=== PATIENT | male | born 1960 ===

== ENCOUNTER 2020-05-16 16:58 | Outpatient (REF) | payer MEDICARE, OTHER, SELFPAY | END 2020-05-16 16:59 | disposition home or self-care (01) | LOC: HO.LAB 16:58 | PROVIDERS: PCP Hospitalist; Visit Provider Internal Medicine | DX: Z20.828 Contact with and (suspected) exposure to other viral communicable diseases (principal) | CPT/HCPCS: U0003 ==

== ENCOUNTER 2020-05-27 15:58 | Emergency (ER) | payer MEDICARE, OTHER, SELFPAY ==
[2020-05-27 16:42] VITALS: BP 140/83; PULSE 92; RESP 18; TEMP 37; O2SAT 97; BMI 25.1
--- NOTE | 2020-05-27 17:29 | XR_ITS ---
EXAMINATION: XR CHEST CLINICAL INFORMATION: Cough. Covid. COMPARISON: None TECHNIQUE: Frontal view of the chest was obtained. FINDINGS: Cardiac silhouette is normal in size. Lungs are well aerated. There is no lobar consolidation. No pleural effusion or pneumothorax. No gross osseous abnormality. XR/XR chest 1V IMPRESSION: No acute pulmonary pathology.
--- NOTE | 2020-05-27 17:36 | ED.NAVMDI ---
HPI - Nausea/Vomiting/Diarrhea General Chief complaint: Nausea/Vomiting/Diarrhea Stated complaint: SOB/COVID + Time Seen by Provider: 05/27/20 16:34 Source: patient Mode of arrival: ambulatory Limitations: no limitations History of Present Illness HPI Narrative: Patient presents to the ED for slight nausea/vomiting / diarrhea, and mild SOB. Patient states no fever or chills. Patient states having symptoms for the past 4 days, and recently diagnosed with COVID 4 days ago. Patient states family members at home having similar symptoms. Associated nausea: Yes ( mild) Related Data Previous Rx's Medication Instructions Recorded sertraline 100 mg tablet 100 mg PO DAILY 90 Days #90 tab 04/25/20 Allergies Allergy/AdvReac Type Severity Reaction Status Date / Time No Known Allergies Allergy Verified 05/27/20 16:42 Review of Systems Review of Systems: Yes all other systems are reviewed and are negative Constitutional: Constitutional: Reports as per HPI and Reports no additional constitutional complaints Eyes: Eyes: Reports as per HPI and Reports no additional eye complaints ENT: Reports system reviewed and no additional complaints, except as documented and Reports as per HPI Cardiovascular: Cardiovascular: Reports as per HPI, Reports no additional cardiovascular complaints, Denies chest pain, Denies chest pain at rest, Denies chest pain with activity, Denies dyspnea, Denies dyspnea on exertion, Denies orthopnea and Denies paroxysmal nocturnal dyspnea Respiratory: Respiratory: Denies cough, Denies pain on inspiration, Denies pain with cough, Denies dyspnea and Denies dyspnea on exertion Gastrointestinal: Gastrointestinal: Reports as per HPI, Reports no additional gastrointestinal complaints, Denies abdominal pain, Reports diarrhea ( Mild), Reports nausea ( mild) and Reports vomiting ( mild) Genitourinary: Genitourinary: Reports no additional male genitourinary complaints and Reports as per HPI Musculoskeletal: Musculoskeletal: Reports no additional musculoskeletal complaints and Reports as per HPI Neurologic: Reports system reviewed and no additional complaints, except as documented and Reports as per HPI Psychiatric: Psychiatric: Reports no additional psychiatric complaints and Reports as per HPI [facility] Past Medical History Medical History (Updated 05/27/20 @ 18:42 by CARMEN Rod) Depression Social History Social History Advance Directives: No Advance Directives Information Provided: Yes Physical Exam Vital Signs: Vital Signs: Last Vital Signs Temp 98.6 F 05/27/20 16:42 Pulse 92 05/27/20 16:42 Resp 18 11/09/20 16:42 BP 140/83 H 05/27/20 16:42 Pulse Ox 97 05/27/20 16:42 Body Mass Index 25.1 Const: General: cooperative, healthy appearing, comfortable, no acute distress, well developed, alert, awake and Physically active Orientation/consciousness: patient oriented x3 HENMT: Head: Yes normal to inspection and Yes No palpable skull fracture present Eyes: General: appearance normal, both eyes and all related structures Visual Ingram: normal visual ingram by confrontation Neck: Neck: Yes normal visual inspection, Yes full ROM, Yes no lymphadenopathy, Yes no meningeal signs and Yes trachea midline Chest: Chest palpation & inspection: normal inspection of the chest, normal palpation of entire chest wall and no localized rib tenderness Resp: Effort & Inspection: normal respiratory effort, able to speak in complete sentences, normal respiratory pattern, no audible wheezes and no cough Auscultation: clear to auscultation bilaterally, no crackles, no rales, no rhonchi and no wheezes Cardio: Jugular venous distension: no JVD Heart sounds: S2 normal heart sound present GI: Inspection: Yes normal to inspection and No abdominal wall ecchymosis Palpation (GI): Soft to palpation, not firm, nontender, no guarding and not rigid : General: No CVA tenderness and Yes no CVA tenderness Back/Spine/Pelvis: Back: no CVA tenderness, No CVA tenderness and No back tenderness Skin: General skin exam: no rashes or lesions noted Neuro: General: patient oriented x3, gait normal, no meningeal signs and CN's II-XI intact bilaterally Cranial nerves: Yes CN's II-XII intact bilaterally Extrem: Other: negative for any swelling, redness, calf tenderness, or pitting edema of lower extremities. General: Yes normal to inspection and Yes full ROM Psych: Appearance: grossly normal, well kempt and not disheveled Course Course Course Narrative: patient presently not in any distress. Patient is on the phone watching videos. Patient speaking in clear sentences. Patient abdomen is nontender and benign. Patient's vital signs are stable. Patient is not in acute respiratory distress. Patient will be sent for chest x-ray needs to make sure there is no bilateral opacity. Reevaluation(s) Reevaluation #1: Patient's chest x-ray came back negative for any bilateral opacities. Patient presently not in any Respiratory distress. Patient is not toxic appearing. Patient is safe for discharge. Patient educated on continuing quarantine. MDM - Nausea/Vomiting/Diarrhea MDM Narrative Medical decision making narrative: COVID positive 19 Discharge Plan Discharge Clinical Impression: COVID-19 Patient Disposition: Home, Self-Care Instructions: COVID-19 (Coronavirus Disease 2019) (ED) Additional Instructions: return to the ED for any chest pain, shortness of breath, dizziness, inability to tolerate solid food/liquid, or any other concerning symptoms. Recommend 14 days self-isolation Prescriptions: No Action sertraline 100 mg tablet 100 mg PO DAILY 90 Days Qty: 90 RF: 3 Referrals: Claire Natarajan NP [Primary Care Provider] - 2 days ( Positive COVID-19 with viral sequela.) Interventions: ED Discharge Assessment Last Done: 05/27/20 19:40 Discharge Date/Time: 05/27/20 19:41 Print Language: Puerto Rican
== END 2020-05-27 19:41 | disposition home or self-care (01) ==
PROVIDERS: Emergency Provider Internal Medicine; PCP Hospitalist
DX: U07.1 COVID-19 (principal); R11.2 Nausea with vomiting, unspecified; Z79.899 Other long term (current) drug therapy
CPT/HCPCS: 71045; 99283

== ENCOUNTER 2020-05-30 10:35 | Outpatient (REF) | payer MEDICARE, OTHER, SELFPAY | END 2020-05-30 10:36 | disposition home or self-care (01) | LOC: HO.LAB 10:35 | PROVIDERS: Visit Provider Internal Medicine | DX: Z20.828 Contact with and (suspected) exposure to other viral communicable diseases (principal) | CPT/HCPCS: C9803; U0003 ==

== ENCOUNTER 2020-06-27 06:12 | Outpatient (REF) | payer MEDICARE, OTHER, SELFPAY ==
[2020-06-27 07:23] LABS: Hematocrit 43.6 % (42-52); Hemoglobin 14.8 g/dl (14.0-18.0); Mean Corpuscular HGB Conc 33.9 g/dl (31.0-36.0); Mean Corpuscular Hemoglobin 29.5 pg (27.0-33.0); Mean Corpuscular Volume 86.9 fL (80-98); Platelet Count 218 X10*3/uL (160-400); Red Blood Count 5.02 X10*6/uL (4.60-5.80); Red Cell Distribution Width 13.2 % (11.0-16.0); White Blood Count 5.9 X10*3/uL (4.8-10.8)
[2020-06-27 07:42] LABS: Alanine Aminotransferase 19 U/L (0-40); Albumin Level 4.3 g/dL (3.5-5.0); Alkaline Phosphatase 58 U/L (39-117); Anion Gap 11 (12-20); Aspartate Amino Transferase 17 U/L (5-37); Bilirubin Direct 0.3 mg/dL (0.0-0.5); Bilirubin Total 0.5 mg/dL (0.0-1.0); Blood Urea Nitrogen 8 mg/dL (9-16); Carbon Dioxide 28 mmol/L (22-29); Chloride 106 mmol/L (96-108); Cholesterol 171 mg/dL; Estimated Glomerular Filt Rate > 60; Glucose Fasting 161 mg/dL (60-99); HDL Cholesterol 41 mg/dL; LDL Cholesterol Calculated 110 mg/dl; Potassium 4.2 mmol/l (3.3-5.1); Sodium 141 mmol/L (135-145); Total Protein 6.9 g/dL (6.5-8.0); Triglycerides 100 mg/dL
[2020-06-27 08:06] LABS: TSH reflex Free T4 1.11 mIU/mL (0.32-4.0)
== END 2020-06-27 06:13 | disposition home or self-care (01) ==
LOC: HO.LAB 06:12
PROVIDERS: Visit Provider Hospitalist
DX: Z00.00 Encounter for general adult medical examination without abnormal findings (principal); Z13.220 Encounter for screening for lipoid disorders; Z13.29 Encounter for screening for other suspected endocrine disorder
CPT/HCPCS: 36415; 80048; 80061; 80076; 84443; 85027

== ENCOUNTER 2021-03-03 22:02 | Emergency (ER) | payer MEDICARE, OTHER, SELFPAY ==
[2021-03-03 22:32] VITALS: BP 147/82; PULSE 89; RESP 18; TEMP 36.9; O2SAT 99; BMI 26.4
[2021-03-03 23:11] LABS: Influenza A PCR NEGATIVE (Negative); Influenza B PCR NEGATIVE (Negative); Resp Syncy Virus RNA Qual PCR NEGATIVE (Negative); SARS COV2 PCR INHOUSE NEGATIVE (Negative)
--- NOTE | 2021-03-03 23:29 | ED_ITS ---
HPI - URI/Sore Throat General Chief Complaint: Upper Respiratory Symptoms Stated Complaint: Flu like symptoms Time Seen by Provider: 03/03/21 22:09 Source: patient Mode of arrival: ambulatory History of Present Illness HPI Narrative: Diabetes presents with 2 days of dry cough, itchy left ear, intermittent diarrhea as well as headache but denies any fever, chills, sob, urinary symptoms, nausea or vomiting. PATIENT HAS HAD BOTH COVID-19 VACCINES THE 2ND OF WHICH WAS IN OCTOBER. Related Data Previous Rx's Medication Instructions Recorded sertraline 100 mg tablet 100 mg PO DAILY 90 Days #90 tab 04/25/20 blood sugar diagnostic (OneTouch #10 ea 06/11/20 Verio test strips) lancets 33 gauge (OneTouch Delica #100 ea 06/11/20 Lancets) pravastatin 40 mg tablet 40 mg PO DAILY #90 tab 06/15/20 metformin 750 mg tablet,extended 750 mg PO BID #180 tab 06/19/20 release 24 hr omeprazole 20 mg capsule,delayed 20 mg PO DAILY #90 cap 09/24/20 release pioglitazone 30 mg-glimepiride 2 1 tab PO QAM #90 tab 10/23/20 mg tablet lisinopril 20 mg tablet 20 mg PO DAILY 90 Days #90 tab 12/20/20 Allergies Allergy/AdvReac Type Severity Reaction Status Date / Time No Known Allergies Allergy Verified 03/03/21 22:32 Review of Systems Review of Systems: Pertinent positives and negatives as stated in HPI 10 point review of systems otherwise negative. [facility] Past Medical History Source: nursing notes reviewed Medical History Depression Surgical History History of removal of cyst History of shoulder surgery Family History Family History Father No problems noted. Mother Colon cancer Diabetes Sister Diabetes Social History Social History Advance Directives: No Advance Directives Information Provided: No Physical Exam Vital Signs: Vital Signs: Last Vital Signs Temp 98.4 F 03/03/21 22:32 Pulse 89 03/03/21 22:32 Resp 18 08/16/21 22:32 BP 147/82 H 03/03/21 22:32 Pulse Ox 99 03/03/21 22:32 Body Mass Index 26.4 VITAL SIGNS: Reviewed. GENERAL: Well developed, well nourished, in no acute distress. HEAD: Normocephalic/atraumatic, EYES: PERRLA, EOMI EARS: Ext canals without abnormality, TMs non-bulging and non-erythematous NOSE: Nares patent bilateral, boggy turbinates OROPHARYNX: no oral lesions noted, posterior pharynx clear and non-erythematous without noted tonsillar enlargement/erythema/exudates NECK: Supple, no adenopathy LUNGS: Normal breath sounds. No adventitious sounds or accessory muscle use. SpO2<99> CARDIOVASCULAR: Regular rate and rhythm without noted murmurs ABDOMEN: Soft, non-tender, non-distended with bowel sounds, no CVA tenderness SKIN: Inspection of the skin reveals no rashes NEUROLOGIC: Alert and oriented x 4. Course Course Course Narrative: 60-year-old male with history and clinical presentation consistent with allergies, viral syndrome. Review of all investigations negative for acute findings and patient discharged in stable condition with instructions to follow-up with his primary care provider as well as obtaining a 2nd COVID-19 test in the next 3-4 days. MDM - URI/Sore Throat Lab Data Labs: Lab Results 03/03/21 Range/Units 22:28 Coronavirus (PCR) NEGATIVE (Negative) Influenza Type A (PCR) NEGATIVE (Negative) Influenza Type B (PCR) NEGATIVE (Negative) RSV RNA Qual (PCR) NEGATIVE (Negative) Discharge Plan Discharge Clinical Impression: Viral syndrome Patient Disposition: Home, Self-Care Instructions: Viral Syndrome (ED) Additional Instructions: 1. Follow-up with your primary care provider the next 1-2 days for re- evaluation. Resume all home medications as prescribed. 2. Recommend repeat COVID-19 testing in the next 3-4 days. [id number] Tylenol/ibuprofen as needed for headache, body aches, any temperatures greater than 100.4. Return to the ER for acute worsening of symptoms. Prescriptions: No Action sertraline 100 mg tablet 100 mg PO DAILY 90 Days Qty: 90 RF: 3 (DME) OneTouch Verio test strips Strip See Rx Instructions .ROUTE .MEDSUPPLY Qty: 10 RF: 0 (DME) lancets [OneTouch Delica Lancets] 33 gauge misc See Rx Instructions .ROUTE .MEDSUPPLY Qty: 100 RF: 0 pravastatin 40 mg tablet 40 mg PO DAILY Qty: 90 RF: 1 metformin 750 mg tablet extended release 24 hr 750 mg PO BID Qty: 180 RF: 3 pioglitazone-glimepiride 30-2 mg tablet 1 tab PO QAM Qty: 90 RF: 2 lisinopril 20 mg tablet 20 mg PO DAILY 90 Days Qty: 90 RF: 1 omeprazole 20 mg capsule,delayed release(DR/EC) 20 mg PO DAILY Qty: 90 RF: 3 Referrals: Claire Natarajan INGREDIENT SPECIALIST [Primary Care Provider] - 2 days Print Language: Frisian
== END 2021-03-03 23:53 | disposition home or self-care (01) ==
PROVIDERS: Emergency Provider Student in an Organized Health Care Education/Training Program; PCP Hospitalist
DX: B34.9 Viral infection, unspecified (principal); Z20.822 Contact with and (suspected) exposure to COVID-19; R51.9 Headache, unspecified; E11.9 Type 2 diabetes mellitus without complications; I10 Essential (primary) hypertension; Z79.899 Other long term (current) drug therapy
CPT/HCPCS: 0241U; 36415; 99282; 99283

== ENCOUNTER 2021-04-24 07:57 | Outpatient (REF) | payer MEDICARE, OTHER, SELFPAY ==
[2021-04-24 09:24] LABS: Alanine Aminotransferase 18 U/L (0-40); Albumin Level 4.1 g/dL (3.5-5.0); Alkaline Phosphatase 63 U/L (39-117); Anion Gap 11 (12-20); Aspartate Amino Transferase 16 U/L (5-37); Bilirubin Total 0.7 mg/dL (0.0-1.0); Blood Urea Nitrogen 12 mg/dL (9-16); Carbon Dioxide 28 mmol/L (22-29); Chloride 108 mmol/L (96-108); Cholesterol 176 mg/dL; Estimated Glomerular Filt Rate > 60; Glucose Fasting 146 mg/dL (60-99); HDL Cholesterol 38 mg/dL; LDL Cholesterol Calculated 108 mg/dl; Potassium 4.5 mmol/L (3.3-5.1); Sodium 142 mmol/L (135-145); Total Protein 6.5 g/dL (6.5-8.0); Triglycerides 151 mg/dL
[2021-04-24 09:48] LABS: Prostate Specific Antigen Scr 0.85 ng/mL (<0.05-4.0); TSH reflex Free T4 0.89 uIU/mL (0.32-4.0)
[2021-04-24 10:19] LABS: Microalbum/Creatinine Ratio Ur 6.6 ug/mg cr
== END 2021-04-24 07:58 | disposition home or self-care (01) ==
LOC: HO.LAB 07:57
PROVIDERS: PCP Family Medicine; Visit Provider Family Medicine
DX: Z00.00 Encounter for general adult medical examination without abnormal findings (principal); Z12.5 Encounter for screening for malignant neoplasm of prostate; E11.9 Type 2 diabetes mellitus without complications; I10 Essential (primary) hypertension
CPT/HCPCS: 36415; 80053; 80061; 82043; 84153; 84443

== ENCOUNTER 2021-06-24 11:01 | Outpatient (REF) | payer MEDICARE, OTHER, SELFPAY | END 2021-06-24 11:02 | disposition home or self-care (01) | LOC: HO.LAB 11:01 | PROVIDERS: PCP Hospitalist; Visit Provider Internal Medicine | DX: Z20.822 Contact with and (suspected) exposure to COVID-19 (principal) | CPT/HCPCS: C9803; U0003; U0005 ==

== ENCOUNTER → 2021-08-20 08:44 | Outpatient (BNVA) | payer MEDICARE, OTHER, SELFPAY | PROVIDERS: PCP Hospitalist; Referring Provider Hospitalist; Visit Provider Nurse Practitioner Family | DX: Z12.11 Encounter for screening for malignant neoplasm of colon (principal); K21.9 Gastro-esophageal reflux disease without esophagitis | CPT/HCPCS: 99202 ==

== ENCOUNTER 2021-10-16 07:37 | Outpatient (REF) | payer MEDICARE, SELFPAY ==
[2021-10-16 08:31] LABS: Hematocrit 43.5 % (42.0-52.0); Hemoglobin 15.3 g/dl (14.0-18.0); Mean Corpuscular HGB Conc 35.2 g/dl (31.0-36.0); Mean Corpuscular Hemoglobin 30.4 pg (27.0-33.0); Mean Corpuscular Volume 86.5 fL (80.0-98.0); Mean Platelet Volume 11.1 fL (9.4-12.4); Platelet Count 217 X10*3/uL (160-400); Red Blood Count 5.03 X10*6/uL (4.60-5.80); Red Cell Distribution Width 12.2 % (11.0-16.0); White Blood Count 5.3 X10*3/uL (4.8-10.8)
[2021-10-16 08:45] LABS: Estimated Average Glucose 148 mg/dL; Hemoglobin A1c % 6.8 %
== END 2021-10-16 07:38 | disposition home or self-care (01) ==
LOC: HO.LAB 07:37
PROVIDERS: PCP Hospitalist; Visit Provider Hospitalist
DX: E11.9 Type 2 diabetes mellitus without complications (principal); I10 Essential (primary) hypertension
CPT/HCPCS: 36415; 83036; 85027

== ENCOUNTER → 2021-12-01 10:30 | Outpatient (BNVA) | payer MEDICARE, SELFPAY | PROVIDERS: PCP Hospitalist; Referring Provider Hospitalist; Visit Provider Internal Medicine Cardiovascular Disease | DX: R06.00 Dyspnea, unspecified (principal) | CPT/HCPCS: 93005; 99202 ==

== ENCOUNTER → 2021-12-03 10:16 | Outpatient (BNVA) | payer MEDICARE, OTHER, SELFPAY | PROVIDERS: PCP Hospitalist; Visit Provider Internal Medicine Pulmonary Disease | DX: R06.00 Dyspnea, unspecified (principal); U09.9 Post COVID-19 condition, unspecified | CPT/HCPCS: 99202 ==

== ENCOUNTER 2021-12-11 13:05 | Outpatient (REF) | payer MEDICARE, OTHER, SELFPAY ==
--- NOTE | ~2021-12-11 | CT_ITS ---
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 COMPARISON: Radiograph 05/27/2020. TECHNIQUE: Multidetector volumetric CT imaging of the chest was done. Axial MIP volume rendering provided. Sagittal and coronal reformatted images were obtained. This CT examination was performed using dose optimization techniques as appropriate, variously including the following: *Automated exposure control *Adjustment of mA and/or kV according to patient size (this includes techniques or standardized protocols for targeted exams where dose is matched to indication/reason for exam; i.e. extremities or head) *Use of iterative reconstruction technique DLP: 152 mGy-cm FINDINGS: BODY MECHANIC: Unremarkable. LUNGS: Minimal secretions in the trachea anteriorly. The central airways are otherwise patent.. No dense consolidation. Minimal peripheral groundglass nodular opacity in the subpleural right upper lobe, for instance on series 8 image 174. 0.2 cm right upper lobe nodule on series 8 image 81.. No pneumothorax. MEDIASTINUM: Normal heart size. No pericardial effusion. No mediastinal lymphadenopathy. PLEURA: There is no pleural effusion. No pleural mass or thickening. AXILLA: No lymphadenopathy. UPPER ABDOMEN: Unremarkable. OSSEOUS STRUCTURES: No acute or suspicious osseous abnormality. Mild degenerative changes of the spine. CT/CT chest wo con IMPRESSION: No consolidation or significant groundglass disease. There are subtle subpleural groundglass nodule in the right upper lobe noted, which could be infectious or inflammatory. There is a right upper lobe 0.2 cm nodule. If this is a high-risk patient, consider 12 month follow-up chest CT. Fleischner guidelines were followed.
== END 2021-12-11 13:06 | disposition home or self-care (01) ==
LOC: HO.CT 13:05
PROVIDERS: Visit Provider Internal Medicine Pulmonary Disease
DX: U09.9 Post COVID-19 condition, unspecified (principal)
CPT/HCPCS: 71250

== ENCOUNTER → 2021-12-12 08:44 | Outpatient (REF) | payer MEDICARE, OTHER, SELFPAY ==
--- NOTE | 2021-12-12 08:47 | CA_ITS ---
Acquisition Time: 2021-12-12 08:57:28 Total Exercise Time: 00:07:18 Test Indications: DYSPNEA Medications: SEE CHART Protocol: MARCUS Max HR: 137 BPM 85% of Pred: 161 BPM Max BP: 144/050 mmHG Max Work Load: 8.9 METS Exercise sstress test with exercise 7 min 18 sec of Marcus protocol, achieving 85% MPHR and request to stop due to sob, with visiably mild to moderate sob, no chest discomfort, with isolated PAC, with normotensive response to exercise, without EKG changes meeting criteria for ischemia. In recovery his breathing quickly normalized. Test reviewed with Dr Liu. Referred By: Dank Liu Overread By: MARY ELLEN GONSALEZ
== END ==
LOC: HO.CARD 08:44
PROVIDERS: PCP Hospitalist; Visit Provider Internal Medicine Cardiovascular Disease
DX: R06.00 Dyspnea, unspecified (principal); U09.9 Post COVID-19 condition, unspecified
CPT/HCPCS: 93017

== ENCOUNTER 2021-12-26 10:26 | Outpatient (REF) | payer MEDICARE, OTHER, SELFPAY ==
--- NOTE | 2021-12-26 12:43 | PFT_ITS ---
INDICATION: Dyspnea. SPIROMETRY: The FEV1 to FVC 87% with an FEV1 of 3.16 L, which is 82% predicted. An FVC of 3.61 L, which is 74% predicted. No significant response to bronchodilators noted. Maximum voluntary ventilation 92% predicted. LUNG VOLUMES: Total lung capacity 65% predicted with an expiratory reserve volume of 34% predicted. DIFFUSION CAPACITY: DLCO of 65% predicted. It does correct to 100% when correcting for the alveolar volume. COMPARISONS: None. INTERPRETATION: No obstructive ventilatory defect no significant response to bronchodilators noted. Normal maximum voluntary ventilation, although the patient does have a restrictive ventilatory defect consistent with mild to moderate restrictive lung disease. Partly due to his body habitus with an expiratory reserve volume of only 34%, interstitial lung conditions, neuromuscular conditions cannot be ruled out. The patient also has a mild diffusion impairment that does correct to normal when correcting for the alveolar volume. Clinical correlation warranted. MD NOE Raygoza/NELSON / [phone]
== END 2021-12-26 10:27 | disposition home or self-care (01) ==
LOC: HO.RESP 10:26
PROVIDERS: PCP Hospitalist; Visit Provider Internal Medicine Pulmonary Disease
DX: R06.00 Dyspnea, unspecified (principal)
CPT/HCPCS: 94060; 94727; 94729

== ENCOUNTER → 2022-01-13 08:16 | Outpatient (REF) | payer MEDICARE, OTHER, SELFPAY ==
--- NOTE | 2022-01-13 08:18 | CA_ITS ---
Transthoracic Echocardiogram Patient (Last, First, Middle): Boone Hernandez, Gender: Male Date of : 1960 Age: 61 Procedure Date: 01/13/2022 Procedure Type: Transthoracic Echocardiogram Location: OP Height: 180.34 cm Weight: 88.91 kg BSA: 2.09 m2 Heart Rate: bpm BP: 140 / 82 mmHg Director Of Operations Home Health: EMELIA Referring MD: Dank Liu MD Corrosion Control Fitter: Roberto Antoine MD Symptoms: R06.00 - Dyspnea, unspecified Study Quality: Fair ECG Rhythm: Sinus Conclusions: - The left ventricular systolic function is normal. The calculated ejection fraction is 63% by biplane method. - Cannot exclude mild basal inferior hypokinesis. - No obvious valvular pathology seen on this study. Findings Left Ventricle Normal left ventricular cavity size. There is mildly increased left ventricular wall thickness. The left ventricular systolic function is normal. The calculated ejection fraction is 63% by biplane method. Diastolic function is normal for age. Cannot exclude mild basal inferior hypokinesis. Right Ventricle Normal right ventricular cavity size and systolic function. Atria Both atria are normal in size. Aortic Valve There is a normal trileaflet aortic valve. There is no aortic valve stenosis. There is no aortic valve regurgitation. Mitral Valve The mitral valve appears normal. There is no mitral valve regurgitation. There is no mitral valve stenosis. Pulmonic Valve The pulmonic valve is likely normal. Tricuspid Valve Normal tricuspid valve structure. There is trace tricuspid valve regurgitation. The pulmonary artery systolic pressure is normal. Great Vessels The asc aorta and aortic arch are normal in size. Venous The inferior vena cava is normal in size and collapses greater than 50% with inspiration. Pericardium/Pleural There is no evidence of pericardial effusion. Prior Study Comparison No prior study available for comparison. Recommendations, Care & Conclusions No obvious valvular pathology seen on this study. Measurements 2D Linear Measurements IVSd: 1.12 0.6-0.9/0.6-1.0 cm LVIDd: 4.33 3.9-5.3/4.2-5.9 cm LVIDd Index: 2.07 2.4-3.2/2.2-3.1 cm/m2 LVIDs: 2.46 2.0-3.6 cm LVPWd: 1.04 0.7-1.1 cm LA Diam: 3.10 2.7-3.8/3.0-4.0 cm LAIDs Index: 1.48 1.5-2.3 cm/m2 LV Mass: 199.86 67-162/88-224 g LV Mass Index: 95.63 43-95/49-115 g/m2 LVOT Diam: 2.00 3.0+(-)1.3 cm 2D Systolic Function EF 4C: 63.60 >55% EF 2C: 61.00 >55% EF BiP: 62.80 >55% Mitral Valve MV Pk E: 1.13 MV PK A: 0.69 MV Decel Time: 187.00 E/A: 1.60 E'Lateral: 9.57 E'Medial: 6.74 E/E' Med: 16.80 E/E' Lat: 11.80 PHT: 55.00 MVA PHT: 4.00 Decel [place]: 6.04 Aortic Valve AoV Pk Nadeem: 1.50 AoV Mn Nadeem: 0.96 AoV VTI: 0.39 AoV Pk Grad: 9.00 Aov Mn Grad: 4.00 JUANCHO Cont.VTI: 2.40 LVOT LVOT Pk Nadeem: 1.33 LVOT Mn Nadeem: 0.75 LVOT VTI: 0.29 LVOT Pk Grad: 7.00 LVOT Mn Grad: 3.00 LVOT Diam: 2.00 LVOT Area: 3.14 Diastolic Function MV Pk E: 1.13 MV Pk A: 0.69 E/A: 1.60 E'Medial: 6.74 E/E' Med: 16.80 E' Laterial: 9.57 E/E' Lat: 11.80 Right Ventricle TAPSE (mm): 21.40 TVS' Nadeem: 13.40 Tricuspid Valve TR Pk Nadeem: 2.33 TR Pk Grad: 22.00 RA Press: 3.00 RVSP: 25.00 Great Vessels Aorta Sinus of Valsalva: 3.59 2.0-3.[address] [place]: 3.09 1.7-3.4 cm Ao Asc: 3.40 2.1-3.4 cm Ao Arch: 3.00 Updated in Other Vendor System with Status of Final Roberto Antoine MD electronically signed on 01/15/2022 2:12:15 PM with status of Final
== END ==
LOC: HO.CARD 08:16
PROVIDERS: PCP Hospitalist; Visit Provider Internal Medicine Cardiovascular Disease
DX: R06.00 Dyspnea, unspecified (principal); U09.9 Post COVID-19 condition, unspecified
CPT/HCPCS: 93306

== ENCOUNTER → 2022-01-16 11:22 | Outpatient (BNVA) | payer MEDICARE, OTHER, SELFPAY | PROVIDERS: PCP Hospitalist; Visit Provider Internal Medicine Pulmonary Disease | DX: R06.00 Dyspnea, unspecified (principal); U09.9 Post COVID-19 condition, unspecified; R94.2 Abnormal results of pulmonary function studies | CPT/HCPCS: 99212 ==

== ENCOUNTER 2022-05-01 09:11 | Outpatient (REF) | payer MEDICARE, OTHER, SELFPAY ==
[2022-05-01 09:58] LABS: Estimated Average Glucose 157 mg/dL; Hemoglobin A1c % 7.1 %
[2022-05-01 10:19] LABS: Alanine Aminotransferase 49 U/L (0-40); Albumin Level 4.7 g/dL (3.5-5.0); Alkaline Phosphatase 60 U/L (39-117); Anion Gap 17 (12-20); Aspartate Amino Transferase 36 U/L (5-37); Blood Urea Nitrogen 20 mg/dL (9-16); Calcium 9.8 mg/dL (8.4-10.2); Carbon Dioxide 27 mmol/L (22-29); Chloride 105 mmol/L (96-108); Cholesterol 183 mg/dL; Estimated Glomerular Filt Rate 54; Glucose Fasting 173 mg/dL (60-99); HDL Cholesterol 38 mg/dL; LDL Cholesterol Calculated 116 mg/dl; Magnesium 1.6 mg/dL (1.6-2.6); Potassium 4.6 mmol/L (3.3-5.1); Sodium 144 mmol/L (135-145); Total Protein 7.3 g/dL (6.5-8.0); Triglycerides 146 mg/dL
== END 2022-05-01 09:12 | disposition home or self-care (01) ==
LOC: HO.LAB 09:11
PROVIDERS: PCP Hospitalist; Visit Provider Hospitalist
DX: Z12.5 Encounter for screening for malignant neoplasm of prostate (principal); E78.00 Pure hypercholesterolemia, unspecified; K21.9 Gastro-esophageal reflux disease without esophagitis; E11.9 Type 2 diabetes mellitus without complications; I10 Essential (primary) hypertension
CPT/HCPCS: 36415; 80053; 80061; 83036; 83735; 84100; 84153

== ENCOUNTER → 2022-05-06 13:27 | Outpatient (BNVA) | payer MEDICARE, OTHER, SELFPAY | PROVIDERS: PCP Hospitalist; Visit Provider Anesthesiology | DX: M53.3 Sacrococcygeal disorders, not elsewhere classified (principal); M47.816 Spondylosis without myelopathy or radiculopathy, lumbar region; M46.1 Sacroiliitis, not elsewhere classified | CPT/HCPCS: 99202 ==

== ENCOUNTER 2022-05-11 09:30 | Outpatient (REF) | payer MEDICARE, OTHER, SELFPAY ==
--- NOTE | ~2022-05-11 | XR_ITS ---
EXAMINATION: XR LUMBOSACRAL SPINE WITH OBLIQUES CLINICAL INFORMATION: Spondylosis COMPARISON: Previous x-ray March 2020 TECHNIQUE: AP, both oblique, and lateral views of the lumbar spine. Lateral view of the lumbosacral junction. FINDINGS: Bone alignment is normal. No fracture or dislocation is seen. Disc spaces are normal. No pars defect is seen. There is mild facet arthritis of the lower lumbar spine at L5-S1. XR/XR lumbar spine 4V min IMPRESSION: Facet arthritis at L5-S1.
--- NOTE | ~2022-05-11 | XR_ITS ---
EXAMINATION: XR PELVIS CLINICAL INFORMATION: Sacrococcygeal disorder COMPARISON: Previous x-ray October 2016 and August 2014 TECHNIQUE: AP view of the pelvis. FINDINGS: Bone alignment is normal. No fracture or dislocation. There is mild arthritis at the hip joints, left greater than right. There is a nonexpansile lucent lesion in the left superior pubic ramus and pubic symphysis that appears unchanged from older exams going back to 2014 and therefore likely benign. The sacroiliac joints are normal. Soft tissues are normal. XR/XR pelvis 1-2V IMPRESSION: Mild bilateral hip arthritis, left greater than right. Stable lucent lesion in the left pubic symphysis and superior pubic ramus from old exam suggestive of a benign lesion.
== END 2022-05-11 09:31 | disposition home or self-care (01) ==
LOC: HO.XRAY 09:30
PROVIDERS: PCP Hospitalist; Visit Provider Anesthesiology
DX: M47.816 Spondylosis without myelopathy or radiculopathy, lumbar region (principal); M53.3 Sacrococcygeal disorders, not elsewhere classified
CPT/HCPCS: 72110; 72170

== ENCOUNTER 2022-06-24 09:00 | Outpatient (RCR) | payer MEDICARE, OTHER, SELFPAY ==
[2022-06-02 08:03] VITALS: BP 118/70; PULSE 66; O2SAT 97
== END 2022-09-10 07:53 | disposition home or self-care (01) ==
LOC: HO.PTWFD 09:00
PROVIDERS: PCP Hospitalist; Visit Provider Anesthesiology
DX: M46.1 Sacroiliitis, not elsewhere classified (principal); M47.816 Spondylosis without myelopathy or radiculopathy, lumbar region; M53.3 Sacrococcygeal disorders, not elsewhere classified
CPT/HCPCS: 97012; 97110; 97116; 97140; 97150; 97161; 97535

== ENCOUNTER 2022-11-30 17:08 | Emergency (ER) | payer MEDICARE, MEDICAID, SELFPAY ==
--- NOTE | ~2022-11-30 | XR_ITS ---
EXAMINATION: XR FOOT, RIGHT CLINICAL INFORMATION: Atraumatic right foot pain for one day. COMPARISON: None available. TECHNIQUE: AP, lateral, and oblique views of the right foot. Indicating arrow points to the fifth metatarsal. FINDINGS: The bones and soft tissues are normal. No fracture. Alignment is anatomic. Small retrocalcaneal spur. Joint spaces are maintained. XR/XR foot RT 2V IMPRESSION: Small retrocalcaneal spur without other significant abnormality.
--- NOTE | 2022-11-30 17:12 | ED.LOWEXIN ---
HPI - Extremity Injury (Lower) General Chief Complaint: Extremity Injury, Lower <Hetal Morris NP - Last Filed: 11/30/22 17:15> Stated Complaint: right foot injury <Hetal Morris NP - Last Filed: 11/30/22 17:15> Time Seen by Provider: 11/30/22 18:35 <Hetal Morris NP - Last Filed: 11/30/22 17:15> Source: patient <CARMEN Jara - Last Filed: 11/30/22 18:45> Mode of arrival: ambulatory <CARMEN Jara - Last Filed: 11/30/22 18:45> Limitations: no limitations <CARMEN Jara Last Filed: 11/30/22 18:45> History of Present Illness HPI Narrative: This is a 61-year-old male history of hypercholesterolemia, gout, GERD, diabetes, hypertension and depression presenting for evaluation of right foot pain, x1 day, atraumatic. Patient reports pain is worse around the little toe, he does not think she injured this toe. He tells me he has a history of gout this feels similar to gout episodes. Denies numbness, tingling, fevers, chills, chest pain, shortness of breath, lower extremity swelling <CARMEN Jara - Last Filed: 11/30/22 18:45> Related Data Home Medications: Previous Rx's Medication Instructions Recorded blood sugar diagnostic (OneTouch #10 ea 06/11/20 Verio test strips) lancets 33 gauge (OneTouch Delica #100 ea 06/11/20 Lancets) blood pressure test kit-large #1 ea 12/10/21 hydrochlorothiazide 25 mg tablet 25 mg PO DAILY #90 tabs 05/07/22 lisinopril 20 mg tablet 20 mg PO DAILY #90 tabs 05/20/22 sertraline 100 mg tablet 100 mg PO DAILY 90 days #90 tabs 05/20/22 metformin 1,000 mg tablet 1,000 mg PO BID #60 tabs 07/21/22 omeprazole 20 mg capsule,delayed 20 mg PO DAILY #90 caps 07/21/22 release pioglitazone 30 mg-glimepiride 2 1 tab PO QAM #90 tabs 07/21/22 mg tablet duloxetine 30 mg capsule,delayed 30 mg PO DAILY #30 caps 07/22/22 release pravastatin 40 mg tablet 40 mg PO DAILY #90 tabs 09/07/22 salmeterol 50 mcg/dose blister 1 inh PO BID 1 month #60 ea 10/19/22 powder for inhalation (Serevent Diskus) albuterol sulfate 90 mcg/actuation 2 puff PO Q4H PRN shortness of 10/22/22 aerosol inhaler (Ventolin HFA) breath or wheezing #18 grams ketorolac 10 mg tablet 10 mg PO TID PRN pain 5 days #15 11/30/22 tabs prednisone 20 mg tablet 40 mg PO DAILY 5 days #10 tabs 11/30/22 <Hetal Morris NP - Last Filed: 11/30/22 17:15> Allergies/Adverse Reactions: Allergies Allergy/AdvReac Type Severity Reaction Status Date / Time No Known Allergies Allergy Verified 11/30/22 17:12 <Hetal Morris NP - Last Filed: 11/30/22 17:15> Review of Systems Review of Systems: Constitutional : No Weight loss, No Fever, No Chills, No Fatigue, No Malaise ENT/Mouth : No sore throat, No Rhinorrhea Eyes: No Eye Pain, No Swelling, No Redness Cardiovascular : No Chest Pain, No SOB, No Dyspnea on Exertion, No Orthopnea, No Edema, No Palpitations Respiratory : No Cough, No Sputum, No Wheezing Gastrointestinal : No Nausea, No Vomiting, No Diarrhea, No Constipation, No abdominal Pain, No Hematochezia, No Melena Genitourinary : No Dysuria, No Urinary Frequency, No Hematuria, Musculoskeletal : + joint pain, No Myalgias, No Joint Swelling Skin : No Skin Lesions, No rash Neuro : No Weakness, No Numbness, No Dizziness, No Headache Psych : No Anxiety/Panic, No Depression All other systems reviewed and are negative <CARMEN Jara - Last Filed: 11/30/22 18:45> Yes all other systems are reviewed and are negative <CARMEN Jara Last Filed: 11/30/22 18:45> PMFSH Past Medical History Attestation statement: The following information was validated with the patient. <CARMEN Jara - Last Filed: 11/30/22 18:45> Source: old records reviewed and nursing notes reviewed <CARMEN Jara - Last Filed: 11/30/22 18:45> Medical History: Medical History Depression <Hetal Morris NP - Last Filed: 11/30/22 17:15> Surgical History: Surgical History History of removal of cyst History of shoulder surgery <Hetal Morris NP - Last Filed: 11/30/22 17:15> Family History Family History: Family History Father No problems noted. Mother Colon cancer Diabetes Sister Diabetes <Hetal Morris NP - Last Filed: 11/30/22 17:15> Social History Social History: Social History Housing: House Alcohol intake: current Alcohol intake frequency: holidays/special occasions only Alcohol type: beer Patient Tobacco Use Status: Former Tobacco user Quit Date: 1996 Tobacco use type: Cigarette Years Smoked: 18 +/- e-Cigarette/Vaping Use: Never Used Second Hand Smoke Exposure: No Advance Directives: No Advance Directives Information Provided: No service: No Current occupational status: retired Current occupational exposures/hazards: No Cognitive needs: No Hearing needs: No Vision needs: No <Hetal Morris NP - Last Filed: 11/30/22 17:15> Physical Exam Vital Signs: Vital Signs: Last Vital Signs Temp 97.0 F 11/30/22 17:13 Pulse 94 11/30/22 17:13 Resp 18 11/30/22 17:13 BP 159/81 H 11/30/22 17:13 Pulse Ox 99 11/30/22 17:13 O2 Del Method Room Air 11/30/22 17:13 BMI result Body Mass Index 28.1 <Hetal Morris NP - Last Filed: 11/30/22 17:15> Vital Signs: Last Vital Signs Temp 97.0 F 11/30/22 17:13 Pulse 94 11/30/22 17:13 Resp 18 11/30/22 17:13 BP 159/81 H 11/30/22 17:13 Pulse Ox 99 11/30/22 17:13 O2 Del Method Room Air 11/30/22 17:13 BMI result Body Mass Index 28.1 Vital signs stable <CARMEN Jara - Last Filed: 11/30/22 18:45> Appearance: Alert.? Oriented X3.? No acute distress.? Head: Normocephalic, atraumatic, no step-offs or deformities Eyes: Pupils equal, round and reactive to light.? CVS: Normal heart rate and rhythm.? Pulses normal.? Respiratory: No respiratory distress.? Breath sounds normal.? Abdomen: Soft and nontender.? Skin: Skin warm and dry.? Normal skin color.? Normal skin turgor.? Extremities: No lower extremity edema.? No calf ttp. 5/5 strength to bilateral upper and lower extremities + tenderness to palpation to right 5th toe particularly on the lateral aspect, bilateral toes with capillary refill less than 2 seconds, normal sensation distally, 2+ dorsalis pedis, anterior tibialis and posterior tibialis pulses equal bilateral. Full range of motion to all toes pain-free. Neuro: Oriented X 3.? No motor deficit.? No sensory deficit. CN 2-12 intact <CARMEN Jara - Last Filed: 11/30/22 18:45> Course Course Course Narrative: This is a rapid medical exam. Deferred additional HPI, ROS, PE to primary provider. 61 yo male with DM, HTN, arthritis, asthma here with right foot pain x 1 day. No injury or trauma. Has h/o gout. On exam patient reports pain over the 5th toe and lateral aspect of the foot. i do not appreciate warmth/redness. Will check x-rays. VSS <Hetal Morris NP - Last Filed: 11/30/22 17:15> Reevaluation(s) Reevaluation #1: X-ray showing a small retrocalcaneal spur without out other abnormality due to patient history will treat for gout. Will give Toradol at home for pain. Educated patient on diagnosis and treatment plan, answered all question, patient verbalizes understanding. At this time patient will be discharged home, advised to return with new or worsening symptoms. Educated on worrisome signs and symptoms and when to return. At this time I feel comfortable discharge home. <CARMEN Jara - Last Filed: 11/30/22 18:45> Time: 18:40 <CARMEN Jara - Last Filed: 11/30/22 18:45> Medical Decision Making Medical Decision Making [facility] Narrative: 61-year-old male presents with atraumatic right foot pain particularly overlying the right little toe toe. History of gout Physical exam significant for No lower extremity edema.? No calf ttp. 5/5 strength to bilateral upper and lower extremities + tenderness to palpation to right 5th toe particularly on the lateral aspect, bilateral toes with capillary refill less than 2 seconds, normal sensation distally, 2+ dorsalis pedis, anterior tibialis and posterior tibialis pulses equal bilateral. Full range of motion to all toes pain-free. Concerns for possible arthritis versus gout. No signs of cellulitis, osteomyelitis, threatened limb, neurovascular compromise, arterial or venous occlusion. Plan imaging ordered from triage <CARMEN Jara Last Filed: 11/30/22 18:45> Differential Diagnosis Differential Diagnoses: The differential diagnosis associated with the presentation includes <CARMEN Jara Last Filed: 11/30/22 18:45> Concerns for possible arthritis versus gout. No signs of cellulitis, osteomyelitis, threatened limb, neurovascular compromise, arterial or venous occlusion. <CARMEN Jara Last Filed: 11/30/22 18:45> Admission/Observation Consideration of admission/observation: Escalation of care including admission/observation considered <CARMEN Jara Last Filed: 11/30/22 18:45> Lab Data [facility] Lab Attestation statement: I reviewed the patient's lab results. <CARMEN Jara Last Filed: 11/30/22 18:45> Independent Interpretation I performed an independent interpretation of an: Plain X-Ray (XR/XR foot RT 2V IMPRESSION: Small retrocalcaneal spur without other significant abnormality.) <CARMEN Jara Last Filed: 11/30/22 18:45> Radiology Impression Discussion of test interpretation with radiology: I have reviewed the radiologist's reading. <CARMEN Jara - Last Filed: 11/30/22 18:45> Prescription Management I considered prescription management with: Pain Medication <CARMEN Jara - Last Filed: 11/30/22 18:45> Core Measures AMI core measures followed: Yes <CARMEN Jara - Last Filed: 11/30/22 18:45> Measure exclusions: not indicated <CARMEN Jara - Last Filed: 11/30/22 18:45> Critical Care Time Critical Care Time Critical Care Time: No <CARMEN Jara - Last Filed: 11/30/22 18:45> Discharge Plan Discharge Clinical Impression: Foot pain, right <Hetal Morris NP - Last Filed: 11/30/22 17:15> Patient Disposition: Home, Self-Care <Hetal Morris NP - Last Filed: 11/30/22 17:15> Instructions: Arthralgia (ED) <Hetal Morris NP - Last Filed: 11/30/22 17:15> Additional Instructions: Take your medications as prescribed. If you were prescribed antibiotics today, it is important that you take your medication to their entirety, do not skip any doses, do not finish them early. Follow-up with your primary care provider this week. Return to the emergency department with new or worsening symptoms. Such as fevers, chills, chest pain, shortness of breath, nausea, vomiting, dizziness, headache, vision changes, lethargy In case of emergency call 911 Toradol has been sent to your pharmacy, you tolerated this well in the department. Please take this as prescribed do not take this with ibuprofen, or other NSAIDs, do not mix this with alcohol. Side effects of this medication including increased risk for bleeding and possible kidney injury. Prednisone can increase your blood glucose level please check your sugars, if they become very high please seek medical attention <Hetal Morris NP - Last Filed: 11/30/22 17:15> Prescriptions: New prednisone 20 mg tablet 40 mg PO DAILY 5 Days Qty: 10 0RF ketorolac 10 mg tablet 10 mg PO TID PRN (Reason: pain) 5 Days Qty: 15 0RF No Action (DME) OneTouch Verio test strips Strip See Rx Instructions .ROUTE .MEDSUPPLY Qty: 10 0RF Rx Instructions: As directed (DME) lancets [OneTouch Delica Lancets] 33 gauge misc See Rx Instructions .ROUTE .MEDSUPPLY Qty: 100 0RF Rx Instructions: As directed hydrochlorothiazide 25 mg tablet 25 mg PO DAILY Qty: 90 3RF lisinopril 20 mg tablet 20 mg PO DAILY Qty: 90 3RF sertraline 100 mg tablet 100 mg PO DAILY 90 Days Qty: 90 3RF metformin 1,000 mg tablet 1,000 mg PO BID Qty: 60 6RF omeprazole 20 mg capsule,delayed release(DR/EC) 20 mg PO DAILY Qty: 90 3RF pioglitazone-glimepiride 30-2 mg tablet 1 tab PO QAM Qty: 90 3RF duloxetine 30 mg capsule,delayed release(DR/EC) 30 mg PO DAILY Qty: 30 1RF Serevent Diskus 50 mcg/dose blister with device 1 inh PO BID 30 Days Qty: 60 8RF albuterol sulfate [Ventolin HFA] 90 mcg/actuation HFA aerosol inhaler 2 puff PO Q4H PRN (Reason: shortness of breath or wheezing) Qty: 18 6RF pravastatin 40 mg tablet 40 mg PO DAILY Qty: 90 3RF (DME) blood pressure test kit-large Kit See Rx Instructions .ROUTE .MEDSUPPLY Qty: 1 0RF Rx Instructions: As directed <Hetal Morris NP - Last Filed: 11/30/22 17:15> Referrals: Claire Natarajan NP [Primary Care Provider] - 2 days <Hetal Morris NP - Last Filed: 11/30/22 17:15>
[2022-11-30 17:13] VITALS: BP 159/81; PULSE 94; RESP 18; TEMP 36.1; O2SAT 99; BMI 28.1
[2022-11-30] MEDS: Ketorolac Tromethamine 30 MG/ML VIAL IM (18:55)
== END 2022-11-30 19:00 | disposition home or self-care (01) ==
PROVIDERS: Emergency Provider Emergency Medicine; PCP Hospitalist
DX: M79.671 Pain in right foot (principal); Z87.891 Personal history of nicotine dependence; Z79.899 Other long term (current) drug therapy
CPT/HCPCS: 73620; 96372; 99283; 99284; J1885

== ENCOUNTER 2022-12-31 07:57 | Outpatient (REF) | payer MEDICARE, MEDICAID, SELFPAY ==
[2022-12-31 09:33] LABS: Uric Acid 7.9 mg/dL (3.4-7.0)
== END 2022-12-31 07:58 | disposition home or self-care (01) ==
LOC: HO.LAB 07:57
PROVIDERS: PCP Hospitalist; Visit Provider Nurse Practitioner Family
DX: M79.671 Pain in right foot (principal)
CPT/HCPCS: 36415; 84550

== ENCOUNTER 2023-01-14 17:08 | Emergency (ER) | payer MEDICARE, MEDICAID, SELFPAY ==
--- NOTE | 2023-01-14 17:12 | ED.GENADULT ---
HPI - General Adult General Chief complaint: Wound/Laceration Stated complaint: stepped on sury nail right foot Source: patient Mode of arrival: ambulatory Limitations: no limitations History of Present Illness HPI narrative: 62 year old male history of high cholesterol, sacroilititis, diabetes, depression, HTN presents w/ puncture wound to R foot w/ sury nail that went through his shoe. States minimal pain was just worried because he is a diabetic. Patient cleaned the wound with alcohol, soap and water. Patient denies difficulties walking, numbness, tingling, fevers, chills. Patient ambulatory into triage without difficulty Related Data Previous Rx's Medication Instructions Recorded blood sugar diagnostic (OneTouch #10 ea 06/11/20 Verio test strips) lancets 33 gauge (OneTouch Delica #100 ea 06/11/20 Lancets) blood pressure test kit-large #1 ea 12/10/21 hydrochlorothiazide 25 mg tablet 25 mg PO DAILY #90 tabs 05/07/22 lisinopril 20 mg tablet 20 mg PO DAILY #90 tabs 05/20/22 sertraline 100 mg tablet 100 mg PO DAILY 90 days #90 tabs 05/20/22 metformin 1,000 mg tablet 1,000 mg PO BID #60 tabs 07/21/22 omeprazole 20 mg capsule,delayed 20 mg PO DAILY #90 caps 07/21/22 release pioglitazone 30 mg-glimepiride 2 1 tab PO QAM #90 tabs 07/21/22 mg tablet duloxetine 30 mg capsule,delayed 30 mg PO DAILY #30 caps 07/22/22 release pravastatin 40 mg tablet 40 mg PO DAILY #90 tabs 09/07/22 salmeterol 50 mcg/dose blister 1 inh PO BID 1 month #60 ea 10/19/22 powder for inhalation (Serevent Diskus) albuterol sulfate 90 mcg/actuation 2 puff PO Q4H PRN shortness of 10/22/22 aerosol inhaler (Ventolin HFA) breath or wheezing #18 grams naproxen 500 mg tablet 500 mg PO BID PRN pain #60 tabs 12/09/22 levofloxacin 750 mg tablet 750 mg PO DAILY 7 days #7 tabs 01/14/23 Allergies Allergy/AdvReac Type Severity Reaction Status Date / Time No Known Allergies Allergy Verified 06/29/23 17:17 Review of Systems Review of Systems: Constitutional : No Weight loss, No Fever, No Chills, No Fatigue, No Malaise ENT/Mouth : No sore throat, No Rhinorrhea Eyes: No Eye Pain, No Swelling, No Redness Cardiovascular : No Chest Pain, No SOB, No Dyspnea on Exertion, No Orthopnea, No Edema, No Palpitations Respiratory : No Cough, No Sputum, No Wheezing Gastrointestinal : No Nausea, No Vomiting, No Diarrhea, No Constipation, No abdominal Pain, No Hematochezia, No Melena Genitourinary : No Dysuria, No Urinary Frequency, No Hematuria, Musculoskeletal : No joint pain, No Myalgias, No Joint Swelling Skin : No Skin Lesions, No rash, + puncture wound Neuro : No Weakness, No Numbness, No Dizziness, No Headache Psych : No Anxiety/Panic, No Depression All other systems reviewed and are negative Yes all other systems are reviewed and are negative [facility] Past Medical History Attestation statement: The following information was validated with the patient. Source: old records reviewed and nursing notes reviewed Medical History Depression Surgical History History of removal of cyst History of shoulder surgery Family History Family History Father No problems noted. Mother Colon cancer Diabetes Sister Diabetes Social History Social History Housing: House Alcohol intake: current Alcohol intake frequency: holidays/special occasions only Alcohol type: beer Patient Tobacco Use Status: Former Tobacco user Quit Date: 1996 Tobacco use type: Cigarette Years Smoked: 18 +/- e-Cigarette/Vaping Use: Never Used Second Hand Smoke Exposure: No service: No Current occupational status: retired Current occupational exposures/hazards: No Cognitive needs: No Hearing needs: No Vision needs: No Physical Exam ED Vital Signs: vss Appearance: Alert.? Oriented X3.? No acute distress.? Head: Normocephalic, atraumatic, no step-offs or deformities Eyes: Pupils equal, round and reactive to light.? Neck: Normal inspection.? Neck supple.? CVS: Normal heart rate and rhythm.? Pulses normal.? Respiratory: No respiratory distress.? Breath sounds normal.? Abdomen: Soft and nontender.? Skin: Skin warm and dry.? Normal skin color.? Normal skin turgor.? Extremities: No lower extremity edema.? No calf ttp. 5/5 strength to bilateral upper and lower extremities + small puncture wound at ball of foot around the 5th toe. 2+ DP, AT, PT pulses equal and b/l. Cap refil < 2 seconds. Normal sensation distally to b/l lower extremiteis. No TTP of foot. Ambulatory w/o difficulty. Neuro: Oriented X 3.? No motor deficit.? No sensory deficit. CN 2-12 intact Course Course Course Narrative: This is an RME: Additional HPI, ROS, PE not included below will be deferred to primary provider. 62 year old male history of high cholesterol, sacroilititis, diabetes, depression, HTN presents w/ puncture wound to R foot w/ sury nail that went through his shoe. States minimal pain was just worried because he is a diabetic. Patient cleaned the wound with alcohol, soap and water. Patient denies difficulties walking, numbness, tingling, fevers, chills. Patient ambulatory into triage without difficulty Medical Decision Making Medical Decision Making [facility] Narrative: 62 yo M presents w/ puncture wound to R foot happened around 3pm needs tetanus. No lower extremity edema.? No calf ttp. 5/5 strength to bilateral upper and lower extremities + small puncture wound at ball of R. foot around the 5th toe. 2+ DP, AT, PT pulses equal and b/l. Cap refil < 2 seconds. Normal sensation distally to b/l lower extremiteis. No TTP of foot. Ambulatory w/o difficulty. Likely puncture wound. No signs of NV compromise, threat to limb, fx, dislocations No indication for imaging. Wound care done at home. No Need for repair. Plan- teatanus and dc home w/ levofloxacin Differential Diagnosis Differential Diagnoses: The differential diagnosis associated with the presentation includes Likely puncture wound. No signs of NV compromise, threat to limb, fx, dislocations Admission/Observation Consideration of admission/observation: Escalation of care including admission/observation considered Not indicated Tests considered The following testing was considered but not selected: ambulatory no TTP no indication for imaging unlikely fx or dislocaiton Core Measures AMI core measures followed: Yes Measure exclusions: not indicated Critical Care Time Critical Care Time Critical Care Time: No Discharge Plan Discharge Clinical Impression: Puncture wound Patient Disposition: Home, Self-Care Additional Instructions: Take your medications as prescribed. If you were prescribed antibiotics today, it is important that you take your medication to their entirety, do not skip any doses, do not finish them early. Follow-up with your primary care provider this week. Return to the emergency department with new or worsening symptoms. In case of emergency call 911 This antibiotic has a black box warning of tendon rupture do not participate in strenuous exercising and if you experience joint pain stop medication and seek medical attention. [place] isela medicamentos seg?n lo prescrito. Si le recetaron antibi?ticos hoy, es importante que tome sloan medicamento en sloan totalidad, no se salte ninguna dosis, no los termine antes de tiempo. Seguimiento con sloan proveedor de atenci?n primaria esta semana. Regrese al departamento de emergencias con s?ntomas nuevos o que empeoran. En jono de emergencia llama al 911 Bailey antibi?caroline tiene ace advertencia de recuadro neda de ruptura del tend?n. No participe en ejercicios extenuantes y, si experimenta dolor en las articulaciones, deje de celi el medicamento y busque atenci?n m?dica. Prescriptions: New levofloxacin 750 mg tablet 750 mg PO DAILY 7 Days Qty: 7 0RF No Action (DME) OneTouch Verio test strips Strip See Rx Instructions .ROUTE .MEDSUPPLY Qty: 10 0RF Rx Instructions: As directed (DME) lancets [OneTouch Delica Lancets] 33 gauge misc See Rx Instructions .ROUTE .MEDSUPPLY Qty: 100 0RF Rx Instructions: As directed hydrochlorothiazide 25 mg tablet 25 mg PO DAILY Qty: 90 3RF lisinopril 20 mg tablet 20 mg PO DAILY Qty: 90 3RF sertraline 100 mg tablet 100 mg PO DAILY 90 Days Qty: 90 3RF metformin 1,000 mg tablet 1,000 mg PO BID Qty: 60 6RF omeprazole 20 mg capsule,delayed release(DR/EC) 20 mg PO DAILY Qty: 90 3RF pioglitazone-glimepiride 30-2 mg tablet 1 tab PO QAM Qty: 90 3RF duloxetine 30 mg capsule,delayed release(DR/EC) 30 mg PO DAILY Qty: 30 1RF Serevent Diskus 50 mcg/dose blister with device 1 inh PO BID 30 Days Qty: 60 8RF albuterol sulfate [Ventolin HFA] 90 mcg/actuation HFA aerosol inhaler 2 puff PO Q4H PRN (Reason: shortness of breath or wheezing) Qty: 18 6RF pravastatin 40 mg tablet 40 mg PO DAILY Qty: 90 3RF naproxen 500 mg tablet 500 mg PO BID PRN (Reason: pain) Qty: 60 2RF (DME) blood pressure test kit-large Kit See Rx Instructions .ROUTE .MEDSUPPLY Qty: 1 0RF Rx Instructions: As directed Referrals: Claire Natarajan NP [Primary Care Provider] - 2 days
[2023-01-14 17:13] VITALS: BP 153/88; PULSE 96; RESP 16; TEMP 36.8; O2SAT 96; BMI 27.9
[2023-01-14] MEDS: Diphth,Pertus(ACell),Tet Adult 0.5 ML SYRINGE IM (17:51)
== END 2023-01-14 18:09 | disposition home or self-care (01) ==
LOC: HO.ED 17:56
PROVIDERS: Emergency Provider Internal Medicine; PCP Hospitalist
DX: S91.331A Puncture wound without foreign body, right foot, initial encounter (principal); W45.0XXA Nail entering through skin, initial encounter; Y93.9 Activity, unspecified; Y92.9 Unspecified place or not applicable; Y99.9 Unspecified external cause status; E11.9 Type 2 diabetes mellitus without complications; M46.1 Sacroiliitis, not elsewhere classified; I10 Essential (primary) hypertension; Z23 Encounter for immunization
CPT/HCPCS: 90471; 90715; 99282; 99284

== ENCOUNTER 2023-04-23 08:41 | Outpatient (REF) | payer MEDICARE, MEDICAID, SELFPAY ==
[2023-04-28 17:49] LABS: VITAMIN D (1,25 OH) D3 33 pg/mL; Vit D (1,25-Dihydroxy) Total 33 pg/mL (18-72); Vitamin D (1,25 OH) D2 <8 pg/mL
== END 2023-04-23 08:42 | disposition home or self-care (01) ==
LOC: HO.HHCL 08:41
PROVIDERS: Visit Provider Student in an Organized Health Care Education/Training Program
DX: Z00.00 Encounter for general adult medical examination without abnormal findings (principal); Z12.5 Encounter for screening for malignant neoplasm of prostate; Z11.4 Encounter for screening for human immunodeficiency virus [HIV]; Z20.2 Contact with and (suspected) exposure to infections with a predominantly sexual mode of transmission
CPT/HCPCS: 0353U; 80053; 80061; 82607; 82652; 82746; 83036; 84154; 84443; 85025; 86704; 86706; 86780; 86803; 87389; 87517

== ENCOUNTER 2023-04-27 13:02 | Outpatient (REF) | payer MEDICARE, MEDICAID, SELFPAY | END 2023-04-27 13:03 | disposition home or self-care (01) | LOC: HO.HHCL 13:02 | PROVIDERS: Visit Provider Student in an Organized Health Care Education/Training Program | DX: Z00.00 Encounter for general adult medical examination without abnormal findings (principal) | CPT/HCPCS: 82043; 82570 ==

== ENCOUNTER 2023-07-06 14:05 | Outpatient (AMB) | payer MEDICARE, MEDICAID, SELFPAY ==
--- NOTE | 2023-07-06 14:08 | A.OFFVIS_ITS ---
Intake Vital Signs 07/06/23 14:09 Height 5 ft 11 in Weight 189 lb 2.506 oz BMI 26.4 BP 100/61 Blood Pressure Location Lt brachial Position Sitting Pulse 101 H Intake Visit Reasons: gerd and colonoscopy screening Intake Note: Patient returns to office in follow up for colonoscopy screening. CC: Patient reports having GERD and taking Omeprazole for many years. Last colonoscopy about 10 years ago per PT. Denies other GI concerns today. Maintenance Planning Clerk Required: Yes Accompanied by: Self / Same As Patient Allergies No Known Allergies Allergy (Verified 07/14/23 14:30) HPI gerd and colonoscopy screening HPI Details (1) Screening for colon cancer: Code(s): Z12.11 - Encounter for screening for malignant neoplasm of colon Plan: Patient denies any GI, cardiac symptoms.? Acid reflux suppressed by omeprazole. Colonoscopy in April of 2012 no polyps, diverticulosis and hemorrhoids found. Denies any issues with anesthesia in the past.? Denies any history of sleep apnea.? No history infectious diseases in the past or present.? Not on any anticoagulation therapy.? Patient mother had colorectal cancer at age 70. Patient reports to have shortness of breath when walking up the stairs that is new. Patient reports that this happened after he had COVID-19 in 2019. Symptoms has not resolved yet. Will send patient to see Cardiology for risk stratification. Patient denies melena, hematochezia, unintentional weight loss or ribbon like stools.? Discussed at length the pre-procedure,? prep, diet & medications as well as what to expect prior, during and after the procedure.?? Stressed the importance of good bowel prep. ?Recommended the use of Vaseline or Calmoseptine OTC & baby wipes with bowel movements to promote comfort.? ?Patient verbalizes understanding and agrees to plan of care.? He was given the opportunity to ask questions and all questions answered.? We will see him after the procedure.? (2) GERD (gastroesophageal reflux diseas e): Code(s): K21.9 - Gastro-esophageal reflux disease without esophagitis Qualifiers: Esophagitis presence: esophagitis presence not specified Qualified Code(s): K21.9 - Gastro-esophageal reflux disease without esophagitis Plan: Suppressed with omeprazole, however if patient does not take it even for 1 day his symptoms return and they are pretty severe. Patient reports that he has been on it for almost 10 years. I will send him for endoscopy, assess for esophagitis, Barrow's, gastric or peptic ulcers, H pylori TODAY'S VISIT As mentioned above in HPI patient was seen in August of 2021 and was sent to Cardiology for clearance. Patient had stress test and echo that ultimately were negative for CAD. Patient reports that he has been feeling little better. Denies any chest pain, occasional shortness of breath with exertion that patient contributes to COVID. Acid reflux for the most part is controlled with omeprazole, however patient has been on omeprazole for very long time. He will still have breakthrough symptoms occasionally despite taking omeprazole every day. Occasional epigastric discomfort with dyspepsia without dysphagia or odynophagia. Patient denies any melena, hematochezia, unintentional weight loss or ribbon like stools. Patient is not on any anticoagulation medication. [facility] Medical History Depression Surgical History H/O colonoscopy History of removal of cyst History of shoulder surgery Family History Father No problems noted. Mother Colon cancer Diabetes Sister Diabetes Social History (System 07/14/23 @ 14:30 by Mei Chung) Housing: House Alcohol intake: current Alcohol intake frequency: holidays/special occasions only Alcohol type: beer Patient Tobacco Use Status: Former Tobacco user Quit Date: 1996 Tobacco use type: Cigarette Years Smoked: 18 +/- e-Cigarette/Vaping Use: Never Used Second Hand Smoke Exposure: No service: No Current occupational status: retired Current occupational exposures/hazards: No Cognitive needs: No Hearing needs: No Vision needs: No Physical Exam Vital Signs: Last Vital Signs Pulse 101 H 07/06/23 14:09 BP 100/61 07/06/23 14:09 BMI result Body Mass Index 26.4 Assessment & Plan Assessment & Plan (1) GERD (gastroesophageal reflux disease): Code(s): K21.9 - Gastro-esophageal reflux disease without esophagitis Qualifiers: Esophagitis presence: esophagitis presence not specified Qualified Code(s): K21.9 - Gastro-esophageal reflux disease without esophagitis (2) Screening for colon cancer: Code(s): Z12.11 - Encounter for screening for malignant neoplasm of colon Plan Will book colonoscopy today. Patient denies any cardiac or respiratory symptoms. As mentioned above patient had stress test and echo that did not show any suspicion for CAD. Please call Dr. Liu office to see if we can proceed. What to expect before during and after the procedure discussed with patient. The importance of good bowel prep stressed with patient. Clear liquid diet day before the procedure discussed with him as well. I will see him after the procedure, sooner on as needed basis. Patient is agreeable to this plan and verbalizes understanding of instructions. He was given the opportunity to ask questions and all questions answered. Thank you for allowing me to participate in his care Medications: New bisacodyl (Dulcolax (bisacodyl)) take 4 tabs at noon the day before your colonoscopy 20 mg (4 x 5 mg) PO ONCE 4 tabs 0RF constipation 1 day Z12.11 - Encounter for screening for malignant neoplasm of colon Coding Level of Care Code Est Pt Level 4 (18346) Diagnoses Gastroesophageal reflux disease, unspecified whether esophagitis present K21.9 Esophagitis presence: esophagitis presence not specified Screening for colon cancer Z12.11 Time Spent (min) 35 Comment 20 minutes spent with patient and additional 15 minutes spent reviewing his records
[2023-07-06 14:09] VITALS: BP 100/61; PULSE 101; BMI 26.4
== END 2023-07-06 15:29 | disposition home or self-care (01) ==
PROVIDERS: PCP Student in an Organized Health Care Education/Training Program; Visit Provider Nurse Practitioner Family
DX: K21.9 Gastro-esophageal reflux disease without esophagitis (principal); Z12.11 Encounter for screening for malignant neoplasm of colon
CPT/HCPCS: 99214

== ENCOUNTER → 2023-07-06 14:05 | Outpatient (BNVA) | payer MEDICARE, MEDICAID, SELFPAY | PROVIDERS: PCP Student in an Organized Health Care Education/Training Program; Visit Provider Nurse Practitioner Family | DX: Z12.11 Encounter for screening for malignant neoplasm of colon (principal); K21.9 Gastro-esophageal reflux disease without esophagitis | CPT/HCPCS: 99212 ==

== ENCOUNTER 2023-07-09 10:36 | Outpatient (REF) | payer MEDICARE, MEDICAID, SELFPAY ==
[2023-07-09 11:55] LABS: Alanine Aminotransferase 30 U/L (0-40); Albumin Level 4.8 g/dL (3.5-5.0); Alkaline Phosphatase 51 U/L (39-117); Anion Gap 15 (12-20); Aspartate Amino Transferase 19 U/L (5-37); Bilirubin Total 0.6 mg/dL (0.0-1.0); Blood Urea Nitrogen 27 mg/dL (9-16); Carbon Dioxide 28 mmol/L (22-29); Chloride 102 mmol/L (96-108); Estimated Glomerular Filt Rate 46; Glucose Random 155 mg/dL (60-115); Potassium 4.3 mmol/L (3.3-5.1); Sodium 141 mmol/L (135-145); Total Protein 7.8 g/dL (6.5-8.0)
== END 2023-07-09 10:37 | disposition home or self-care (01) ==
LOC: HO.HHCL 10:36
PROVIDERS: Visit Provider Student in an Organized Health Care Education/Training Program
DX: E11.9 Type 2 diabetes mellitus without complications (principal)
CPT/HCPCS: 36415; 80053

== ENCOUNTER 2023-07-22 14:33 | Outpatient (REF) | payer MEDICARE, MEDICAID, SELFPAY ==
[2023-07-22 16:28] LABS: Alanine Aminotransferase 24 U/L (0-40); Albumin Level 4.7 g/dL (3.5-5.0); Alkaline Phosphatase 46 U/L (39-117); Anion Gap 17 (12-20); Aspartate Amino Transferase 19 U/L (5-37); Bilirubin Total 0.5 mg/dL (0.0-1.0); Blood Urea Nitrogen 21 mg/dL (9-16); Calcium 9.9 mg/dL (8.4-10.2); Carbon Dioxide 25 mmol/L (22-29); Chloride 106 mmol/L (96-108); Estimated Glomerular Filt Rate 51; Glucose Random 122 mg/dL (60-115); Potassium 4.6 mmol/L (3.3-5.1); Sodium 143 mmol/L (135-145); Total Protein 7.6 g/dL (6.5-8.0)
== END 2023-07-22 14:34 | disposition home or self-care (01) ==
LOC: HO.HHCL 14:33
PROVIDERS: Visit Provider Student in an Organized Health Care Education/Training Program
DX: E11.9 Type 2 diabetes mellitus without complications (principal)
CPT/HCPCS: 36415; 80053

== ENCOUNTER 2023-11-02 09:41 | Day surgery (SDC) | payer MEDICARE, MEDICAID, SELFPAY ==
[2023-10-28 11:48] VITALS: BMI 26.4
[2023-11-02 10:49] VITALS: BP 127/64; PULSE 72; RESP 16; TEMP 36.3; O2SAT 98
--- NOTE | 2023-11-02 10:50 | HO.ANESPROP2 ---
[facility] Active Problems Active Problems: All Active Problems Sacroiliitis (Acute) Spondylosis of lumbar region without myelopathy or radiculopathy (Acute) Coccydynia (Acute) High cholesterol (Acute) Restrictive pattern present on pulmonary function testing (Acute) Post covid-19 condition, unspecified (Acute) Dyspnea on exertion (Acute) Persistent dyspnea after COVID-19 (Acute) Screening for colon cancer (Acute) Back pain (Acute) GERD (gastroesophageal reflux disease) (Acute) Screening for prostate cancer (Acute) Annual visit for general adult medical examination without abnormal findings (Acute) Back strain (Acute) Diabetes type 2, controlled (Acute) Well adult exam (Acute) Hypertension, essential (Acute) COVID-19 (Acute) Depression (Acute) Past Medical History Medical History HTN (hypertension) Diabetes GERD (gastroesophageal reflux disease) Back pain Depression Family History Family History Father No problems noted. Mother Colon cancer Diabetes Sister Diabetes Family history of problems with anesthesia: No Surgical History Surgical History H/O colonoscopy History of removal of cyst History of shoulder surgery History of Problems with Anesthesia: No Social History Social History (System 07/14/23 @ 14:30 by Mei Chung) Housing: House Alcohol intake: current Alcohol intake frequency: holidays/special occasions only Alcohol type: beer Patient Tobacco Use Status: Former Tobacco user Quit Date: 1996 Tobacco use type: Cigarette Years Smoked: 20 +/- e-Cigarette/Vaping Use: Never Used Second Hand Smoke Exposure: No Use of substances other than those prescribed or required for medical reasons: No Are you DNR?: No Advance Directives: No Advance Directives Information Provided: Yes service: No Current occupational status: retired Current occupational exposures/hazards: No Cognitive needs: No Hearing needs: No Vision needs: No Meds Allergies Allergy/AdvReac Type Severity Reaction Status Date / Time No Known Allergies Allergy Verified 11/02/23 10:49 Home Medications ?Medication ?Instructions ?Recorded ?Confirmed ?Last Taken ?Type dulaglutide 1.5 mg/0.5 mL 1.5 mg subcut QWEEK 1211/02/23 10/19/23 History subcutaneous pen injector (Trulicity) duloxetine 30 mg capsule,delayed 30 mg PO DAILY 07/06/23 11/02/23 11/01/23 History release losartan 50 mg-hydrochlorothiazide 1 tab PO DAILY 07/06/23 11/02/23 11/01/23 History 12.5 mg tablet Exam Height,Weight and Vital Signs: Height 5 ft 11 in Weight 85.729 kg Last Vital Signs Temp 97.3 F 11/02/23 10:49 Pulse 72 11/02/23 10:49 Resp 16 11/02/23 10:49 BP 127/64 11/02/23 10:49 Pulse Ox 98 11/02/23 10:49 O2 Del Method Room Air 11/02/23 10:49 Airway Mallampati Class: II TM Dist: >3cm Neck ROM: Full Assessment and Plan Assessment Anesthesia Assessment: Anesthesia Plan Discussed and Chart Reviewed Final Anesthetic Review Family History of Problems with Anesthesia: No History of Problems with Anesthesia: No NPO: Yes ASA Class: III Final Preanesthetic Review: No Changes in Pt Med Stat, Meds/Allgs Chart Reviewed, Consent Obtained/Reviewed and Anes Risks/Benef Reviewed Patient Risk: Intermediate Procedure Risk: Low Anesthetic Plan Anesthetic Plan: TIVA Disposition: Standard PACU
[2023-11-02 11:18] LABS: Glucose, Whole Blood 143 mg/dL (60-115)
--- NOTE | 2023-11-02 11:27 | MHC.SHP ---
Pre-Procedural Eval Section A - 24 Hr Update-Section A only Date of Service: 11/02/23 Section B - Complete if H&P > 30 days Chief Complaint: Gastro-esophageal reflux disease without esophagit Details of Present Illness: colon screening Relevant Family History (Specify if Yes): No Relevant Social History: None Present Medications: see Short Stay Collaborative assessment Medical History: Significant History (HTN (hypertension) Diabetes GERD (gastroesophageal reflux disease) Back pain Depression) History of Previous Operations: Relevant previous surgery/procedure and date(s) ( H/O colonoscopy History of removal of cyst History of shoulder surgery) Allergies: Allergies Allergy/AdvReac Type Severity Reaction Status Date / Time No Known Allergies Allergy Verified 11/02/23 10:49 Review of Systems Sugical H&P ROS: Negative: Constitution, Cardiovascular, Respiratory, Neurological, Psychiatric, Hem-Onc, Allergic/Immunologic, Gastrointestinal, Genitourinary, Musculoskeletal, Integumentary, Endocrine and Eyes/Ears/Nose/Throat Exam Surgical H&P Exam: Normal: HEENT, Normal: Heart, Normal: Lungs, Normal: Extremities, Normal: Abdomen, Normal: Skin and Normal: Neurological Plan Diagnosis/Plan: Unchanged I have reviewed the history and physical and performed a pertinent physical examination on my patient. No changes have occurred unless specified. Time Spent With Patient Time: Total time managing care of this patient today ____ minutes.
--- NOTE | 2023-11-02 11:29 | W.PM.OPN ---
Operative Note Operative Note Date of Service: 11/02/23 Narrative: Operative Information Procedure Description: EGD, Colonoscopy Indication: GERD, colon screening Anesthesia: MAC FLEXIBLE TRANSORAL UPPER GASTROINTESTINAL ENDOSCOPY AND COLONOSCOPY PROCEDURE NOTE UPPER ENDOSCOPY Consent: Indications for the procedure and potential complications of bleeding, perforation, reaction to medications and missed diagnosis were discussed with the patient and informed consent was obtained. Instrument: Olympus GIF H 190 J mid size upper endoscope Monitoring: Vital signs and clinical assessment, continuous EKG monitoring, Pulse oximetry, Carbon Dioxide monitoring and blood pressure monitoring were done throughout the procedure. Procedure: The patient was placed in the left lateral decubitis position and pre-procedure medications were administered and a bite block was placed. The endoscope was inserted into the mouth and advanced under direct vision to the third part of duodenum. A careful inspection was made as the upper endoscope was withdrawn including a retroflexed examination of the proximal stomach; Findings and interventions are described below. Findings: Larynx:normal Esophagus: GE junction at 40 cm, diaphragm hiatus at 40 cm, one small island of suspected barretts, bx taken Stomach: Mild erythema. Biopsies were obtained. Grade 2 flap valve on retroflexed examination of the cardia. Duodenum: Normal bulb and descending duodenum, bx taken Intervention: Biopsies as noted above, COLONOSCOPY Instrument: Olympus variable stiffness pediatric scope 190L Colonoscopy Monitoring: Vital signs and clinical assessment, continuous EKG monitoring, Pulse oximetry, Carbon Dioxide monitoring and blood pressure monitoring were done throughout the procedure. Colon withdrawal time was 12 minutes. Procedure: The patient was placed in the left lateral decubitis position and pre-procedure medications were administered. After a digital rectal examination of the ano-rectum, the video colonoscope was inserted into the rectum and advanced through the colon to the cecum/TI. The colonoscope was slowly withdrawn in a retrograde panoramic fashion and the colon mucosa was carefully examined including a retroflexed view of the rectum. Findings and interventions are described below. Procedure Difficulty:moderate Findings: Terminal Ileum-normal Cecum:normal Ascending Colon: normal Transverse Colon -normal Descending Colon:normal Sigmoid Colon: mild diverticulosis, 5-8 mm sessile polyp removed with cold snare Rectum: Retroflexion with medium sized internal hemorrhoids, grade I, 10-12 mm sessile polyp removed with cold snare Anorectum - normal Colon preparation: [place] Bowel Preparation Scale Right colon; 2 Transverse colon: 3 Left colon; 2 (0 = Unprepared colon segment with mucosa not seen due to solid stool that cannot be cleared. 1 = Portion of mucosa of the colon segment seen, but other areas of the colon segment not well seen due to staining, residual stool and/or opaque liquid. 2 = Minor amount of residual staining, small fragments of stool and/or opaque liquid, but mucosa of colon segment seen well. 3 = Entire mucosa of colon segment seen well with no residual staining, small fragments of stool or opaque liquid) Impression and Post Procedure Diagnosis: Endoscopy Findings: possible barretts Colonoscopy Findings: diverticulosis colon polyps internal hemorrhoids Plan: Await Pathology results Repeat Colonoscopy in 5 years due to polyps or earlier if clinically indicated High fiber diet leaflet avoid straining at stool, epsom salts and sitz bath, anusol supps or cream GERd precautions Above findings were reviewed with the patient and relevant handouts were provided if indicated.
[2023-11-02 12:32] VITALS: BP 112/60; PULSE 82; RESP 14; TEMP 36.5; O2SAT 97
[2023-11-02 12:47] VITALS: BP 120/63; PULSE 65; RESP 16; TEMP 36.5; O2SAT 99
== END 2023-11-02 13:30 | disposition home or self-care (01) ==
PROVIDERS: PCP Student in an Organized Health Care Education/Training Program; Visit Provider Internal Medicine Gastroenterology
PROC: (CPT 45385; principal; 2023-11-02 13:20)
DX: Z12.11 Encounter for screening for malignant neoplasm of colon (principal); K63.5 Polyp of colon; K62.1 Rectal polyp; K57.30 Diverticulosis of large intestine without perforation or abscess without bleeding; K64.0 First degree hemorrhoids; K21.9 Gastro-esophageal reflux disease without esophagitis; I10 Essential (primary) hypertension; E11.9 Type 2 diabetes mellitus without complications; Z79.899 Other long term (current) drug therapy
CPT/HCPCS: 45385; 43239; 82947; 88305; 88313; 88342; J2704; J3010

== ENCOUNTER → 2023-11-02 09:41 | Outpatient (BNV) | payer MEDICARE, MEDICAID, SELFPAY | PROVIDERS: PCP Student in an Organized Health Care Education/Training Program; Visit Provider Internal Medicine Gastroenterology | DX: Z12.11 Encounter for screening for malignant neoplasm of colon (principal); K21.9 Gastro-esophageal reflux disease without esophagitis; D12.5 Benign neoplasm of sigmoid colon; D12.8 Benign neoplasm of rectum; K64.0 First degree hemorrhoids; K57.30 Diverticulosis of large intestine without perforation or abscess without bleeding | CPT/HCPCS: 43239; 45385 ==

== ENCOUNTER 2023-11-30 08:24 | Outpatient (REF) | payer MEDICARE, MEDICAID, SELFPAY ==
[2023-11-30 11:57] LABS: Alanine Aminotransferase 13 U/L (0-40); Albumin Level 4.4 g/dL (3.5-5.0); Alkaline Phosphatase 45 U/L (39-117); Anion Gap 14 (12-20); Aspartate Amino Transferase 12 U/L (5-37); Bilirubin Total 0.8 mg/dL (0.0-1.0); Blood Urea Nitrogen 22 mg/dL (9-16); Calcium 9.5 mg/dL (8.4-10.2); Carbon Dioxide 24 mmol/L (22-29); Chloride 109 mmol/L (96-108); Cholesterol 145 mg/dL (<200); Estimated Glomerular Filt Rate 48; Glucose Random 158 mg/dL (60-115); HDL Cholesterol 39 mg/dL (>40); LDL Cholesterol Calculated 82 mg/dL (<100); Potassium 4.2 mmol/L (3.3-5.1); Sodium 143 mmol/L (135-145); Total Protein 7.1 g/dL (6.5-8.0); Triglycerides 124 mg/dL (<150)
[2023-11-30 12:03] LABS: Estimated Average Glucose 123 mg/dL; Hemoglobin A1c % 5.9 % (<6.0)
[2023-11-30 12:23] LABS: Folate 11.6 ng/mL (> or = 4.0); Vitamin B12 423 pg/mL (200-900)
== END 2023-11-30 08:25 | disposition home or self-care (01) ==
LOC: HO.HHCL 08:24
PROVIDERS: Visit Provider Student in an Organized Health Care Education/Training Program
DX: E11.9 Type 2 diabetes mellitus without complications (principal)
CPT/HCPCS: 36415; 80053; 80061; 82607; 82746; 83036

== ENCOUNTER 2023-12-07 09:52 | Outpatient (REF) | payer MEDICARE, MEDICAID, SELFPAY ==
--- NOTE | ~2023-12-07 | XR_ITS ---
EXAMINATION: XR LUMBOSACRAL SPINE CLINICAL INFORMATION: Chronic low back pain without sciatica, patient with low back pain for one month, denies injury. COMPARISON: 04/05/2020. TECHNIQUE: Three views of the lumbosacral spine. FINDINGS: Straightening of the normal lumbar lordosis. Mild facet arthritis at L5-S1. Lumbar vertebral body heights are preserved. Lumbar disc space heights are maintained. Bones appear demineralized. Degenerative changes in the anterior osteophytes in the imaged thoracic spine. XR/XR lumbar spine 2-3V IMPRESSION: Mild facet arthritis at L5-S1.
== END 2023-12-07 09:53 | disposition home or self-care (01) ==
LOC: HO.HHCX 09:52
PROVIDERS: Visit Provider Student in an Organized Health Care Education/Training Program
DX: M54.50 Low back pain, unspecified (principal); G89.29 Other chronic pain
CPT/HCPCS: 72100

== ENCOUNTER 2023-12-08 15:18 | Outpatient (REF) | payer MEDICARE, MEDICAID, SELFPAY ==
--- NOTE | ~2023-12-08 | US_ITS ---
EXAMINATION: US RETROPERITONEAL LIMITED (RENAL ONLY) CLINICAL INFORMATION: Ongoing elevated creatinine. Evaluate renal obstruction. COMPARISON: X-ray abdomen 07/08/2017. CT abdomen and pelvis 07/07/2017. TECHNIQUE: Real-time imaging of the kidneys. Limited visualization due to bowel gas. FINDINGS: RIGHT KIDNEY: 10.8 x 5.6 x 5.2 cm (SAG x AP x TRV). No hydronephrosis. No renal calculi. Renal cortical thickness is normal. Limited visualization. LEFT KIDNEY: 11.0 x 6.3 x 4.9 cm (SAG x AP x TRV). No hydronephrosis. No renal calculi. Renal cortical thickness is normal. Limited visualization. Lower pole 2.5 cm pole cyst with benign features. There is no indication for follow-up imaging. US/US renal BI IMPRESSION: No hydronephrosis. No renal calculi.
== END 2023-12-08 15:19 | disposition home or self-care (01) ==
LOC: HO.US 15:18
PROVIDERS: PCP Student in an Organized Health Care Education/Training Program; Visit Provider Student in an Organized Health Care Education/Training Program
DX: N18.9 Chronic kidney disease, unspecified (principal)
CPT/HCPCS: 76775

== ENCOUNTER 2024-01-12 08:23 | Outpatient (REF) | payer MEDICARE, MEDICAID, SELFPAY ==
[2024-01-12 12:15] LABS: Alanine Aminotransferase 14 U/L (0-40); Albumin Level 4.4 g/dL (3.5-5.0); Alkaline Phosphatase 49 U/L (39-117); Anion Gap 13 (12-20); Aspartate Amino Transferase 15 U/L (5-37); Bilirubin Total 0.8 mg/dL (0.0-1.0); Blood Urea Nitrogen 18 mg/dL (9-16); Calcium 9.8 mg/dL (8.4-10.2); Carbon Dioxide 26 mmol/L (22-29); Chloride 109 mmol/L (96-108); Estimated Glomerular Filt Rate 42; Glucose Random 165 mg/dL (60-115); Potassium 4.5 mmol/L (3.3-5.1); Sodium 143 mmol/L (135-145); Total Protein 7.2 g/dL (6.5-8.0)
== END 2024-01-12 08:24 | disposition home or self-care (01) ==
LOC: HO.HHCL 08:23
PROVIDERS: Visit Provider Student in an Organized Health Care Education/Training Program
DX: E11.9 Type 2 diabetes mellitus without complications (principal)
CPT/HCPCS: 36415; 80053

== ENCOUNTER 2024-01-18 16:31 | Outpatient (REF) | payer MEDICARE, MEDICAID, SELFPAY ==
[2024-01-18 16:55] LABS: Appearance Urine Turbid; Color Urine Yellow; Glucose Urine UA 500 mg/dL (Negative); Leukocyte Esterase Urine Negative (Negative); Nitrite Urine Negative (Negative); Urine Blood Negative (Negative); Urine Ketones Trace mg/dL (Negative); Urine Protein Negative (Neg-Trace)
[2024-01-18 17:40] LABS: Microalbum/Creatinine Ratio Ur 5.4 ug/mg cr (<30)
[2024-01-18 19:57] LABS: Bacteria Urine None Seen (None Seen); Hyaline Casts Urine 0-2 /LPF (0-2); RBC Urine 0-2 /HPF (0-2); Squamous Epithelial Cell Urine 0-2 /HPF (0-2); WBC Urine 0-5 /HPF (0-5)
== END 2024-01-18 16:32 | disposition home or self-care (01) ==
LOC: HO.HHCLNP 16:31
PROVIDERS: Visit Provider Student in an Organized Health Care Education/Training Program
DX: N17.9 Acute kidney failure, unspecified (principal)
CPT/HCPCS: 81001; 82043; 82570

== ENCOUNTER 2024-01-19 15:21 | Outpatient (AMB) | payer MEDICARE, MEDICAID, SELFPAY ==
--- NOTE | 2024-01-19 15:27 | HO.NEPHOV_ITS ---
Vital Signs 01/19/24 15:31 Height 5 ft 11 in Weight 174 lb BMI 24.3 BP 114/72 Blood Pressure Location Lt brachial Position Sitting Pulse 95 Pulse Source Pulse Oximeter Pulse Oximetry (%) 97 Oxygen Delivery Method Room Air Intake Visit Reasons: CKD Stage 3/ Conf Internet Marketer Required: Yes Internet Marketer Name: Leydi [id number] Accompanied by: Self / Same As Patient Allergies No Known Allergies Allergy (Verified 01/19/24 15:28) Medication List - Last Reconciled 01/19/24 by Ha Haynes MD albuterol sulfate 90 mcg/actuation (Ventolin HFA) 2 puffs PO Q4H PRN blood pressure test kit-large As directed blood sugar diagnostic (SAVOuch Verio test strips) As directed cyclobenzaprine 5 mg PO BEDTIME PRN lancets (SpotMe FitnessTouch Delica Lancets) As directed losartan 100 mg PO DAILY metformin 500 mg PO BID pravastatin 40 mg PO DAILY salmeterol (Serevent Diskus) 1 inh PO BID 1 month semaglutide (Ozempic) mg subcut sertraline 100 mg PO DAILY 90 days HPI Comments Details: . Boone is a pleasant 63-year-old man with a history of diabetes mellitus for almost 8 years along with hypertension. He has been referred for chronic kidney disease. Up until 05/07/2023 serum creatinine is around 1.2 mg/dL. In June of 2023 creatinine bumped up to 1.6 and for the last 6 months creatinine has been staying around 1.5-1.6 mg/dL. He has been referred for evaluation of chronic kidney disease. Recent urine studies did not reveal any significant proteinuria/microalbuminuria or any hematuria. A renal ultrasonogram which was unremarkable. No obstruction. Renal sizes were acceptable with normal echogenicity. He was on losartan 100/12.5. Recently the HCTZ has been dropped and he is currently on losartan 100 mg a day. He has been monitoring his blood pressure at home. Recent blood pressure readings are excellent. Prior to this systolic blood pressure was in the 140s and 150s. He was on Trulicity. Recently this was changed to Ozempic. He is lost about 35 lb. Today he has no specific complaints like headache nausea or vomiting. No shortness of breath. No edema. No urinary symptoms. He does have chronic low back pain. [facility] Medical History (Updated 01/19/24 @ 15:46 by Ha Haynes MD) HTN (hypertension) Diabetes GERD (gastroesophageal reflux disease) Back pain Depression Surgical History H/O colonoscopy History of removal of cyst History of shoulder surgery Family History Father No problems noted. Mother Colon cancer Diabetes Sister Diabetes Social History Housing: House Alcohol intake: current Alcohol intake frequency: holidays/special occasions only Alcohol type: beer Patient Tobacco Use Status: Former Tobacco user Tobacco use type: Cigarette Years Smoked: 20 +/- e-Cigarette/Vaping Use: Never Used Second Hand Smoke Exposure: No service: No Current occupational status: retired Current occupational exposures/hazards: No Cognitive needs: No Hearing needs: No Vision needs: No Physical Exam Vital Signs: Last Vital Signs Pulse 95 01/19/24 15:31 BP 114/72 01/19/24 15:31 Pulse Ox 97 01/19/24 15:31 Oxygen Delivery Method Room Air 01/19/24 15:31 BMI result Body Mass Index 24.3 Const General: comfortable; No acute distress Orientation/consciousness: patient oriented x3 Eyes General: appearance normal, both eyes and all related structures Visual Adame: normal visual adame by confrontation Neck Neck: Yes supple and Yes no JVD Resp Effort & Inspection: normal respiratory effort and respiratory effort not decreased Auscultation: rhonchi Cardio Palpation: no palpable S3 and no palpable S4 Heart sounds: no rubs GI Inspection: Yes normal to inspection Palpation (GI): Soft to palpation Percussion: Yes normal to percussion Auscultation: normal bowel sounds General: Yes no CVA tenderness Back/Spine/Pelvis Back: no CVA tenderness Skin General skin exam: no petechiae and no purpura Neuro General: patient oriented x3 and no focal motor deficits Extrem General: No clubbing and No edema Results Reviewed Results Reviewed: November 2023 RIGHT KIDNEY: 10.8 x 5.6 x 5.2 cm (SAG x AP x TRV). No hydronephrosis. No renal calculi. Renal cortical thickness is normal. Limited visualization. LEFT KIDNEY: 11.0 x 6.3 x 4.9 cm (SAG x AP x TRV). No hydronephrosis. No renal calculi. Renal cortical thickness is normal. Limited visualization. Lower pole 2.5 cm pole cyst with benign features. There is no indication for follow-up imaging. Nephrology Results: Hgb 15.3 g/dl (14.0-18.0) 04/23/23 WBC 5.5 X10*3/uL (4.8-10.8) 04/23/23 Plt Count 203 X10*3/uL (160-400) 04/23/23 Sodium 143 mmol/L (135-145) 01/12/24 Potassium 4.5 mmol/L (3.3-5.1) 01/12/24 Chloride 109 mmol/L (96-108) H 01/12/24 Carbon Dioxide 26 mmol/L (22-29) 01/12/24 BUN 18 mg/dL (9-16) H 01/12/24 Creatinine 1.68 mg/dL (0.5-1.4) H 01/12/24 Calcium 9.8 mg/dL (8.4-10.2) 01/12/24 Urine Protein Negative mg/dL (Neg-Trace) 01/18/24 Urine Creatinine 184.70 mg/dL 01/18/24 Renal US 12/08/23 Assessment & Plan Assessment & Plan (1) CKD (chronic kidney disease): Code(s): N18.9 - Chronic kidney disease, unspecified Category: Medical (2) Hypertension, essential: Code(s): I10 - Essential (primary) hypertension Category: Medical (3) Diabetes type 2, controlled: Code(s): E11.9 - Type 2 diabetes mellitus without complications Category: Medical Qualifiers: Diabetes mellitus termination clerk insulin use: without termination clerk use Diabetes mellitus complication status: without complication Qualified Code(s): E11.9 - Type 2 diabetes mellitus without complications Plan Boone has CKD 3 in the setting of longstanding diabetes mellitus and hypertension. He probably has underlying hypertensive diabetic kidney disease. However he could have sustained acute kidney injury primarily due to hypoperfusion. No evidence of obstruction. No reason to suspect that he has any active glomerulo nephritis or interstitial disease at this time. Goal is to slow the portion of renal disease. Continue to maintain blood pressure less than 130/80. Maintain hemoglobin A1c less than 7%. Agree with losartan for now. He had be a good candidate for SGLT2 inhibitors. In the past he was intolerant to Farxiga. We could try Jardiance. Continue overt nephrotoxic agents including NSAIDs. I have initiated a basic workup. Hypertension Blood pressure is well controlled with the current regimen. Encouraged him to stand low-sodium diet and continue monitoring his blood pressure at home. No changes were made. There has been evidence of anemia secondary hyperparathyroidism at this time and I will continue to monitor as needed. Orders: Orders Complete Blood Count Auto Diff 4 Weeks N18.9 - Chronic kidney disease, unspecified Comprehensive Met. Panel 4 Weeks N18.9 - Chronic kidney disease, unspecified Coding Level of Care Code New Pt Level 5 (12477) Diagnoses CKD (chronic kidney disease) N18.9 Hypertension, essential I10 Controlled type 2 diabetes mellitus without complication, without long-term current use of insulin E11.9 Diabetes mellitus termination clerk insulin use: without usp use Diabetes mellitus complication status: without complication
[2024-01-19 15:31] VITALS: BP 114/72; PULSE 95; O2SAT 97; BMI 24.3
== END 2024-01-19 15:54 | disposition home or self-care (01) ==
LOC: HO.HKAM 15:21
PROVIDERS: PCP Student in an Organized Health Care Education/Training Program; Referring Provider Student in an Organized Health Care Education/Training Program; Visit Provider Internal Medicine Hypertension Specialist
DX: I12.9 Hypertensive chronic kidney disease with stage 1 through stage 4 chronic kidney disease, or unspecified chronic kidney disease (principal); N18.9 Chronic kidney disease, unspecified; E11.9 Type 2 diabetes mellitus without complications
CPT/HCPCS: 99204

== ENCOUNTER → 2024-01-19 15:21 | Outpatient (BNVA) | payer MEDICARE, MEDICAID, SELFPAY | PROVIDERS: PCP Student in an Organized Health Care Education/Training Program; Referring Provider Student in an Organized Health Care Education/Training Program; Visit Provider Internal Medicine Hypertension Specialist | DX: E11.22 Type 2 diabetes mellitus with diabetic chronic kidney disease (principal); I12.9 Hypertensive chronic kidney disease with stage 1 through stage 4 chronic kidney disease, or unspecified chronic kidney disease; N18.30 Chronic kidney disease, stage 3 unspecified | CPT/HCPCS: 99202 ==

== ENCOUNTER 2024-03-02 08:50 | Outpatient (REF) | payer MEDICARE, MEDICAID, SELFPAY ==
[2024-03-02 11:18] LABS: MANUAL DIFF FLAG NO
[2024-03-02 11:31] LABS: Basophils Absolute Auto 0.1 X10*3/uL (0.0-0.2); Basophils Percent Auto 0.7 % (0-2); Eosinophils Absolute Auto 0.1 X10*3/uL (0.0-0.4); Eosinophils Percent Auto 1.6 % (0-4); Hemoglobin 14.4 g/dl (14.0-18.0); Imm Gran Abs Auto 0.03 X10*3/uL (0.00-0.03); Imm Gran Pct Auto 0.4 % (0.0-0.4); Lymphocytes Absolute Auto 1.2 X10*3/uL (1.2-4.9); Mean Corpuscular Hemoglobin 30.5 pg (27.0-33.0); Mean Corpuscular Volume 84.7 fL (80.0-98.0); Mean Platelet Volume 11.3 fL (9.4-12.4); Monocytes Absolute Auto 0.8 X10*3/uL (0.1-1.2); Monocytes Percent Auto 11.7 % (2-11); Neutrophils Absolute Auto 4.6 x10*3/uL (2.0-8.3); Neutrophils Percent Auto 67.6 % (45-73); Platelet Count 222 X10*3/uL (160-400); Red Blood Count 4.72 X10*6/uL (4.60-5.80); Red Cell Distribution Width 11.9 % (11.0-16.0); White Blood Count 6.8 X10*3/uL (4.8-10.8)
[2024-03-02 11:47] LABS: Alanine Aminotransferase 15 U/L (0-40); Albumin Level 4.3 g/dL (3.5-5.0); Alkaline Phosphatase 55 U/L (39-117); Anion Gap 12 (12-20); Aspartate Amino Transferase 15 U/L (5-37); Bilirubin Total 0.9 mg/dL (0.0-1.0); Blood Urea Nitrogen 15 mg/dL (9-16); Calcium 9.5 mg/dL (8.4-10.2); Carbon Dioxide 25 mmol/L (22-29); Chloride 107 mmol/L (96-108); Estimated Glomerular Filt Rate 44; Glucose Random 134 mg/dL (60-115); Potassium 4.2 mmol/L (3.3-5.1); Sodium 140 mmol/L (135-145); Total Protein 6.9 g/dL (6.5-8.0)
== END 2024-03-02 08:51 | disposition home or self-care (01) ==
LOC: HO.HHCL 08:50
PROVIDERS: Visit Provider Internal Medicine Hypertension Specialist
DX: N18.9 Chronic kidney disease, unspecified (principal)
CPT/HCPCS: 36415; 80053; 85025

== ENCOUNTER 2024-03-08 10:31 | Outpatient (REF) | payer MEDICARE, MEDICAID, SELFPAY ==
[2024-03-08 12:38] LABS: Erythrocyte Sedimentation Rate 7 MM/HR (0-15)
[2024-03-08 12:59] LABS: C Reactive Protein 0.18 mg/dL (< or = 0.50)
== END 2024-03-08 10:32 | disposition home or self-care (01) ==
LOC: HO.HHCL 10:31
PROVIDERS: Visit Provider Student in an Organized Health Care Education/Training Program
DX: N18.9 Chronic kidney disease, unspecified (principal); Z87.39 Personal history of other diseases of the musculoskeletal system and connective tissue; I10 Essential (primary) hypertension; E11.9 Type 2 diabetes mellitus without complications
CPT/HCPCS: 36415; 84550; 85652; 86140; 99212

== ENCOUNTER 2024-03-08 15:20 | Outpatient (AMB) | payer MEDICARE, MEDICAID, SELFPAY ==
--- NOTE | 2024-03-08 15:20 | HO.NEPHOV ---
Vital Signs 03/08/24 15:22 Height 5 ft 11 in Weight 180 lb BMI 25.1 BP 120/68 Blood Pressure Location Lt brachial Position Sitting Pulse 88 Pulse Source Pulse Oximeter Pulse Oximetry (%) 99 Oxygen Delivery Method Room Air Intake Visit Reasons: Follow up/ Conf Pin Inserter Required: No Accompanied by: Self / Same As Patient Allergies No Known Allergies Allergy (Verified 03/08/24 15:20) Medication List - Last Reconciled 03/08/24 by Ha Haynes MD albuterol sulfate 90 mcg/actuation (Ventolin HFA) 2 puffs PO Q4H PRN blood pressure test kit-large As directed blood sugar diagnostic (Kvantumuch Verio test strips) As directed cyclobenzaprine 5 mg PO BEDTIME PRN empagliflozin (Jardiance) 10 mg PO DAILY lancets (KS12Touch Delica Lancets) As directed losartan 100 mg PO DAILY metformin 500 mg PO BID omeprazole 20 mg PO DAILY pravastatin 40 mg PO DAILY prednisone 40 mg PO DAILY salmeterol (Serevent Diskus) 1 inh PO BID 1 month semaglutide (Ozempic) mg subcut sertraline 100 mg PO DAILY 90 days HPI Comments Details: . Boone is a pleasant 63-year-old man with a history of diabetes mellitus for almost 8 years along with hypertension. He has been referred for chronic kidney disease. Up until 05/07/2023 serum creatinine is around 1.2 mg/dL. In June of 2023 creatinine bumped up to 1.6 and for the last 6 months creatinine has been staying around 1.5-1.6 mg/dL. He has been referred for evaluation of chronic kidney disease. Recent urine studies did not reveal any significant proteinuria/microalbuminuria or any hematuria. A renal ultrasonogram which was unremarkable. No obstruction. Renal sizes were acceptable with normal echogenicity. He was on losartan 100/12.5. Recently the HCTZ has been dropped and he is currently on losartan 100 mg a day. He has been monitoring his blood pressure at home. Recent blood pressure readings are excellent. Prior to this systolic blood pressure was in the 140s and 150s. He was on Trulicity. Recently this was changed to Ozempic. He is lost about 35 lb. Today he has no specific complaints like headache nausea or vomiting. No shortness of breath. No edema. No urinary symptoms. He does have chronic low back pain. [facility] Medical History (Updated 01/19/24 @ 15:46 by Ha Haynes MD) HTN (hypertension) Diabetes GERD (gastroesophageal reflux disease) Back pain Depression Surgical History H/O colonoscopy History of removal of cyst History of shoulder surgery Family History Father No problems noted. Mother Colon cancer Diabetes Sister Diabetes Social History Housing: House Alcohol intake: current Alcohol intake frequency: holidays/special occasions only Alcohol type: beer Patient Tobacco Use Status: Former Tobacco user Tobacco use type: Cigarette Years Smoked: 20 +/- e-Cigarette/Vaping Use: Never Used Second Hand Smoke Exposure: No service: No Current occupational status: retired Current occupational exposures/hazards: No Cognitive needs: No Hearing needs: No Vision needs: No Physical Exam Vital Signs: Last Vital Signs Pulse 88 03/08/24 15:22 BP 120/68 03/08/24 15:22 Pulse Ox 99 03/08/24 15:22 Oxygen Delivery Method Room Air 03/08/24 15:22 BMI result Body Mass Index 25.1 Results Reviewed Nephrology Results: Hgb 14.4 g/dl (14.0-18.0) 03/02/24 WBC 6.8 X10*3/uL (4.8-10.8) 03/02/24 Plt Count 222 X10*3/uL (160-400) 03/02/24 Sodium 140 mmol/L (135-145) 03/02/24 Potassium 4.2 mmol/L (3.3-5.1) 03/02/24 Chloride 107 mmol/L (96-108) 03/02/24 Carbon Dioxide 25 mmol/L (22-29) 03/02/24 BUN 15 mg/dL (9-16) 03/02/24 Creatinine 1.60 mg/dL (0.5-1.4) H 03/02/24 Calcium 9.5 mg/dL (8.4-10.2) 03/02/24 Urine Protein Negative mg/dL (Neg-Trace) 01/18/24 Urine Creatinine 184.70 mg/dL 01/18/24 Renal US 12/08/23 Assessment & Plan Assessment & Plan (1) CKD (chronic kidney disease): Code(s): N18.9 - Chronic kidney disease, unspecified Category: Medical (2) Hypertension, essential: Code(s): I10 - Essential (primary) hypertension Category: Medical (3) Diabetes type 2, controlled: Code(s): E11.9 - Type 2 diabetes mellitus without complications Category: Medical Qualifiers: Diabetes mellitus trapeze artist insulin use: without [place] [facility] use Diabetes mellitus complication status: without complication Qualified Code(s): E11.9 - Type 2 diabetes mellitus without complications Plan Boone has CKD 3 in the setting of longstanding diabetes mellitus and hypertension. He probably has underlying hypertensive diabetic kidney disease. However he could have sustained acute kidney injury primarily due to hypoperfusion. No evidence of obstruction. No reason to suspect that he has any active glomerulo nephritis or interstitial disease at this time. Goal is to slow the portion of renal disease. Continue to maintain blood pressure less than 130/80. Maintain hemoglobin A1c less than 7%. Agree with losartan for now. He had be a good candidate for SGLT2 inhibitors. In the past he was intolerant to Farxiga. I would try Jardiance. Continue overt nephrotoxic agents including NSAIDs. Hypertension Blood pressure is well controlled with the current regimen. Encouraged him to stand low-sodium diet and continue monitoring his blood pressure at home. No changes were made. There has been evidence of anemia secondary hyperparathyroidism at this time and I will continue to monitor as needed. Orders: Orders Basic Metabolic Panel 1 Month N18.9 - Chronic kidney disease, unspecified Medications: New empagliflozin (Jardiance) 10 mg PO DAILY 30 tabs 1RF Coding Level of Care Code Est Pt Level 4 (51644) Diagnoses CKD (chronic kidney disease) N18.9 Hypertension, essential I10 Controlled type 2 diabetes mellitus without complication, without long-term current use of insulin E11.9 Diabetes mellitus [facility] insulin use: without [place] use Diabetes mellitus complication status: without complication
[2024-03-08 15:22] VITALS: BP 120/68; PULSE 88; O2SAT 99; BMI 25.1
== END 2024-03-08 15:37 | disposition home or self-care (01) ==
LOC: HO.HKAM 15:20
PROVIDERS: PCP Student in an Organized Health Care Education/Training Program; Visit Provider Internal Medicine Hypertension Specialist
DX: I12.9 Hypertensive chronic kidney disease with stage 1 through stage 4 chronic kidney disease, or unspecified chronic kidney disease (principal); N18.9 Chronic kidney disease, unspecified; E11.9 Type 2 diabetes mellitus without complications
CPT/HCPCS: 99214

== ENCOUNTER 2024-03-14 11:00 | Outpatient (RCR) | payer MEDICARE, MEDICAID, SELFPAY | END 2024-04-25 15:52 | disposition home or self-care (01) | LOC: HO.PT 11:00 | PROVIDERS: PCP Student in an Organized Health Care Education/Training Program; Visit Provider Student in an Organized Health Care Education/Training Program | DX: M54.50 Low back pain, unspecified (principal) | CPT/HCPCS: 97014; 97110; 97140; 97161; 97530 ==

== ENCOUNTER 2024-03-28 15:30 | Outpatient (REF) | payer MEDICARE, MEDICAID, SELFPAY ==
--- NOTE | ~2024-03-28 | XR_ITS ---
EXAMINATION: XR FOOT, LEFT CLINICAL INFORMATION: Left foot pain x2 months, atraumatic. COMPARISON: None available. TECHNIQUE: AP, lateral, and oblique views of the left foot. FINDINGS: Mild osteoarthritis of the first MTP joint with small marginal osteophytes and joint space narrowing. Additional mild multifocal osteoarthritis is evident in the interphalangeal joints and at the talonavicular joint. No erosions. A bunionette deformity. Moderate sized enthesopathic spurs are present at the Achilles tendon insertion and plantar fascial origin on the calcaneus. XR/XR foot LT min 3V IMPRESSION: 1. Mild multifocal osteoarthritis in the left foot, most notably at the first MTP joint. 2. Bunionette deformity. Electronically signed by: Bogdan Torres MD 04/11/2024 06:24 PM EDT
== END 2024-03-28 15:31 | disposition home or self-care (01) ==
LOC: HO.HHCX 15:30
PROVIDERS: Visit Provider Nurse Practitioner Primary Care
DX: M79.672 Pain in left foot (principal)
CPT/HCPCS: 73630

== ENCOUNTER 2024-03-29 09:41 | Outpatient (REF) | payer MEDICARE, MEDICAID, SELFPAY | END 2024-03-29 09:42 | disposition home or self-care (01) | LOC: HO.HHCL 09:41 | PROVIDERS: Visit Provider Nurse Practitioner Primary Care | DX: Z13.89 Encounter for screening for other disorder (principal) | CPT/HCPCS: 36415 ==

== ENCOUNTER 2024-03-29 09:43 | Outpatient (REF) | payer MEDICARE, MEDICAID, SELFPAY ==
[2024-03-29 11:59] LABS: Uric Acid 6.5 mg/dL (3.4-7.0)
[2024-03-29 12:10] LABS: Anion Gap 15 (12-20); Blood Urea Nitrogen 16 mg/dL (9-16); Calcium 9.6 mg/dL (8.4-10.2); Carbon Dioxide 23 mmol/L (22-29); Chloride 110 mmol/L (96-108); Estimated Glomerular Filt Rate 47; Glucose Random 176 mg/dL (60-115); Potassium 4.4 mmol/L (3.3-5.1); Sodium 144 mmol/L (135-145)
== END 2024-03-29 09:44 | disposition home or self-care (01) ==
LOC: HO.HHCL 09:43
PROVIDERS: Nurse Practitioner Primary Care; Visit Provider Internal Medicine Hypertension Specialist
DX: N18.9 Chronic kidney disease, unspecified (principal)
CPT/HCPCS: 36415; 80048; 84550

== ENCOUNTER 2024-05-23 13:09 | Outpatient (REF) | payer MEDICARE, MEDICAID, SELFPAY ==
--- NOTE | ~2024-05-23 | XR_ITS ---
EXAMINATION: XR ELBOW, RIGHT CLINICAL INFORMATION: Chronic right elbow pain. COMPARISON: None available. TECHNIQUE: AP, lateral, and bilateral oblique views of the right elbow. FINDINGS: No acute fracture or dislocation. No joint space narrowing or marginal osteophytes. No osseous erosion. Small lateral epicondyle enthesophytes, which could indicate chronic tendinopathy. Olecranon enthesophyte with mild overlying soft tissue swelling, which could represent minimal bursitis versus a soft tissue contusion. No joint effusion. XR/XR elbow RT min 3V IMPRESSION: 1. Olecranon enthesophyte with mild overlying soft tissue swelling, which could represent minimal bursitis versus a soft tissue contusion. 2. Small lateral epicondyle enthesophytes, which could indicate chronic tendinopathy. Electronically signed by: Willem Victoria MD 05/24/2024 09:14 AM ILDA
== END 2024-05-23 13:10 | disposition home or self-care (01) ==
LOC: HO.HHCX 13:09
PROVIDERS: Visit Provider Student in an Organized Health Care Education/Training Program
DX: M25.521 Pain in right elbow (principal)
CPT/HCPCS: 73080

== ENCOUNTER 2024-05-24 09:12 | Outpatient (REF) | payer MEDICARE, MEDICAID, SELFPAY ==
[2024-05-24 11:28] LABS: Hematocrit 45.1 % (42.0-52.0); Hemoglobin 15.7 g/dl (14.0-18.0); Mean Corpuscular HGB Conc 34.8 g/dl (31.0-36.0); Mean Corpuscular Hemoglobin 30.4 pg (27.0-33.0); Mean Corpuscular Volume 87.2 fL (80.0-98.0); Mean Platelet Volume 10.9 fL (9.4-12.4); Platelet Count 221 X10*3/uL (160-400); Red Blood Count 5.17 X10*6/uL (4.60-5.80); Red Cell Distribution Width 12.2 % (11.0-16.0)
[2024-05-24 11:45] LABS: Estimated Average Glucose 117 mg/dL; Hemoglobin A1C 158.6432 umol/L; Hemoglobin A1c % 5.7 % (<6.0); Total Hemoglobin (HGBA1C) 4085.4557 umol/L
[2024-05-24 12:05] LABS: Erythrocyte Sedimentation Rate 5 MM/HR (0-15)
[2024-05-24 12:14] LABS: Rheumatoid Factor < 13.0 IU/mL (<15.0)
[2024-05-24 12:23] LABS: Prostate Specific Antigen 0.85 ng/mL (<0.05-4.0)
[2024-05-24 12:30] LABS: Alanine Aminotransferase 16 U/L (0-40); Albumin Level 4.5 g/dL (3.5-5.0); Alkaline Phosphatase 60 U/L (39-117); Anion Gap 17 (12-20); Aspartate Amino Transferase 17 U/L (5-37); Bilirubin Total 0.7 mg/dL (0.0-1.0); Blood Urea Nitrogen 16 mg/dL (9-16); C Reactive Protein 0.21 mg/dL (< or = 0.50); Calcium 10.2 mg/dL (8.4-10.2); Carbon Dioxide 23 mmol/L (22-29); Chloride 110 mmol/L (96-108); Cholesterol 174 mg/dL (<200); Estimated Glomerular Filt Rate 53; Glucose Random 138 mg/dL (60-115); HBS Num1 92.15 mIU/mL (0-7.99); HBc Num1 0.16 S/CO (0.00-0.79); HBsAGNum1 0.37 S/CO (0.00-0.99); HDL Cholesterol 45 mg/dL (>40); HIV AB/AG Nonreactive (Nonreactive); HIV Num 1 0.06 S/CO (0.00-0.99); Hepatitis B Core Antibody Nonreactive (Nonreactive); Hepatitis B Surface Antigen Negative (Negative); LDL Cholesterol Calculated 110 mg/dL (<100); Potassium 4.7 mmol/L (3.3-5.1); Sodium 145 mmol/L (135-145); Syphilis Screen Nonreactive (Nonreactive); Total Protein 7.3 g/dL (6.5-8.0); Triglycerides 97 mg/dL (<150); Uric Acid 6.4 mg/dL (3.4-7.0); ~HepC Num1 0.07 S/CO (0.00-0.79); ~Hepatitis B Surface Antibody REACTIVE (Nonreactive); ~Hepatitis C Antibody Nonreactive (Nonreactive)
[2024-05-24 12:41] LABS: Creatinine Urine 123.02 mg/dL; Microalbumin Urine < 5.0 mg/L
[2024-05-24 13:58] LABS: CT PCR NOT DETECTED (Not Detect.); NG PCR NOT DETECTED (Not Detect.)
[2024-05-26 22:28] LABS: Cyclic Citrullinated Peptide <16 UNITS
== END 2024-05-24 09:13 | disposition home or self-care (01) ==
LOC: HO.HHCL 09:12
PROVIDERS: Visit Provider Student in an Organized Health Care Education/Training Program
DX: Z00.00 Encounter for general adult medical examination without abnormal findings (principal); M25.551 Pain in right hip; Z12.5 Encounter for screening for malignant neoplasm of prostate; Z13.1 Encounter for screening for diabetes mellitus
CPT/HCPCS: 36415; 80053; 80061; 82043; 82570; 83036; 84153; 84443; 84550; 85027; 85652; 86140; 86200; 86431; 86704; 86706; 86780; 86803; 87340; 87389; 87491; 87591

== ENCOUNTER 2024-06-07 13:22 | Outpatient (AMB) | payer MEDICARE, MEDICAID, SELFPAY ==
[2024-06-07 13:28] VITALS: BP 122/78; PULSE 100; O2SAT 97
--- NOTE | 2024-06-07 13:28 | HO.NEPHOV_ITS ---
Vital Signs 06/07/24 13:28 Height 5 ft 11 in BP 122/78 Blood Pressure Location Lt brachial Position Sitting Pulse 100 Pulse Source Pulse Oximeter Pulse Oximetry (%) 97 Oxygen Delivery Method Room Air Intake Visit Reasons: Nov follow up/ Conf Nuclear Technologist Required: Yes Accompanied by: Self / Same As Patient Allergies No Known Allergies Allergy (Verified 06/07/24 13:32) Medication List - Last Reconciled 06/07/24 by Ha Haynes MD acetaminophen ER 650 mg PO Q8H PRN albuterol sulfate 90 mcg/actuation (Ventolin HFA) 2 puffs PO Q4H PRN amlodipine 5 mg PO DAILY blood pressure test kit-large As directed blood sugar diagnostic (Gear6 Verio test strips) As directed cyclobenzaprine 5 mg PO BEDTIME PRN empagliflozin (Jardiance) 10 mg PO DAILY fluticasone propion-salmeterol 115-21 mcg/actuation (Advair HFA) 2 puffs inhalation BID lancets (mBloxuch Delica Lancets) As directed lidocaine-prilocaine 2.5-2.5 % topical DAILY losartan 100 mg PO DAILY metformin 500 mg PO BID omeprazole 20 mg PO DAILY pravastatin 40 mg PO DAILY prednisone 40 mg PO DAILY salmeterol (Serevent Diskus) 1 inh PO BID 1 month semaglutide (Ozempic) mg subcut sertraline 100 mg PO DAILY 90 days HPI Comments Details: . Boone is a pleasant 63-year-old man with a history of diabetes mellitus for almost 8 years along with hypertension. He has been referred for chronic kidney disease. Up until 05/07/2023 serum creatinine is around 1.2 mg/dL. In June of 2023 creatinine bumped up to 1.6 and for the last 6 months creatinine has been staying around 1.5-1.6 mg/dL. He has been referred for evaluation of chronic kidney disease. Recent urine studies did not reveal any significant proteinuria/microalbuminuria or any hematuria. A renal ultrasonogram which was unremarkable. No obstruction. Renal sizes were acceptable with normal echogenicity. He was on losartan 100/12.5. Recently the HCTZ has been dropped and he is currently on losartan 100 mg a day. He has been monitoring his blood pressure at home. Recent blood pressure readings are excellent. Prior to this systolic blood pressure was in the 140s and 150s. He was on Trulicity. Recently this was changed to Ozempic. He is lost about 35 lb. Today he has no specific complaints like headache nausea or vomiting. No shortness of breath. No edema. No urinary symptoms. He does have chronic low back pain. [facility] Medical History (Updated 01/19/24 @ 15:46 by Ha Haynes MD) HTN (hypertension) Diabetes GERD (gastroesophageal reflux disease) Back pain Depression Surgical History H/O colonoscopy History of removal of cyst History of shoulder surgery Family History Father No problems noted. Mother Colon cancer Diabetes Sister Diabetes Social History Housing: House Alcohol intake: current Alcohol intake frequency: holidays/special occasions only Alcohol type: beer Patient Tobacco Use Status: Former Tobacco user Tobacco use type: Cigarette Years Smoked: 20 +/- e-Cigarette/Vaping Use: Never Used Second Hand Smoke Exposure: No service: No Current occupational status: retired Current occupational exposures/hazards: No Cognitive needs: No Hearing needs: No Vision needs: No Physical Exam Vital Signs: Last Vital Signs Pulse 100 06/07/24 13:28 BP 122/78 06/07/24 13:28 Pulse Ox 97 06/07/24 13:28 Oxygen Delivery Method Room Air 06/07/24 13:28 Comfortable Neck supple no JVD. Lungs entry equal no rales. Heart S1-S2 heard no gallop or rub. Abdomen soft nontender. Neuro alert awake oriented. No asterixis. Extremities no edema. Results Reviewed Nephrology Results: Hgb 15.7 g/dl (14.0-18.0) 05/24/24 WBC 6.0 X10*3/uL (4.8-10.8) 05/24/24 Plt Count 221 X10*3/uL (160-400) 05/24/24 Sodium 145 mmol/L (135-145) 05/24/24 Potassium 4.7 mmol/L (3.3-5.1) 05/24/24 Chloride 110 mmol/L (96-108) H 05/24/24 Carbon Dioxide 23 mmol/L (22-29) 05/24/24 BUN 16 mg/dL (9-16) 05/24/24 Creatinine 1.36 mg/dL (0.5-1.4) 05/24/24 Calcium 10.2 mg/dL (8.4-10.2) 05/24/24 Urine Protein Negative mg/dL (Neg-Trace) 01/18/24 Urine Creatinine 123.02 mg/dL 05/24/24 Assessment & Plan Assessment & Plan (1) CKD (chronic kidney disease): Code(s): N18.9 - Chronic kidney disease, unspecified Category: Medical (2) Hypertension, essential: Code(s): I10 - Essential (primary) hypertension Category: Medical (3) Diabetes type 2, controlled: Code(s): E11.9 - Type 2 diabetes mellitus without complications Category: Medical Qualifiers: Diabetes mellitus complication status: without complication Diabetes mellitus termination clerk insulin use: without retirement use Qualified Code(s): E11.9 - Type 2 diabetes mellitus without complications Plan Boone has CKD 3 in the setting of longstanding diabetes mellitus and hypertension. He probably has underlying hypertensive diabetic kidney disease. However he could have sustained acute kidney injury primarily due to hypoperfusion. No evidence of obstruction. No reason to suspect that he has any active glomerulo nephritis or interstitial disease at this time. Goal is to slow the portion of renal disease. Continue to maintain blood pressure less than 130/80. Maintain hemoglobin A1c less than 7%. Agree with losartan for now. He had be a good candidate for SGLT2 inhibitors. In the past he was intolerant to Farxiga. Keep Jardiance. Continue to avoid nephrotoxic agents including NSAIDs. Hypertension Blood pressure is well controlled with the current regimen. Encouraged him to stand low-sodium diet and continue monitoring his blood pressure at home. No changes were made. There has been evidence of anemia secondary hyperparathyroidism at this time and I will continue to monitor as needed. Orders: Orders Total Protein Urine Random 5 Months N18.9 - Chronic kidney disease, unspecified Creatinine Urine 5 Months N18.9 - Chronic kidney disease, unspecified Basic Metabolic Panel 5 Months N18.9 - Chronic kidney disease, unspecified Coding Level of Care Code Est Pt Level 4 (13493) Diagnoses CKD (chronic kidney disease) N18.9 Hypertension, essential I10 Controlled type 2 diabetes mellitus without complication, without long-term current use of insulin E11.9 Diabetes mellitus complication status: without complication Diabetes mellitus retirement insulin use: without retirement use
== END 2024-06-07 14:29 | disposition home or self-care (01) ==
LOC: HO.HKAM 13:22
PROVIDERS: PCP Student in an Organized Health Care Education/Training Program; Visit Provider Internal Medicine Hypertension Specialist
DX: I12.9 Hypertensive chronic kidney disease with stage 1 through stage 4 chronic kidney disease, or unspecified chronic kidney disease (principal); E11.22 Type 2 diabetes mellitus with diabetic chronic kidney disease; N18.30 Chronic kidney disease, stage 3 unspecified
CPT/HCPCS: 99214

== ENCOUNTER → 2024-06-07 13:22 | Outpatient (BNVA) | payer MEDICARE, MEDICAID, SELFPAY | PROVIDERS: PCP Student in an Organized Health Care Education/Training Program; Visit Provider Internal Medicine Hypertension Specialist | DX: I15.2 Hypertension secondary to endocrine disorders (principal); N18.30 Chronic kidney disease, stage 3 unspecified; Z79.84 Long term (current) use of oral hypoglycemic drugs | CPT/HCPCS: 99212 ==

== ENCOUNTER 2024-06-29 14:56 | Outpatient (AMB) | payer MEDICARE, MEDICAID, SELFPAY ==
--- NOTE | 2024-06-29 14:59 | A.OFFVIS_ITS ---
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 Patient reports his elbow pain came on suddenly and has been present for about 3 months. His pain is located at the lateral side of elbow. Denies numbness or tingling. States pain keeps him up at night. No previous tx. He was seen by his PCP who referred patient to orthopedics. Contract Engineer Name: Jennifer [id number] Allergies No Known Allergies Allergy (Verified 06/29/24 15:06) Medication List - Last Reconciled 06/29/24 by Mau Martel PA-C acetaminophen ER 650 mg PO Q8H PRN albuterol sulfate 90 mcg/actuation (Ventolin HFA) 2 puffs PO Q4H PRN amlodipine 5 mg PO DAILY blood pressure test kit-large As directed blood sugar diagnostic (True Pivot Verio test strips) As directed cyclobenzaprine 5 mg PO BEDTIME PRN empagliflozin (Jardiance) 10 mg PO DAILY fluticasone propion-salmeterol 115-21 mcg/actuation (Advair HFA) 2 puffs inhalation BID lancets (PingMeTouch Delica Lancets) As directed lidocaine-prilocaine 2.5-2.5 % topical DAILY losartan 100 mg PO DAILY metformin 500 mg PO BID omeprazole 20 mg PO DAILY pravastatin 40 mg PO DAILY prednisone 40 mg PO DAILY salmeterol (Serevent Diskus) 1 inh PO BID 1 month semaglutide (Ozempic) mg subcut sertraline 100 mg PO DAILY 90 days HPI 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 He denies injury. He states he has pain over the lateral aspect of the elbow and he has pain with lifting objects. He denies treatment to date. He is retired. [facility] Medical History (Updated 06/29/24 @ 15:12 by Mau Martel PA-C) HTN (hypertension) Diabetes GERD (gastroesophageal reflux disease) Back pain Depression Surgical History H/O colonoscopy History of removal of cyst History of shoulder surgery Family History Father No problems noted. Mother Colon cancer Diabetes Sister Diabetes Social History (Updated 06/29/24 @ 15:06 by Sofya Pacheco Arben) Housing: House Alcohol intake: current Alcohol intake frequency: holidays/special occasions only Alcohol type: beer Patient Tobacco Use Status: Former Tobacco user Tobacco use type: Cigarette Years Smoked: 20 +/- e-Cigarette/Vaping Use: Never Used Second Hand Smoke Exposure: No service: No Current occupational status: retired Current occupation: right hand dominant Current occupational exposures/hazards: No Cognitive needs: No Hearing needs: No Vision needs: No Review of Systems Const All systems reviewed & are unremarkable except as noted in HPI and below Physical Exam Vital Signs: BMI result Body Mass Index 25.1 Const General: cooperative and no acute distress Orientation/consciousness: patient oriented x3 Resp Effort & Inspection: normal respiratory effort and able to speak in complete sentences Cardio Peripheral pulses: Peripheral pulses 2+ throughout Neuro General: patient oriented x3 Extrem Other: Right Elbow skin intact. No erythema or swelling. ROM full without pain. Tenderness over the lateral epicondyle and pain with resisted wrist extension. NVI. Results Reviewed Results Reviewed: xrays of the right elbow are negative for acute fracture or discloations. Assessment & Plan Assessment & Plan (1) Lateral epicondylitis, right elbow: Code(s): M77.11 - Lateral epicondylitis, right elbow Category: Medical Plan: We discussed options which include OT, NSAIDs and injections. He will defer on the injection today and proceed with OT and NSAIDs. If symptoms persist she will contact me for an injection, otherwise, prn. Orders: Orders OT Evaluation and Treatment Today M77.11 - Lateral epicondylitis, right elbow Medications: New ibuprofen 800 mg PO Q8H 30 days PRN 90 tabs 3RF pain Coding Level of Care Code New Pt Level 3 (30657) Complex EM visit Add On G2211 Diagnoses Lateral epicondylitis, right elbow M77.11
[2024-06-29 15:08] VITALS: BMI 25.1
== END 2024-06-29 15:14 | disposition home or self-care (01) ==
PROVIDERS: PCP Student in an Organized Health Care Education/Training Program; Visit Provider Physician Assistant
DX: M77.11 Lateral epicondylitis, right elbow (principal)
CPT/HCPCS: 99203; G2211

== ENCOUNTER → 2024-06-29 14:56 | Outpatient (BNVA) | payer MEDICARE, MEDICAID, SELFPAY | PROVIDERS: PCP Student in an Organized Health Care Education/Training Program; Visit Provider Physician Assistant | DX: M77.11 Lateral epicondylitis, right elbow (principal) | CPT/HCPCS: 99202 ==

== ENCOUNTER 2024-09-15 08:52 | Outpatient (RCR) | payer MEDICARE, MEDICAID, SELFPAY ==
--- NOTE | 2024-07-14 12:42 | MHC.OT.OEV ---
[address] [phone] F: [phone] Occupational Therapy Evaluation Patient Name: Boone Medrano Diagnosis: (R) Lateral epicondylitis Date of Onset: Date of Surgery: Attending Provider: Mau Martel Prescribed Treatment: Follow Up Appointment: History of Current Condition: Patient is 63 y/o male who was referred to OT with a diagnosis of (R) lateral epicondylitis. Patient reported a sharp pain that started about 4 months ago after he was cleaning up his yard. He reports a 6/10 at rest, 9/10 during movement. Denies numbness/tingling. He stated he lives alone and PLOF (I)ADLs/IADLs. He stated he has difficulty sleeping and with pulling/pushing items. Significant Medical History: Precautions/Contraindications: Asthma (uses inhaler) HTN DMT2 Patient Goals: Hand Dominance: Right Observations: QuickDASH Score: 68.2 Prior Level of Function and Occupation Self Care, Employment, Leisure: (I)ADLs/IADls Socializing friends Living Situation, Family and/or Social Support: lives alone Current Level of Function and Occupation Self Care, Employment, Leisure: min (A)IADLs Sleep: Pain with sleeping Driving: Vision: Balance: Pain Assessment Pain Score: 9 Pain Scale Used: Pain Location and Description: 6/10 at rest 9/10 during movement Aggravating Factors: Alleviating Factors: Skin and Soft Tissue Assessment Skin and Soft Tissue: Comments: Nerve assessment Ulnar Nerve: Median Nerve: Radial Nerve: Comments: Sensory Assessment Temperature: Light Touch: Proprioception: Vibration: Comments: Edema Assessment Upper Extremity: Lower Extremity: Comments: Dexterity Assessment Dexterity: Comments: WLF Special Tests Comments: (+)Cozens (+)Chappell AROM(PROM) Strength Cervical Cervical Flexion: Cervical Extension: Cervical Lateral Flexion: Cervical Rotation: Comments: Shoulder Flexion: Extension: Abduction: Internal Rotation: External Rotation: Comments: Shoulder flexion 165* history of (B)shoulder surgery Flexion: Extension: Abduction: Internal Rotation: External Rotation: Comments: 4/5 Elbow Flexion: Extension: Pronation: Supination: Comments: WFL Flexion: Extension: Pronation: Supination: Comments: 4/5 Wrist Flexion: 65 Extension: 55 Ulnar Deviation: 13 Radial Deviation: 10 Comments: Flexion: Extension: Ulnar Deviation: Radial Deviation: Comments: Thumb Thumb CMC Flexion: Thumb MCP Flexion: Thumb IP Flexion: Radial Abduction: Palmar Abduction: Rusk (Kapandji 0-10): Comments: Digits Index MCP: PIP: DIP: Long MCP: PIP: DIP: Ring MCP: PIP: DIP: Small MCP: PIP: DIP: Comments: WFL Gross Grasp: 31lbs. (R); 95lbs. (L) Lateral Pinch: 5 Two-Point Pinch: 0 Three-Jaw Imer: 3 Comments: Patient Education Primary Language: Supervisor Locomotive Required: Yes Current Knowledge: Teaching Method: Education Needs Identified on Evaluation: How did patient/family demonstrate learning? Barriers to Learning: Readiness for Learning: Who was educated? Comments: Plan of Care Assessment: Based on initial evaluation patient presents with pain, impaired strength and impaired ROM. Provocative Testing (+)Cozen's test and Mill's test. Quick DASH= 68.2 indicating patient's perceived impairment of UE. Due to the documented impairments it is recommended that patient received skilled OT in order for patient to achieve his PLOF. Thank you for your referral. 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 Patient will be (I) with activity modification/joint protection techniques LTG Duration: 4 weeks Fdc Goals: Patient will report 0/10 pain Patient will have wrist ROM WFL Patient will be (I) with HEP Frequency and Duration: The patient will be seen 2x a week for 4 weeks Treatment Plan: Therapeutic Exercise Therapeutic Activity Home Exercise Program Splinting Patient Education Edema Control ADL Training Ultrasound NMES Iontophoresis Paraffin Fluidotherapy MHP Cold Packs Joint Mobilization Soft Tissue Mobilization Kinesiotaping Other (see comments) skilled OT eval and treat Electronically Signed By: CRYS Buck/Regla, CLT Reviewed/agree with student documentation: Therapist: Please sign and return to therapist, Thank you for your referral.
--- NOTE | 2024-09-18 09:29 | MHC.OT.DC ---
[address] [phone] F: [phone] Occupational Therapy Discharge Note Patient Name: Boone Medrano Provider: Mau Martel Diagnosis: (R) Lateral epicondylitis Date of Surgery: Date of Evaluation: 07/13/24 Date of Discharge: Treatments to Date: 11 Cancellations to Date: No Shows to Date: Discharge Status: Achieved Goals Improved Function Independent with HEP Discharge Summary: Patient is discharged from skilled OT services as patient has achieved all of his goals and is pain free. Thank you for your referral, patient was a pleasure to work with. Electronically Signed By: CRYS Buck/Regla, CLT Reviewed/agree with student documentation: Therapist: Please Sign and return to therapist, thank you for your referral.
== END 2024-09-18 09:30 | disposition home or self-care (01) ==
LOC: HO.OT 08:52
PROVIDERS: PCP Student in an Organized Health Care Education/Training Program; Visit Provider Physician Assistant
DX: M77.11 Lateral epicondylitis, right elbow (principal)
CPT/HCPCS: 97035; 97110; 97140; 97165

== ENCOUNTER 2024-10-18 09:11 | Outpatient (REF) | payer MEDICARE, MEDICAID, SELFPAY ==
--- OUTSIDE RECORDS SUMMARY | 2024-10-18 10:05 | XMS_ITS | Encounter Summary ---
Author Organization [employer] Address [address] [place] [address] 7t [place] [address] Care Team Providers Care Fire Extinguisher Mechanic Name Role Phone Shakira Nichols MD Primary Care Pro vider Reason for Visit * Reason Comments Med Refill Encounter Details Date Type Department Care Team ([facility] st Contact Info) Description 10/12/2023 Refill [facility] MEDICINE [address] [place], [place] [phone] Sahkira Nichols MD [address] [place] [address] Social History Tobacco Use Types Packs/Day Years Used Date Smoking Tobacco: Never Passive Smoke Exposure: Never Smokeless Tobacco: Never Comments:Stared 20 y of age until 40 y of age --stopped 20 y ago ,used to smoke 1 PQT a day Alcohol Use Standard Drinks/Week Comments Yes 0 (1 standard drink = 0.6 oz pur e alcohol) social Depression Answer Date Recorded Patient Health Questionnaire-9 Score 6 04/21/2023 Housing Stability Answer Date Recorded What is your housing situation today? I have devijose negrete 04/26/[address] you li ve. Do you have problems with any of the following? Pests such as bugs, ants, or mice 04/26/2023 Food Insecurity Answer Date Recorded Within the past 12 months, y ou worried that your food would run out before you got money to buy more: Never True 05/13/2023 Within the past 12 months,th e food you bought just didn't last and you didn't have enough money to get more: Never True Transportation Answer Date Recorded In the past 12 months, has l ack of transportation kept you from medical appts, meetings, work or from getting things needed for daily living? No 05/13/2023 Utilities Answer Date Recorded In the past 12 months, has t he electric, gas, oil or water company threatened to shut off services in your home? No 05/13/2023 Depression Answer Date Recorded Patient Health Questionnaire-2 Score 2 04/21/2023 Sex and Gender Information Value Date Recorded Sex Assigned at Male 05/18/2022 10:39 AM EDT Legal Sex Male 10:39 AM EDT Gender Identity Male 05/18/2022 10:39 AM EDT Sexual Orientation Straight 04/21/2023 9: 45 AM EDT documented as of this encounter Plan of Treatment Upcoming Encounters Date Type Department Care Team (Late st Contact Info) Description 10/25/2024 9:00 AM EDT Office Visit [facility] MEDICINE [address] [place] [address] Shakira Nichols MD [address] [place] [address] 02/05/2025 8:00 AM EDT Office Visit [facility] ADULT DENTAL [address] [place] [address] LicoTameka [address] [place] [address] documented as of this encounter Visit Diagnoses Not on filedocumented in this encounter Additional Health Concerns Assessment Noted Time PHQ-9 Depression Total Score: 6 04/21/20 9:40 AM EDT documented as of this encounter Care Teams Fire Extinguisher Mechanic Relationship Specialty Start Date End Date Shakira Nichols MD [address] [place] [phone] PCP - General Internal Medicine 03/24/23 documented as of this encounter
--- OUTSIDE RECORDS SUMMARY | 2024-10-18 10:05 | XMS_ITS | Encounter Summary ---
Author Organization [employer] Address [address] [place] [address] 7t [place] [address] Care Team Providers Care Fishing Captain Name Role Phone Shakira Nichols MD Primary Care Pro vider Reason for Visit * Reason Comments Med Change Request Encounter Details Date Type Department Care Team ([facility] Contact Info) Description 07/09/2023 Refill [facility] MEDICINE 230 [place], [place] [phone] Shakira Nichols MD 230 [place] [address] Social History Tobacco Use Types Packs/Day Years [...] Description 10/25/2024 9:00 AM EDT Office Visit [facility] MEDICINE 230 [place] [address] Shakira Nichols MD 230 [place] [address] 02/05/2025 8:00 AM EDT Office Visit [facility] ADULT DENTAL [address] [place] [address] LicoTameka [address] [place] [address] documented as of this encounter Visit Diagnoses Not on filedocumented in this encounter Additional Health Concerns Assessment Noted Time PHQ-9 Depression Total Score: 6 04/21/20 9:40 AM EDT documented as of this encounter Care Teams Fishing Captain Relationship Specialty Start Date End Date Shakira Nichols MD [address] [place] [phone] PCP - General Internal Medicine 03/24/23 documented as of this encounter
--- OUTSIDE RECORDS SUMMARY | 2024-10-18 10:05 | XMS_ITS | Encounter Summary ---
Author Organization [employer] Address [address] 7t [place] [address] Care Team Providers Care Sterilisation Technician Name Role Phone Shakira Nichols MD Primary Care Pro vider Encounter Details Date Type Department Care Team (Late st Contact Info) Description 07/28/2023 Abstract [facility] ADULT DENTAL [address] [place] [address] Jose L Malave, BRENDON [address] [place] [address] Social History Tobacco Use Types Packs/Day Years [...] is your housing situation today? I have devi negrete 04/26/[address] you [...] Description 10/25/2024 9:00 AM EDT Office Visit [facility] MEDICINE 230 [place] [address] Shakira Nichols MD [address] [place] [address] 02/05/2025 8:00 AM EDT Office Visit [facility] ADULT DENTAL 230 [place] [address] Tameka Barfield 230 [place] [address] documented as of this encounter Visit Diagnoses Not on filedocumented in this encounter Additional Health Concerns Assessment Noted Time PHQ-9 Depression Total Score: 6 04/21/20 9:40 AM EDT documented as of this encounter Care Teams Sterilisation Technician Relationship Specialty Start Date End Date Shakira Nichols MD [address] [place] [phone] PCP - General Internal Medicine 03/24/23 documented as of this encounter
--- OUTSIDE RECORDS SUMMARY | 2024-10-18 10:05 | XMS_ITS | Encounter Summary ---
Author Organization [employer] Address [address] [facility] 7t [place] [address] Care Team Providers Care Occupational Psychologist Name Role Phone Shakira Nichols MD Primary Care Pro vider Reason for Visit * Reason Comments Med Refill Encounter Details Date Type Department Care Team ([facility] st Contact Info) Description 02/06/2024 Refill [facility] MED & PEDS [address] [place], [place] [phone] Shakira Nichols MD 230 [place] [address] Social History Tobacco Use Types Packs/Day Years [...] Answer Date Recorded Patient Health Questionnaire-9 Score 19 01/18/2024 Patient Health Questionnaire-9 Score 19 01/18/2024 Last PHQ-9: Questionnaire Data Not on file 0 01/18/2024 Housing Stability Answer Date Recorded What is [...] Answer Date Recorded Patient Health Questionnaire-2 Score 5 01/18/2024 Sex and Gender Information Value Date Recorded Sex Assigned at Male 05/18/2022 10:39 AM EDT Legal Sex Male 10:39 AM EDT Gender Identity Male 05/18/2022 10:39 AM EDT Sexual Orientation Straight 04/21/2023 9: 45 AM EDT documented as of this encounter Plan of Treatment Upcoming Encounters Date Type Department Care Team (Late st Contact Info) Description 10/25/2024 9:00 AM EDT Office Visit [facility] MEDICINE 230 [place] [address] Shakira Nichols MD 230 [place] [address] 02/05/2025 8:00 AM EDT Office Visit [facility] ADULT DENTAL [address] [place] [address] Lico, Tameka [address] [place] [address] documented as of this encounter Visit Diagnoses Not on filedocumented in this encounter Additional Health Concerns Assessment Noted Time PHQ-9 Depression Total Score: 19 024 10:06 AM EDT documented as of this encounter Care Teams Occupational Psychologist Relationship Specialty Start Date End Date Shakira Nichols MD [address] [place] [phone] PCP - General Internal Medicine 03/24/23 documented as of this encounter
--- OUTSIDE RECORDS SUMMARY | 2024-10-18 10:05 | XMS_ITS | Encounter Summary ---
Author Organization [employer] Address [address] 7t [place] [address] Care Team Providers Care Veterinary Technology Instructor Name Role Phone Shakira Nichols MD Primary Care Pro vider Reason for Visit * Reason Comments Med Refill Encounter Details Date Type Department Care Team ([facility] st Contact Info) Description 11/29/2023 Refill [facility] PEDIATRICS 230 [place], [place] [phone] Raiza Walker MD 230 [place] [address] Social History Tobacco Use Types Packs/Day Years [...] 9:00 AM EDT Office Visit [facility] MEDICINE [address] [place] [address] Shakria Nichols MD 230 [place] [address] 02/05/2025 8:00 AM EDT Office Visit [facility] ADULT DENTAL [address] [place] [address] LicoTameka [address] [place] [address] documented as of this encounter Visit Diagnoses Not on filedocumented in this encounter Additional Health Concerns Assessment Noted Time PHQ-9 Depression Total Score: 6 04/21/20 9:40 AM EDT documented as of this encounter Care Teams Veterinary Technology Instructor Relationship Specialty Start Date End Date Shakira Nichols MD [address] [place] [phone] PCP - General Internal Medicine 03/24/23 documented as of this encounter
--- OUTSIDE RECORDS SUMMARY | 2024-10-18 10:05 | XMS_ITS | Encounter Summary ---
Author Organization [employer] [facility] Address [address] [place] [address] 7t [place] [address] Care Team Providers Care Plate And Weld Inspector Name Role Phone Shakira Nichols MD Primary Care Pro vider Reason for Visit * Reason Comments Med Refill Encounter Details Date Type Department Care Team ([facility] st Contact Info) Description 12/14/2023 Refill [facility] MEDICINE 230 [place], [place] [phone] Shakira Nichols MD 230 [place] [address] Chronic low back pain without sciatica, unspecified back pain laterality Social History Tobacco Use Types Packs/Day Years [...] your housing situation today? I have devi penelope 04/26/[address] you li [...] 9:00 AM EDT Office Visit [facility] MEDICINE [address] [place] [address] Shakira Nichols MD [address] [place] [address] 02/05/2025 8:00 AM EDT Office Visit [facility] ADULT DENTAL [address] [place] [address] Lico, Tameka [address] [place] [address] documented as of this encounter Visit Diagnoses Diagnosis Chronic low back pain without sciatica, unspecified back pain laterality documented in this encounter Additional Health Concerns Assessment Noted Time PHQ-9 Depression Total Score: 6 04/21/20 9:40 AM EDT documented as of this encounter Care Teams Plate And Weld Inspector Relationship Specialty Start Date End Date Shakira Nichols MD [address] [place] [address] PCP - General Internal Medicine 03/24/23 documented as of this encounter
--- OUTSIDE RECORDS SUMMARY | 2024-10-18 10:05 | XMS_ITS | Encounter Summary ---
Author Organization [employer] Address [address] [place] [address] 7t [place] [address] Care Team Providers Care Park Guide Name Role Phone Shakira Nichols MD Primary Care Pro vider Reason for Visit * Reason Comments Med Refill Encounter Details Date Type Department Care Team ([facility] st Contact Info) Description 10/27/2023 Refill [facility] MEDICINE 230 [place], [place] [phone] Shakira Nichols MD 230 [place] [address] Social History Tobacco Use Types Packs/Day Years [...] Description 10/25/2024 9:00 AM EDT Office Visit [facility] MEDICINE 230 [place] [address] Shakira Nichols MD 230 [place] [address] 02/05/2025 8:00 AM EDT Office Visit [facility] ADULT DENTAL 230 [place] [address] LicoTameka [address] [place] [address] documented as of this encounter Visit Diagnoses Not on filedocumented in this encounter Additional Health Concerns Assessment Noted Time PHQ-9 Depression Total Score: 6 04/21/20 9:40 AM EDT documented as of this encounter Care Teams Park Guide Relationship Specialty Start Date End Date Shakira Nichols MD [address] [place] [phone] PCP - General Internal Medicine 03/24/23 documented as of this encounter
--- OUTSIDE RECORDS SUMMARY | 2024-10-18 10:05 | XMS_ITS | Encounter Summary ---
Author Organization [employer] Address [address] [place] [address] 7t [place] [address] Care Team Providers Care Public Health Epidemiologist Name Role Phone Shakira Nichols MD Primary Care Pro vider Reason for Visit * Reason Comments Med Refill Encounter Details Date Type Department Care Team ([facility] st Contact Info) Description 10/18/2023 Refill [facility] MEDICINE 230 [place], [place] [phone] Shakira Nichols MD 230 [place] [address] Social History Tobacco Use Types Packs/Day Years [...] 9:00 AM EDT Office Visit [facility] MEDICINE [address] [place] [address] Shakira Nichols MD 230 [place] [address] 02/05/2025 8:00 AM EDT Office Visit [facility] ADULT DENTAL [address] [place] [address] LicoTameka [address] [place] [address] documented as of this encounter Visit Diagnoses Not on filedocumented in this encounter Additional Health Concerns Assessment Noted Time PHQ-9 Depression Total Score: 6 04/21/20 9:40 AM EDT documented as of this encounter Care Teams Public Health Epidemiologist Relationship Specialty Start Date End Date Shakira Nichols MD [address] [place] [phone] PCP - General Internal Medicine 03/24/23 documented as of this encounter
--- OUTSIDE RECORDS SUMMARY | 2024-10-18 10:05 | XMS_ITS | Encounter Summary ---
Author Organization [employer] Address [address] 7t [place] [address] Care Team Providers Care Payroll Human Resources Assistant Name Role Phone Shakira Nichols MD Primary Care Pro vider Reason for Visit * Reason Comments Med Refill Encounter Details Date Type Department Care Team ([facility] st Contact Info) Description 11/30/2023 Refill [facility] PEDIATRICS 230 [place], [place] [phone] Raiza Walker MD 230 [place] [address] Social History Tobacco Use Types Packs/Day Years [...] Description 10/25/2024 9:00 AM EDT Office Visit [facility] MEDICINE [address] [place] [address] Shakira Nichols MD 230 [place] [address] 02/05/2025 8:00 AM EDT Office Visit [facility] ADULT DENTAL [address] [place] [address] LicoTameka [address] [place] [address] documented as of this encounter Visit Diagnoses Not on filedocumented in this encounter Additional Health Concerns Assessment Noted Time PHQ-9 Depression Total Score: 6 04/21/20 9:40 AM EDT documented as of this encounter Care Teams Payroll Human Resources Assistant Relationship Specialty Start Date End Date Shakira Nichols MD [address] [place] [address] PCP - General Internal Medicine 03/24/23 documented as of this encounter
--- OUTSIDE RECORDS SUMMARY | 2024-10-18 10:05 | XMS_ITS | Encounter Summary ---
Author Organization [employer] Address [address] [place] [address] 7t [place] [address] Care Team Providers Care Fancy Packer Name Role Phone Shakira Nichols MD Primary Care Pro vider Reason for Visit * Reason Comments Med Refill Encounter Details Date Type Department Care Team ([facility] st Contact Info) Description 10/18/2023 Refill [facility] MEDICINE 230 [place], [place] [phone] Shakira Nichols MD 230 [place] [address] Social History Tobacco Use Types Packs/Day Years [...] Description 10/25/2024 9:00 AM EDT Office Visit [facility] MEDICINE 230 [place] [address] Shakira Nichols MD 230 [place] [address] 02/05/2025 8:00 AM EDT Office Visit [facility] ADULT DENTAL 230 [place] [address] LicoTameka [address] [place] [address] documented as of this encounter Visit Diagnoses Not on filedocumented in this encounter Additional Health Concerns Assessment Noted Time PHQ-9 Depression Total Score: 6 04/21/20 9:40 AM EDT documented as of this encounter Care Teams Fancy Packer Relationship Specialty Start Date End Date Shakira Nichols MD [address] [place] [address] PCP - General Internal Medicine 03/24/23 documented as of this encounter
--- OUTSIDE RECORDS SUMMARY | 2024-10-18 10:05 | XMS_ITS | Clinical Summary ---
Author Organization [address] [facility] Address [address] [place] [address] Phone Care Team Providers Care Coding Educator Name Role Phone Gil Suazo DO Primary Care Provider [phone] Allergies No known active allergies Medications ciclopirox (LOPROX) 0.77 % cream Apply topically 2 (two) times a day. Gently massage into affected areas and surrounding skin 30 g 3 5 11/13/19 25 Active clotrimazole (LOTRIMIN) 1 % cream Apply topically 2 (two) times a day. 30 g 3 5 11/13/19 25 Active Encounters Date Type Department Care Team Description 08/14/2024 1:15 PM EST Office Visit Orthopedic Surgery [facility] [address] [facility] [address] [place] [address] Jet Guerrier, DPM Dermatophytosis of nail (Primary Dx); Tinea pedis of both feet; Diabetic mononeuropathy simplex (CMS/HCC) from Last 3 Months Immunizations Name Administration Dates Next Due Moderna SARS-CoV-2 COVID-19, mRNA, LNP-S, preservative free 05/21/2022 Social History Tobacco Use Types Packs/Day Years Used Date Smoking Tobacco: Never Assessed Sex and Gender Information Value Date Recorded Sex Assigned at Not on file Legal Sex Male 5:36 AM EST Gender Identity Not on file Sexual Orientation Not on file Last Filed Vital Signs Vital Sign Reading Time Taken Comments Blood Pressure - - Pulse - - Temperature - - Respiratory Rate - - Oxygen Saturation - - Inhaled Oxygen Concentration - - Weight 78.9 kg (174 lb) 08/14/2024 1:08 PM EST Height 180.3 cm (5' 11 ) 02/09/2024 12:59 PM EDT Body Mass Index 24.27 02/09/2024 12:59 PM EDT Plan of Treatment Upcoming Encounters Date Type Department Care Team (Late st Contact Info) Description 11/13/2024 1:00 PM EDT Office Visit Orth[facility] [place] [address] [phone] Jet Guerrier, DPM [address] [address] Health Maintenance Due Date Last Done Comments Diabetes: Annual Foot Exam 1972 Diabetes: Annual Retina Eye Exam 1972 Colorectal Cancer Screening: Colonoscopy 04/27/2024 Medicare Annual Wellness Visit 04/27/2024 Social Influencers of Health Screening 04/27/2024 Diabetes: Annual Urine Albumin-Creatinine Ratio (uACR) 08/14/2024 Diabetes: Blood Sugar Control Test (HGBA1C) 11/21/2024 05/24/2024 Depression Screening 05/23/2025 05/23/2024 Diabetes: Annual GFR (Glomerular Filtration Rate) 05/24/2025 05/24/2024 Hypertension/CHF/CAD Annual BMP Blood Test 05/24/2025 05/24/2024 Cholesterol Screening (Lipid Panel) 05/24/2029 05/24/2024 DTaP,Tdap,and Td Vaccines (3 - Td or Tdap) 01/14/2033 01/14/2023, 05/08/2016 Zoster Vaccines Completed 01/21/2023, 11/17/2022 Pneumococcal Vaccine: 50+ Years Completed 04/19/2023, 10/08/2014 Pneumococcal Vaccine: Pediatrics (0 to 5 Years) and At-Risk Patients (6 to 64 Years) Completed 04/19/2023, 10/08/2014 RSV Immunization Adult Patients Completed 11/10/2023 Hepatitis B Vaccines Completed 12/09/2023, 06/17/2023, 05/20/2023 COVID-19 Vaccine Completed 05/23/2024, 08/2023, 05/21/2022, Additional history exists Influenza Vaccine Completed 05/23/2024, , 05/15/2020 HIV Screening Completed 05/24/2024 Hepatitis C Screening Completed 05/24/2024 HIB Vaccines Aged Out No longer eligi ble based on patient's age to complete this topic HPV Vaccines Aged Out No longer eligi ble based on patient's age to complete this topic Hepatitis A Vaccines Aged Out No long er eligible based on patient's age to complete this topic IPV Vaccines Aged Out No longer eligi ble based on patient's age to complete this topic MMR Vaccines Aged Out No longer eligi ble based on patient's age to complete this topic Meningococcal ACWY Vaccine Aged Out N o longer eligible based on patient's age to complete this topic Meningococcal B Vacine Aged Out No lo nger eligible based on patient's age to complete this topic RSV Immunization Patients Under 20 months Aged Out No longer eligible based on patient's age to complete this topic Varicella Vaccines Aged Out No longer eligible based on patient's age to complete this topic Insurance [employer] MEDICARE ADVANTAGE MEDICAID - [place] Care Teams Coding Educator Relationship Specialty Start Date End Date Gil Suazo DO [address] [facility] [address] [place] [address] PCP - General Family Medicine 09/16/18
--- OUTSIDE RECORDS SUMMARY | 2024-10-18 10:05 | XMS_ITS | Encounter Summary ---
Author Organization [employer] Address [address] [place] [address] 7t [place] [address] Care Team Providers Care Apple Turner Name Role Phone Shakira Nichols MD Primary Care Pro vider Reason for Visit * Reason Comments Med Change Request Encounter Details Date Type Department Care Team ([facility] Contact Info) Description 09/16/2023 Refill [facility] MEDICINE 230 [place], [place] [phone] Shakira Nichols MD 230 [place] [address] Social History Tobacco Use Types Packs/Day Years [...] AM EDT documented as of this encounter Miscellaneous Notes * Telephone Encounter - Shakira Martinez MD - 09/16/2023 6:19 PM EST Sent new dose today documented in this encounter Plan of Treatment Upcoming Encounters Date Type Department Care Team (Late st Contact Info) Description 10/25/2024 9:00 AM EDT Office Visit [facility] MEDICINE [address] [place] [address] Shakira Nichols MD [address] [place] [address] 02/05/2025 8:00 AM EDT Office Visit [facility] ADULT DENTAL [address] [place] [address] Lico, Tameka [address] [place] [address] documented as of this encounter Visit Diagnoses Not on filedocumented in this encounter Additional Health Concerns Assessment Noted Time PHQ-9 Depression Total Score: 6 04/21/20 9:40 AM EDT documented as of this encounter Care Teams Apple Turner Relationship Specialty Start Date End Date Shakiar Nichols MD [address] [place] [phone] PCP - General Internal Medicine 03/24/23 documented as of this encounter
--- OUTSIDE RECORDS SUMMARY | 2024-10-18 10:06 | XMS_ITS | Encounter Summary ---
Author Organization [employer] Address [address] [place] [address] 7t [place] [address] Care Team Providers Care Oil Rig Roughneck Name Role Phone Shakira Nichols MD Primary Care Pro vider Reason for Visit * Reason Comments Med Refill Encounter Details Date Type Department Care Team ([facility] st Contact Info) Description 10/06/2023 Refill [facility] MEDICINE 230 [place], [place] [phone] Shakira Nichols MD [address] [place] [address] Social History Tobacco Use Types Packs/Day Years [...] Description 10/25/2024 9:00 AM EDT Office Visit [facility] MEDICINE 230 [place] [address] Shakira Nichols MD [address] [place] [address] 02/05/2025 8:00 AM EDT Office Visit [facility] ADULT DENTAL 230 [place] [address] LicoTameka [address] [place] [address] documented as of this encounter Visit Diagnoses Not on filedocumented in this encounter Additional Health Concerns Assessment Noted Time PHQ-9 Depression Total Score: 6 04/21/20 9:40 AM EDT documented as of this encounter Care Teams Oil Rig Roughneck Relationship Specialty Start Date End Date Shakira Nichols MD [address] [place] [address] PCP - General Internal Medicine 03/24/23 documented as of this encounter
--- OUTSIDE RECORDS SUMMARY | 2024-10-18 10:06 | XMS_ITS | Encounter Summary ---
Author Organization [facility] Address [address] [place] [address] Care Team Providers Care Mexican Food Machine Tender Name Role Phone Shakira Nichols MD Primary Care Pro vider Reason for Visit * Reason Comments Med Refill Encounter Details Date Type Department Care Team ([facility] st Contact Info) Description 09/20/2023 Refill [facility] [address] [place], [place] [phone] Flakito Kapadia, DDSuresh [address] [place] [address] Social History Tobacco Use Types Packs/Day Years [...] encounter Miscellaneous Notes * Telephone Encounter - Trent Loyola DMD - 09/20/2023 8:02 AM EST Please follow up with Dr. Kapadia. Thanks documented in this encounter Plan of Treatment Upcoming Encounters Date Type Department Care Team (Late st Contact Info) Description 10/25/2024 9:00 AM EDT Office Visit [facility] [address] [place] [phone] Shakira Nichols MD [address] [place] [phone] 02/05/2025 8:00 AM EDT Office Visit [facility] [address] [place] [address] Lico, Tameka [address] [place] [address] documented as of this encounter Visit Diagnoses Not on filedocumented in this encounter Additional Health Concerns Assessment Noted Time PHQ-9 Depression Total Score: 6 04/21/20 9:40 AM EDT documented as of this encounter Care Teams Mexican Food Machine Tender Relationship Specialty Start Date End Date Shakira Nichols MD [address] [place] [phone] PCP - General Internal Medicine 03/24/23 documented as of this encounter
--- OUTSIDE RECORDS SUMMARY | 2024-10-18 10:06 | XMS_ITS | Clinical Summary ---
Author Organization [employer] Address [address] [facility] 7[address] [place] [address] Care Team Providers Care Transformer Tester Name Role Phone Shakira Nichols MD Primary Care Pro vider Allergies Active Allergy Reactions Criticality Noted Date Comments Dapagliflozin 08/20/2023 Mx urinary symptoms, not well tolerated Medications * This document contains information received from the source organization and may not represent a complete record from that organization. DULoxetine (Cymbalta) [address] capsule Take 30 mg by mouth in the morning. 023 Active Alcohol Sheets (Alcoh-Wipe) sheet Test daily before all meals/snacks and once before bedtime. 100 each 2 023 Active glucose blood (FREESTYLE LITE) test strip Use bid. Dx diabetes 100 each 2 023 Active Blood Glucose Monitoring Suppl (OneTouch Verio) w/Device kit Inject 1 Device under the skin 2 times daily. TEST BLOOD SUGAR TWICE DAILY DIRECTED 1 kit 023 Active Alcohol Swabs (Easy Touch Alcohol Prep Medium) 70 % pads USE DIRECTED 100 each 11 024 Active Bisacodyl EC 5 MG EC tablet TAKE 4 TABLETS BY MOUTH AT NOON THE DAY BEFORE YOUR COLONOSCOPY 023 Active sertraline (Zoloft) 100 MG tablet Take 1 tablet (100 mg) by mouth Once per day. 90 tablet 024 Active Diclofenac Sodium (Voltaren) 1 % gelIndications :Great toe pain, left Apply up to 4x/d to affected joint(s) for pain/swelling 100 g 2 024 Active amLODIPine (Norvasc) 5 MG tablet TAKE 1 TABLET BY MOUTH EVERY DAY 90 tablet 1 024 Active lidocaine-pril ocaine (Emla) 2.5-2.5 % creamIndicatio ns:Right elbow pain Apply topically every 12 (twelve) hours if needed for mild pain. 5 g 2 024 Active clotrimazole (Lotrimin) 1 % cream APPLY TO SKIN AND TOENAILS DAILY FOR 12 WEEKS 024 Active Jardiance 10 MG Take 10 mg by mouth Once per day. 024 Active Advair HFA 115-21 MCG/ACT inhaler INHALE 2 PUFFS BY MOUTH TWICE DAILY EVERY MORNING AND AT BEDTIME 12 g 1 024 Active Ventolin HFA 108 (90 Base) MCG/ACT inhalerIndicat ions:Dyspnea, unspecified,Po st covid-19 condition, unspecified INHALE 2 PUFFS BY MOUTH EVERY 4 HOURS NEEDED FOR WHEEZING OR SHORTNESS OF BREATH 18 g 1 024 Active pravastatin (Pravachol) 40 MG tablet TAKE 1 TABLET BY MOUTH EVERY DAY 90 tablet 024 Active acetaminophen (Tylenol 8 Hour) 650 MG ER tablet TAKE 1 TABLET BY MOUTH EVERY 8 HOURS NEEDED FOR MILD PAIN DO NOT BREAK, CRUSH, DISSOLVE OR CHEW 60 tablet 1 025 Active omeprazole (PriLOSEC) [address] capsule TAKE 1 CAPSULE BY MOUTH EVERY DAY 90 capsule 025 Active Lancets (OneTouch Delica Plus [id number]) misc TEST BLOOD SUGAR TWICE DAILY DIRECTED 100 each 025 Active glucose blood (OneTouch Verio) test strip TEST BLOOD SUGAR TWICE A DAY 100 each 025 2025 Active losartan (Cozaar) 100 MG tablet TAKE 1 TABLET BY MOUTH EVERY DAY 90 tablet 025 Active metFORMIN (Glucophage) 500 MG tablet TAKE 1 TABLET BY MOUTH TWICE DAILY IN THE MORNING AND IN THE EVENING WITH MEALS 60 tablet 3 025 Active semaglutide (Ozempic, 1 MG/DOSE,) 4 MG/3ML solution pen-injector Inject 1 mg under the skin 1 (one) time per week. INJECT 1 MG SUBCUTANEOUSLY ONCE PER WEEK 3 mL 5 025 Active Ozempic, 1 MG/DOSE, 4 MG/3ML solution pen-injector INJECT 1 MG SUBCUTANEOUSLY ONCE PER WEEK 3 mL 5 024 2024 Discontinued(R eorder (will not trigger notification to Pharmacy)) metFORMIN (Glucophage) 500 MG tablet TAKE 1 TABLET BY MOUTH TWICE DAILY IN THE MORNING AND IN THE EVENING WITH MEALS 60 tablet 3 024 2024 Discontinued Active Problems Problem Noted Date Diagnosed Date Ill-fitting dentures 09/08/2024 Great toe pain, left 03/08/2024 Right elbow pain 03/08/2024 CKD (chronic kidney disease) 01/18/2024 Dental caries 12/15/2023 Lumbago 12/07/2023 Dental root caries 09/28/2023 Overweight (BMI 25.0-29.9) 07/10/2023 Partial edentulism 06/21/2023 GERD (gastroesophageal reflux disease) Left hand pain 04/22/2023 Depression, recurrent 04/21/2023 Assessment & Plan (03/14/2024 1:31 PM EDT): During IBH Consult Bo[place] presenting with depressed mood, hopelessness, loss of interests/pleasure , sense of isolation/loneliness , isolating, psychomotor retardation, fatigue/loss of energy, worthlessness, inappropriate/excessive guilt , difficulty concentrating; for a period of 18+ mo, for most or all symptoms in the context of family issues and illness or family illness. Boone is living with depressive symptoms that increase with activation of triggers. Current identified stressors: complicated family dynamic and his medical condition worsening. Boone is currently on medication to treat sxs and reports medication helps him to be stable and manage his depression. Positive support received from his family and close friends. clinician engaged patient with active/reflective listening and provided a safe space to share his emotions and concerns. clinician called [facility] to book appointment for OP individual therapy. Unable to make appointment due to insurance. Pt was giving information for [facility] as they have more Lao speaking therapist which more insurance coverage. Pt states he will utilize the walk-in services with [facility]. clinician will follow-up w pt on referral and MH progress. Asthma 04/21/2023 Hypertension 04/21/2023 Type 2 diabetes mellitus wit hout complication, without long-term current use of insulin 04/21/2023 Health care maintenance 04/21/2023 Encounters Date Type Department Care Team Description 10/13/2024 Patient Outreach [facility] [address] [place] [phone] Shakira Nichols MD Pre-visit Planning (Pre-visit planning - LVM ) 10/12/2024 Telephone [facility] [address] [place] [phone] Shakira Nichols MD Chart prep 10/02/2024 Refill [facility] [address] [place] [address] Shakira Nichols MD 09/25/2024 Telephone [facility] [address] [place] [phone] Shakira Nichols MD Med Refill 09/23/2024 Refill [facility] [address] [place] [phone] Shakira Nichols MD 09/08/2024 8:00 AM EST Office Visit [facility] [address] [place] [address] Flakito Kapadia DDS Ill-fitting dentures (Primary Dx) 09/01/2024 Refill [facility] [address] [place] [phone] Shakira Nichols MD 08/29/2024 Refill [facility] [address] [place] [address] Shakira Nichols MD 08/27/2024 Refill [facility] [address] [place] [address] Shakira Nichols MD 08/04/2024 3:00 PM EST Office Visit [facility] [address] [place] [address] Tameka Barfield Periodontal disease (Primary Dx); Dental caries; Partial edentulism, unspecified edentulism class; Dental calculus 07/23/2024 Refill [facility] [address] [place] [address] Shakira Nichols MD from Last 3 Months Immunizations Name Administration Dates Next Due Hep B, adult 12/09/2023,06/17/2023,05/20/2023 Influenza injectable quadriv alent preservative free 05/15/2020 Influenza, IIV3, injectable 04/19/2023 Influenza, seasonal, injecta ble, preservative free 05/23/2024 Moderna Covid-19 Vaccine 12+ 05/21/2022 Pfizer Covid-19 Vaccine 12+ 05/23/2024,0 07/20/2023,07/22/2021,11/06,10/15/2020 Pfizer Covid-19 Vaccine 12+ Bivalent 05/21/2022 Pneumococcal Conjugate PCV 20 04/19/2023 Pneumococcal Polysaccharide PPSV23 10/08/2014 RSV Bivalent 11/10/2023 Tdap 01/14/2023,05/08/2016 Zoster, Recombinant 01/21/2023,11/17/2022 Family History Medical History Relation Name Comments DM2 Brother DM2 Mother colon ca dxed at her 60s Mother DM2 Sister Relation Name Status Comments Brother Mother Sister Social History Tobacco Use Types Packs/Day Years Used Date Smoking Tobacco: Never Passive Smoke Exposure: Never Smokeless Tobacco: Never Tobacco Cessation:Counseling Given: Not Answered Comments:Started at 20 y of age until 40 y of age --stopped 21 y ago ,used to smoke 1 PQT a day Alcohol Use Standard Drinks/Week Comments Yes 0 (1 standard drink = 0.6 oz pur e alcohol) social Depression Answer Date Recorded Patient Health Questionnaire-9 Score 10 05/23/2024 Patient Health Questionnaire-9 Score 10 05/23/2024 Last PHQ-9: Questionnaire Data Not on file 1 07/23/2023 Housing Stability Answer Date Recorded What is your housing situation today? I have devi negrete 05/16/[address] you li ve. Do you have problems with any of the following? Pests such as bugs, ants, or mice 05/16/2024 Food Insecurity Answer Date Recorded Within the past 12 months, y ou worried that your food would run out before you got money to buy more: Never True 05/16/2024 Within the past 12 months,th e food you bought just didn't last and you didn't have enough money to get more: Never True Transportation Answer Date Recorded In the past 12 months, has l ack of transportation kept you from medical appts, meetings, work or from getting things needed for daily living? No 05/16/2024 Utilities Answer Date Recorded In the past 12 months, has t he electric, gas, oil or water company threatened to shut off services in your home? No 05/16/2024 Depression Answer Date Recorded Patient Health Questionnaire-2 Score 3 05/23/2024 Internet Access Answer Date Recorded Internet Access Q1 Yes 05/16/2024 Internet Access Q2 Not on file 05/16/2024 Sex and Gender Information Value Date Recorded Sex Assigned at Male 05/18/2022 10:39 AM EDT Legal Sex Male 10:39 AM EDT Gender Identity Male 05/18/2022 10:39 AM EDT Sexual Orientation Straight 04/21/2023 9: 45 AM EDT Last Filed Vital Signs Vital Sign Reading Time Taken Comments Blood Pressure 128/74 09/08/2024 8:04 AM EST Pulse 83 05/23/2024 9:29 AM EST Temperature 36.8 ??C (98.2 ??F) 05/23/2024 9:29 AM ES T Respiratory Rate 20 05/23/2024 9:29 AM EST Oxygen Saturation 98% 05/23/2024 9:29 AM EST Inhaled Oxygen Concentration - - Weight 80.4 kg (177 lb 3.2 oz) 05/23/2024 9:29 A M EST Height 180.3 cm (5' 11 ) 05/23/2024 9:29 AM EST Body Mass Index 24.71 05/23/2024 9:29 AM EST Plan of Treatment Upcoming Encounters Date Type Department Care Team (Late st Contact Info) Description 10/25/2024 9:00 AM EDT Office Visit [facility] [address] [place] [phone] Shakira Nichols MD [address] [place] [address] 02/05/2025 8:00 AM EDT Office Visit [facility] [address] [place] [address] Dieter Barfieldaris [address] [place] [address] Health Maintenance Due Date Last Done Comments CT Colonography 1962 FIT DNA/Cologuard 1962 FIT 1962 FOBT 1962 Sigmoidoscopy 1962 Diabetes: Foot Exam 1972 Eye Exam 1972 Alcohol/Substance Use Screening 1974 Dental Oral Exam 12/22/2023 06/21/2023 Dental X-Ray: Bitewings 06/22/2024 06/21/2023 Depression Monitoring (PHQ-9) 11/20/2024 05/23/2024, 05/23/2024 Diabetes: Hemoglobin A1C 11/21/2024 024, 03/08/2024, 12/07/2023, Additional history exists Dental Prophylaxis 02/02/2025 08/04/2024, 07/22/2023 SDOH Screening 05/16/2025 05/16/2024 Depression Screening 05/23/2025 05/23/2024, 05/23/20 Diabetes: Urine Protein Screening 05/24/2025 05/24/2024, 01/18/2024, 04/27/2023 Lipid Panel 05/24/2025 05/24/2024, 0510/2023, 04/23/2023 Tobacco Screening 09/08/2025 09/08/2024 Dental X-Ray: Full Mouth 06/22/2026 06/21/2023 Colonoscopy 11/01/2028 11/02/2023 Colorectal Cancer Screening 11/01/2028 DTaP/Tdap/Td Vaccines (3 - Td or Tdap) 01/14/2033 01/14/2023, 05/08/2016 Zoster Vaccines Completed 01/21/2023, 11/17/2022 Pneumococcal Vaccine: 50+ Years Completed 04/19/2023, 10/08/2014 RSV Patients and Patients Aged 60 years or older Completed 11/10/2023 Hepatitis B Vaccines Completed 12/09/2023, 06/17/2023, 05/20/2023 COVID-19 Vaccine Completed 05/23/2024, 08/2023, 05/21/2022, Additional history exists Influenza Vaccine Completed 05/23/2024, , 05/15/2020 HIV Screening Completed 05/24/2024, 04/23/2023 Hepatitis C Screening Completed 05/24/2024, 023 HIB Vaccines Aged Out No longer eligi [...] patient's age to complete this topic Meningococcal Vaccine Aged Out No irina maya eligible based on patient's age to complete this topic RSV under 20 months Aged Out No longe r eligible based on patient's age to complete this topic Rotavirus Vaccines Aged Out No longer eligible based on patient's age to complete this topic Procedures Procedure Name Priority Date/Time Associated Diagnosis Comments LIMITED ORAL EVALUATION - PROBLEM FOCUSED Routine 09/08/2024 8:00 AM EST ADJUST PARTIAL DENTURE - MAXILLARY Routine 09/08/2024 8:00 AM EST CASE PRESENTATION, DETAILED AND EXTENSIVE TREATMENT PLANNING Routine 08/04/2024 3:00 PM EST Periodontal disease Dental caries Partial edentulism, unspecified edentulism class Dental calculus ORAL HYGIENE INSTRUCTIONS Routine 08/04/2024 3:00 PM EST Periodontal disease Dental caries Partial edentulism, unspecified edentulism class Dental calculus PROPHYLAXIS - ADULT Routine 08/04/2024 3 :00 PM EST Periodontal disease Dental calculus HEPATITIS C AB W/REFL TO HCV RNA, QN, PCR Routine 05/24/2024 9:15 AM EST Annual physical exam HIV 1/2 ANTIGEN/ANTIBODY, FOURTH GENERATION W/RFL Routine 05/24/2024 9:15 AM EST Annual physical exam ALBUMIN, RANDOM URINE W/CREATININE Routine 05/24/2024 9:15 AM EST Annual physical exam HEMOGLOBIN A1C Routine 05/24/2024 9:15 AM EST Annual physical exam LIPID PANEL, STANDARD Routine 05/24/2024 9:15 AM EST Annual physical exam HM COLONOSCOPY Routine 11/02/2023 8:45 AM EDT INTRAORAL - COMPLETE SERIES OF RADIOGRAPHIC IMAGES Routine 06/21/2023 8:00 AM EST Dental caries COMPREHENSIVE ORAL EVALUATION - NEW OR ESTABLISHED PATIENT Routine 06/21/2023 8:00 AM EST Dental caries from Last 3 Months or Most Recently Relevant to Health Maintenance Results * Albumin, Random Urine W/Creatinine (05/24/2024 9:15 AM EST) Creatinine, Urine 123.02 mg/dL [facility] Microalbumin Urine <5.0 mg/L [facility] Microalbum Creatinine Ratio Ur TNP <30 ug/mg cr [facility] Comment:Unable to calculate albumin/creatinine ratio due to lowmicroalbumin or creatinine result. Urine (Urine, Random) 05/24/2024 9:15 AM EST 05/24/2024 11:43 AM EST us Shakira Martinez MD LAB URINE ORDERAB LES Final Result Performing Organization Address [facility]/ZIP Co de Phone Number [facility] [address] [place] [address] [phone] * Hepatitis C Antibody with Reflex to HCV, RNA, Quantitative, Real-Time PCR (05/24/2024 9:15 AM EST) Pathologist [facility] Hepatitis C Antibody Nonreactive Nonreactive [facility] Comment:Antibodies to HCV no t detected; does not exclude early acuteHCV infection. Blood Venous blood specimen / Unknown 05/24/2024 9:15 AM EST 05/24/2024 11:25 AM EST us Shakira Martinez MD LAB BLOOD ORDERAB LES Final Result Performing Organization Address [facility]/ZIP Co de Phone Number [facility] [address] [place] [phone] * HIV-1/2 Antigen and Antibodies, Fourth Generation, with Reflexes (05/24/2024 9:15 AM EST) HIV AB/AG Nonreactive Nonreactive [facility] Comment:HIV-1 p24 Ag and/or HIV-1/HIV-2 Ab not detected.A test result that is nonreactive does not exclude thepossibility of exposure to or infection with HIV-1 and/orHIV-2. Nonreactive results in this assay for individualswith prior exposure to HIV-1 and/or HIV-2 may be due toantigen and antibody levels that are below the limit ofdetection of this assay.The UC CEIN HIV Ag/Ab Combo assay result andsupplemental assay results should be interpreted inconjunction with the patient's clinical presentation,history and other laboratory results. If the results areinconsistent with clinical evidence, additional testing issuggested to confirm the result. Blood Venous blood specimen / Unknown 05/24/2024 9:15 AM EST 05/24/2024 11:25 AM EST us Shakira Martinez MD LAB BLOOD ORDERAB LES Final Result [facility] [address] [place] [phone] * Hemoglobin A1c (05/24/2024 9:15 AM EST) Hemoglobin A1c 5.7 <6.0 % [facility] Comment:Hemoglobin A1C Refer ence Range Adults: 4.8 - 6.0 % Non diabetic: < 6.0 % Goal: < 7.0 %Additional Action Suggested: > 8.0 %Note: Hemoglobin A1c results are invalid for patients with abnormal amounts of HbF. Blood transfusions may impact the HbA1c concentration in the patient sample. Estimated Average Glucose 117 mg/dL [facility] Comment:eAG = Estimated ave rage glucose which is %A1C expressed asaverage glucose, using the formula of the G3L-JplikdzNlblimc Glucose study (ADAG), Diabetes Care, Vol.31,#8,2007 Blood Venous blood specimen / Unknown 05/24/2024 9:15 AM EST 05/24/2024 11:20 AM EST us Shakira Martinez MD LAB BLOOD ORDERAB LES Final Result Performing Organization Address [facility] Co de Phone Number [facility] [address] [place] [phone] * (ABNORMAL) Lipid Panel, Standard (05/24/2024 9:15 AM EST) Triglycerides 97 <150 mg/dL [facility] Comment:Desirable Triglyceri de: less than 150 mg/dLBorderline High Triglyceride 150-199 mg/dLHigh Triglyceride: 200-499 mg/dLVery High Triglyceride: greater than or equal to 5OO mg/dL Cholesterol 174 <200 mg/dL [facility] Comment:Desirable Cholestero l: less than 200 mg/dLBorderline High Cholesterol: 200-239 mg/dLHigh Cholesterol: greater than 239 mg/dL LDL Cholesterol Calculated 110(H) <100 mg/dL [facility] Comment:Desirable LDL: less than 100 mg/dLNear Optimal/Above Optimal LDL: 110- 129 mg/dLBorderline High LDL: 130-159 mg/dLHigh LDL: 160-189 mg/dLVery High LDL: greater than or equal to 190 mg/dL HDL Cholesterol 45 >40 mg/dL [facility] Comment:Desirable HDL: great er than 40 mg/dL Note: This HDL assay may give artificially low results in patients with liver disease. Blood Venous blood specimen / Unknown 05/24/2024 9:15 AM EST 05/24/2024 11:25 AM EST us Shakira Martinez MD LAB BLOOD ORDERAB LES Final Result Performing Organization Address City/[facility] Hospital/ZIP Co de Phone Number [facility] [address] [place] [phone] * Hm Colonoscopy (11/02/2023 8:45 AM EDT) us Historical Provider HEALTH MAINTENANCE Final Result from Last 3 Months or Most Recently Relevant to Health Maintenance Insurance [facility] STANDARD [employer] MEDICARE REPLACEMENT DENTAL-[facility] MEDICAID STAND ADULT DENTAL - [employer] DENTAL PPO Care Teams Transformer Tester Relationship Specialty Start Date End Date Shakira Nichols MD [address] [place] [phone] PCP - General Internal Medicine 03/24/23
--- OUTSIDE RECORDS SUMMARY | 2024-10-18 10:06 | XMS_ITS | Encounter Summary ---
Author Organization [facility] Address [address] [place] [address] [address] [place] [address] Care Team Providers Care Food Service Assistant Name Role Phone Shakira Nichols MD Primary Care Pro vider Reason for Visit * Reason Comments Med Refill Encounter Details Date Type Department Care Team ([facility] st Contact Info) Description 12/09/2023 Refill [facility] [address] [place], [place] [phone] Shakira Nichols MD [address] [place] [address] Dyspnea, unspecified; Post covid-19 condition, unspecified Social History Tobacco Use Types Packs/Day Years [...] Description 10/25/2024 9:00 AM EDT Office Visit [facility] [address] [place] [address] Shakira Nichols MD [address] [place] [phone] 02/05/2025 8:00 AM EDT Office Visit [facility] [address] [place] [address] Lico, Tameka [address] [place] [address] documented as of this encounter Visit Diagnoses Diagnosis Dyspnea, unspecified Post covid-19 condition, unspecified documented in this encounter Additional Health Concerns Assessment Noted Time PHQ-9 Depression Total Score: 6 04/21/20 23 9:40 AM EDT documented as of this encounter Care Teams Food Service Assistant Relationship Specialty Start Date End Date Shakira Nichols MD [address] [place] [phone] PCP - General Internal Medicine 03/24/23 documented as of this encounter
--- OUTSIDE RECORDS SUMMARY | 2024-10-18 10:06 | XMS_ITS | Encounter Summary ---
Author Organization [facility] Address [address] [place] [address] 7 [place] [address] Care Team Providers Care Centrifugal Operator Name Role Phone Shakira Nichols MD Primary Care Pro vider Reason for Visit * Reason Comments Pre-visit Planning Pre-visit planning - LVM Encounter Details Date Type Department Care Team ([facility] st Contact Info) Description 10/13/2024 Patient Outreach [facility] [address] [place] [address] Shakira Nichols MD [address] [place] [address] Pre-visit Planning (Pre-visit planning - LVM ) Social History Tobacco Use Types Packs/Day Years Used Date Smoking Tobacco: Never Passive Smoke Exposure: Never Smokeless Tobacco: Never Comments:Started at 20 y of age until [...] AM EDT documented as of this encounter Progress Notes * Florinda Joshi - 10/13/2024 1:08 PM EDT RADHA Higuera placed outbound call to patient to complete pre-visit planning. No answer at this time. Patient name and were not confirmed. CC left voicemail requesting return call. Direct contact information provided. documented in this encounter Plan of Treatment Upcoming Encounters Date Type Department Care Team (Late st Contact Info) Description 10/25/2024 9:00 AM EDT Office Visit [facility] [address] [place] [address] Shakira Nichols MD [address] [place] [address] 02/05/2025 8:00 AM EDT Office Visit [facility] ADULT DENTAL [address] [place] [address] Tameka Barfield [address] [place] [address] documented as of this encounter Visit Diagnoses Not on filedocumented in this encounter Additional Health Concerns Assessment Noted Time PHQ-9 Depression Total Score: 10 024 9:24 AM EST documented as of this encounter Care Teams Centrifugal Operator Relationship Specialty Start Date End Date Shakira Nichols MD [address] [place] [phone] PCP - General Internal Medicine 03/24/23 documented as of this encounter
--- OUTSIDE RECORDS SUMMARY | 2024-10-18 10:06 | XMS_ITS | Encounter Summary ---
Author Organization [employer] Address [address] 7[address] [place] [address] Care Team Providers Care Career Development Facilitator Name Role Phone Shakira Nichols MD Primary Care Pro vider Encounter Details Date Type Department Care Team (Late st Contact Info) Description 07/06/2024 Orders Only [facility] [address] [place] [address] Provider, MD Refugio Social History Tobacco Use Types Packs/Day Years [...] Description 10/25/2024 9:00 AM EDT Office Visit [facility] [address] [place] [address] Shakira Nichols MD [address] [place] [address] 02/05/2025 8:00 AM EDT Office Visit [facility] ADULT DENTAL [address] [place] [address] Tameka Barfield [address] [place] [address] documented as of this encounter Procedures Procedure Name Priority Date/Time Associated Diagnosis Comments HM COLONOSCOPY Routine 11/02/2023 8:45 AM EDT documented in this encounter Results * Hm Colonoscopy (11/02/2023 8:45 AM EDT) us Historical Provider HEALTH MAINTENANCE Final Result documented in this encounter Visit Diagnoses Not on filedocumented in this encounter Additional Health Concerns Assessment Noted Time PHQ-9 Depression Total Score: 10 024 9:24 AM EST documented as of this encounter Care Teams Career Development Facilitator Relationship Specialty Start Date End Date Shakira Nichols MD [address] [place] [address] PCP - General Internal Medicine 03/24/23 documented as of this encounter
[2024-10-18 11:51] LABS: Anion Gap 11 (12-20); Blood Urea Nitrogen 14 mg/dL (9-16); Calcium 9.3 mg/dL (8.4-10.2); Carbon Dioxide 27 mmol/L (22-29); Chloride 109 mmol/L (96-108); Estimated Glomerular Filt Rate 58; Glucose Random 157 mg/dL (60-115); Potassium 4.1 mmol/L (3.3-5.1); Sodium 143 mmol/L (135-145)
[2024-10-18 12:26] LABS: Creatinine Urine 92.96 mg/dL; Total Protein Urine Random < 7 mg/dL (<12)
== END 2024-10-18 09:12 | disposition home or self-care (01) ==
LOC: HO.HHCL 09:11
PROVIDERS: Visit Provider Internal Medicine Hypertension Specialist
DX: N18.9 Chronic kidney disease, unspecified (principal)
CPT/HCPCS: 36415; 80048; 82570; 84156

== ENCOUNTER 2024-11-01 13:21 | Outpatient (AMB) | payer MEDICARE, MEDICAID, SELFPAY ==
[2024-11-01 13:23] VITALS: BP 122/80; PULSE 91; O2SAT 97; BMI 25.4
--- NOTE | 2024-11-01 13:23 | HO.NEPHOV ---
Vital Signs 11/01/24 13:23 Height 5 ft 11 in Weight 182 lb BMI 25.4 BP 122/80 Blood Pressure Location Lt brachial Position Sitting Pulse 91 Pulse Source Pulse Oximeter Pulse Oximetry (%) 97 Oxygen Delivery Method Room Air Intake Visit Reasons: 5 month fu/ Conf Corporate Real Estate Specialist Required: No Accompanied by: Self / Same As Patient Allergies No Known Allergies Allergy (Verified 11/01/24 13:28) Medication List - Last Reconciled 11/01/24 by Ha Haynes MD acetaminophen ER 650 mg PO Q8H PRN albuterol sulfate 90 mcg/actuation (Ventolin HFA) 2 puffs PO Q4H PRN amlodipine 5 mg PO DAILY blood pressure test kit-large As directed blood sugar diagnostic (Talknote Verio test strips) As directed cyclobenzaprine 5 mg PO BEDTIME PRN empagliflozin (Jardiance) 10 mg PO DAILY fluticasone propion-salmeterol 115-21 mcg/actuation (Advair HFA) 2 puffs inhalation BID ibuprofen 800 mg PO Q8H PRN 30 days lancets (Talknote Delica Lancets) As directed lidocaine-prilocaine 2.5-2.5 % topical DAILY losartan 100 mg PO DAILY metformin 500 mg PO BID omeprazole 20 mg PO DAILY pravastatin 40 mg PO DAILY salmeterol (Serevent Diskus) 1 inh PO BID 1 month semaglutide (Ozempic) 2 mg subcut sertraline 50 mg PO DAILY Do you need a note to return to daycare/school/sports/work: No HPI Comments Details: Bernardo Shoko is a pleasant 63-year-old man with a history of diabetes mellitus for almost 8 years along with hypertension. He has been referred for chronic kidney disease. Up until 05/07/2023 serum creatinine is around 1.2 mg/dL. In June of 2023 creatinine bumped up to 1.6 and for the last 6 months creatinine has been staying around 1.5-1.6 mg/dL. He has been referred for evaluation of chronic kidney disease. Recent urine studies did not reveal any significant proteinuria/microalbuminuria or any hematuria. A renal ultrasonogram which was unremarkable. No obstruction. Renal sizes were acceptable with normal echogenicity. He was on losartan 100/12.5. Recently the HCTZ has been dropped and he is currently on losartan 100 mg a day. He has been monitoring his blood pressure at home. Recent blood pressure readings are excellent. Prior to this systolic blood pressure was in the 140s and 150s. He was on Trulicity. Recently this was changed to Ozempic. He is lost about 35 lb. Today he has no specific complaints like headache nausea or vomiting. No shortness of breath. No edema. No urinary symptoms. He does have chronic low back pain. [facility] Medical History HTN (hypertension) Diabetes GERD (gastroesophageal reflux disease) Back pain Depression Surgical History H/O colonoscopy History of removal of cyst History of shoulder surgery Family History Father No problems noted. Mother Colon cancer Diabetes Sister Diabetes Social History Housing: House Alcohol intake: current Alcohol intake frequency: holidays/special occasions only Alcohol type: beer Patient Tobacco Use Status: Former Tobacco user Tobacco use type: Cigarette Years Smoked: 20 +/- e-Cigarette/Vaping Use: Never Used Second Hand Smoke Exposure: No service: No Current occupational status: retired Current occupation: right hand dominant Current occupational exposures/hazards: No Cognitive needs: No Hearing needs: No Vision needs: No Physical Exam Vital Signs: Last Vital Signs Pulse 91 11/01/24 13:23 BP 122/80 11/01/24 13:23 Pulse Ox 97 11/01/24 13:23 Oxygen Delivery Method Room Air 11/01/24 13:23 BMI result Body Mass Index 25.4 Results Reviewed Nephrology Results: Hgb 15.7 g/dl (14.0-18.0) 05/24/24 WBC 6.0 X10*3/uL (4.8-10.8) 05/24/24 Plt Count 221 X10*3/uL (160-400) 05/24/24 Sodium 143 mmol/L (135-145) 10/18/24 Potassium 4.1 mmol/L (3.3-5.1) 10/18/24 Chloride 109 mmol/L (96-108) H 10/18/24 Carbon Dioxide 27 mmol/L (22-29) 10/18/24 BUN 14 mg/dL (9-16) 10/18/24 Creatinine 1.26 mg/dL (0.5-1.4) 10/18/24 Calcium 9.3 mg/dL (8.4-10.2) 10/18/24 Urine Creatinine 92.96 mg/dL 10/18/24 Assessment & Plan Assessment & Plan (1) CKD (chronic kidney disease): Code(s): N18.9 - Chronic kidney disease, unspecified Category: Medical (2) Hypertension, essential: Code(s): I10 - Essential (primary) hypertension Category: Medical (3) Diabetes type 2, controlled: Code(s): E11.9 - Type 2 diabetes mellitus without complications Category: Medical Qualifiers: Diabetes mellitus complication status: without complication Diabetes mellitus retirement insulin use: without long filler cigar roller machine use Qualified Code(s): E11.9 - Type 2 diabetes mellitus without complications Plan Boone has CKD 3 in the setting of longstanding diabetes mellitus and hypertension. He probably has underlying hypertensive diabetic kidney disease. However he could have sustained acute kidney injury primarily due to hypoperfusion. No evidence of obstruction. No reason to suspect that he has any active glomerulo nephritis or interstitial disease at this time. Goal is to slow the portion of renal disease. Continue to maintain blood pressure less than 130/80. Maintain hemoglobin A1c less than 7%. Agree with losartan for now. He had be a good candidate for SGLT2 inhibitors. In the past he was intolerant to Farxiga. Keep Jardiance. Continue to avoid nephrotoxic agents including NSAIDs. Hypertension Blood pressure is well controlled with the current regimen. Encouraged him to stand low-sodium diet and continue monitoring his blood pressure at home. No changes were made. There has been evidence of anemia secondary hyperparathyroidism at this time and I will continue to monitor as needed. Orders: Orders Creatinine Urine 4 Months Ha Haynes MD N18.9 - Chronic kidney disease, unspecified Basic Metabolic Panel 4 Months Ha Haynes MD N18.9 - Chronic kidney disease, unspecified Total Protein Urine Random 4 Months Ha Haynes MD N18.9 - Chronic kidney disease, unspecified UA and rflx microscopic 4 Months Ha Haynes MD N18.9 - Chronic kidney disease, unspecified Medications: Changed From sertraline 100 mg PO DAILY 90 days 90 tabs 3RF F32.9 - Major depressive disorder, single episode, unspecified To sertraline 50 mg PO DAILY F32.9 - Major depressive disorder, single episode, unspecified Claire Natarajan NP Coding Level of Care Code Est Pt Level 4 (42806) Diagnoses CKD (chronic kidney disease) N18.9 Hypertension, essential I10 Controlled type 2 diabetes mellitus without complication, without long-term current use of insulin E11.9 Diabetes mellitus complication status: without complication Diabetes mellitus long filler cigar roller machine insulin use: without retirement use
--- OUTSIDE RECORDS SUMMARY | 2024-11-01 15:51 | XMS_ITS | Encounter Summary ---
Author Organization [employer] Address [address] [place] [address] 7t [place] [address] Care Team Providers Care Acquisition Editor Name Role Phone Shakira Nichols MD Primary Care Pro vider Reason for Visit * Reason Comments Med Refill Encounter Details Date Type Department Care Team ([facility] st Contact Info) Description 11/01/2024 Refill [facility] [address] [place], [place] [phone] Shakira Nichols MD [address] [place] [address] Right elbow pain Social History Tobacco Use Types Packs/Day Years [...] Answer Date Recorded Patient Health Questionnaire-9 Score 0 10/25/2024 Patient Health Questionnaire-9 Score 0 10/25/2024 Last PHQ-9: Questionnaire Data Not on file 0 10/25/2024 Housing Stability Answer Date Recorded What is [...] Answer Date Recorded Patient Health Questionnaire-2 Score 0 10/25/2024 Internet Access Answer Date Recorded Internet Access [...] Care Team (Late st Contact Info) Description 01/24/2025 9:45 AM EDT Office Visit [facility] [address] [place] [address] Shakira Nichols MD [address] [place] [address] 02/05/2025 8:00 AM EDT Office Visit [facility] ADULT DENTAL [address] [place] [address] Lico, Tameka [address] [place] [address] documented as of this encounter Visit Diagnoses Diagnosis Right elbow pain Pain in joint, upper arm documented in this encounter Additional Health Concerns Assessment Noted Time PHQ-9 Depression Total Score: 0 10/26/19 25 9:14 AM EDT documented as of this encounter Care Teams Acquisition Editor Relationship Specialty Start Date End Date Shakira Nichols MD [address] [place] [address] PCP - General Internal Medicine 03/24/23 documented as of this encounter
--- OUTSIDE RECORDS SUMMARY | 2024-11-01 15:51 | XMS_ITS | Clinical Summary ---
Author Organization [facility] Address [address] [place] [address] Phone Care Team Providers Care Social Worker Delinquency Prevention Name Role Phone Gil Suazo DO Primary Care Provider [phone] Allergies No known active allergies Medications ciclopirox [...] 1:15 PM EST Office Visit Orthopedic [facility] [address] [facility] [address] [place] [address] Jet Guerrier, DPM Dermatophytosis of nail (Primary Dx); Tinea pedis of both feet; Diabetic mononeuropathy simplex ([facility] V24, CMS/HCC V28) from Last 3 Months Immunizations Name Administration [...] PM EDT Office Visit [facility] [place] [address] [id number] Jet Guerrier, DPM [address] [address] Health Maintenance Due Date Last Done Comments [...] age to complete this topic Meningococcal B Vaccine Aged Out No l onger eligible based on patient's age to complete this topic RSV Immunization Patients Under 20 months Aged Out No longer eligible based on patient's age to complete this topic Varicella Vaccines Aged Out No longer eligible based on patient's age to complete this topic Insurance [employer] MEDICARE ADVANTAGE MEDICAID - [place] Care Teams Social Worker Delinquency Prevention Relationship Specialty Start Date End Date Gil Suazo DO [address] [place] [phone] PCP - General Family Medicine 09/16/18
--- OUTSIDE RECORDS SUMMARY | 2024-11-01 15:52 | XMS_ITS | Encounter Summary ---
Author Organization [employer] [facility] Address [address] [place] [address] 7t [place] [address] Care Team Providers Care Charity Fundraiser Name Role Phone Shakira Nichols MD Primary Care Pro vider Reason for Visit * Reason Comments Med Refill Encounter Details Date Type Department Care Team ([facility] st Contact Info) Description 12/09/2023 Refill [facility] [address] [place], [place] [phone] Shakira Nichols MD [address] [place] [address] Dyspnea, unspecified; Post covid-19 condition, unspecified Social [...] Description 01/24/2025 9:45 AM EDT Office Visit [facility] [address] [place] [address] Shakira Nichols MD [address] [place] [address] 02/05/2025 8:00 AM EDT Office Visit [facility] ADULT DENTAL [address] [place] [address] Lico, Tameka [address] [place] [address] documented as of this encounter Visit Diagnoses Diagnosis Dyspnea, unspecified Post covid-19 condition, unspecified documented in this encounter Additional Health Concerns Assessment Noted Time PHQ-9 Depression Total Score: 6 04/21/20 23 9:40 AM EDT documented as of this encounter Care Teams Charity Fundraiser Relationship Specialty Start Date End Date Shakira Nichols MD [address] [place] [phone] PCP - General Internal Medicine 03/24/23 documented as of this encounter
--- OUTSIDE RECORDS SUMMARY | 2024-11-01 15:52 | XMS_ITS | Encounter Summary ---
Author Organization [employer] [facility] Address [address] [place] [address] 7t [place] [address] Care Team Providers Care Behavior Management Specialist Name Role Phone Shakira Nichols MD Primary Care Pro vider Reason for Visit * Reason Comments Med Refill Encounter Details Date Type Department Care Team ([facility] st Contact Info) Description 12/14/2023 Refill [facility] [address] [place], [place] [phone] Shakira Nichols MD [address] [place] [address] Chronic low back pain without sciatica, unspecified [...] Description 01/24/2025 9:45 AM EDT Office Visit [facility] [address] [place] [address] Shakira Nichols MD [address] [place] [address] 02/05/2025 8:00 AM EDT Office Visit [facility] ADULT DENTAL [address] [place] [address] Lico, Tameka [address] [place] [address] documented as of this encounter Visit Diagnoses Diagnosis Chronic low back pain without sciatica, unspecified back pain laterality documented in this encounter Additional Health Concerns Assessment Noted Time PHQ-9 Depression Total Score: 6 04/21/20 9:40 AM EDT documented as of this encounter Care Teams Behavior Management Specialist Relationship Specialty Start Date End Date Shakira Nichols MD [address] [place] [address] PCP - General Internal Medicine 03/24/23 documented as of this encounter
--- OUTSIDE RECORDS SUMMARY | 2024-11-01 15:52 | XMS_ITS | Encounter Summary ---
Author Organization [employer] Address [address] [place] [address] 7t [place] [address] Care Team Providers Care Stained Glass Installer Name Role Phone Shakira Nichols MD Primary Care Pro vider Reason for Visit * Reason Comments Med Refill Encounter Details Date Type Department Care Team ([facility] st Contact Info) Description 10/18/[address] [facility] [address] [place], [place] [phone] Shakira Nichols MD [address] [place] [address] Social History Tobacco Use Types Packs/Day Years [...] Description 01/24/2025 9:45 AM EDT Office Visit [facility] [address] [place] [address] Shakira Nichols MD [address] [place] [address] 02/05/2025 8:00 AM EDT Office Visit [facility] ADULT DENTAL [address] [place] [address] LicoTameka [address] [place] [address] documented as of this encounter Visit Diagnoses Not on filedocumented in this encounter Additional Health Concerns Assessment Noted Time PHQ-9 Depression Total Score: 6 04/21/20 9:40 AM EDT documented as of this encounter Care Teams Stained Glass Installer Relationship Specialty Start Date End Date Shakira Nichols MD [address] [place] [address] PCP - General Internal Medicine 03/24/23 documented as of this encounter
--- OUTSIDE RECORDS SUMMARY | 2024-11-01 15:52 | XMS_ITS | Encounter Summary ---
Author Organization [employer] Address [address] 7[address] [place] [address] Care Team Providers Care Professor Of Religious Studies Name Role Phone Shakira Nichols MD Primary Care Pro vider Reason for Visit * Reason Comments Med Refill Encounter Details Date Type Department Care Team ([facility] st Contact Info) Description 11/29/2023 Refill [facility] [address] [place], [place] [phone] Raiza Walker MD 230 [place] [address] Social History Tobacco Use Types Packs/Day Years [...] Description 01/24/2025 9:45 AM EDT Office Visit [facility] [address] [place] [address] Shakira Nichols MD [address] [place] [address] 02/05/2025 8:00 AM EDT Office Visit [facility] ADULT DENTAL [address] [place] [address] LicoTameka [address] [place] [address] documented as of this encounter Visit Diagnoses Not on filedocumented in this encounter Additional Health Concerns Assessment Noted Time PHQ-9 Depression Total Score: 6 04/21/20 9:40 AM EDT documented as of this encounter Care Teams Professor Of Religious Studies Relationship Specialty Start Date End Date Shakira Nichols MD [address] [place] [phone] PCP - General Internal Medicine 03/24/23 documented as of this encounter
--- OUTSIDE RECORDS SUMMARY | 2024-11-01 15:52 | XMS_ITS | Encounter Summary ---
Author Organization [employer] Address [address] [place] [address] 7t [place] [address] Care Team Providers Care Church Supervisor Name Role Phone Shakira Nichols MD Primary Care Pro vider Reason for Visit * Reason Comments Med Refill Encounter Details Date Type Department Care Team ([facility] st Contact Info) Description 10/06/2023 Refill [facility] [address] [place], [place] [phone] Shakira Nichols MD [address] [place] [address] Social History Tobacco Use Types Packs/Day Years [...] Description 01/24/2025 9:45 AM EDT Office Visit [facility] [address] [place] [address] Shakira Nichols MD [address] [place] [address] 02/05/2025 8:00 AM EDT Office Visit [facility] ADULT DENTAL [address] [place] [address] LicoTameka [address] [place] [address] documented as of this encounter Visit Diagnoses Not on filedocumented in this encounter Additional Health Concerns Assessment Noted Time PHQ-9 Depression Total Score: 6 04/21/20 9:40 AM EDT documented as of this encounter Care Teams Church Supervisor Relationship Specialty Start Date End Date Shakira Nichols MD [address] [place] [address] PCP - General Internal Medicine 03/24/23 documented as of this encounter
--- OUTSIDE RECORDS SUMMARY | 2024-11-01 15:52 | XMS_ITS | Clinical Summary ---
Author Organization [employer] Address [address] [place] [address] Care Team Providers Care Learning And Development Associate Name Role Phone Shakira Nichols MD Primary Care Pro vider Allergies Active Allergy Reactions Criticality Noted Date Comments Dapagliflozin 08/20/2023 Mx urinary symptoms, not well tolerated Medications * This document contains information received from the source organization and may not represent a complete record from that organization. Alcohol Sheets (Alcoh-Wipe) sheet Test daily before [...] THE DAY BEFORE YOUR COLONOSCOPY 023 Active Diclofenac Sodium (Voltaren) 1 % gelIndications :Great toe pain, left Apply up to 4x/d to affected joint(s) for pain/swelling 100 g 2 024 Active lidocaine-pril ocaine (Emla) 2.5-2.5 % creamIndicatio ns:Right elbow pain Apply topically every 12 (twelve) hours if needed for mild pain. 5 g 2 024 Active clotrimazole (Lotrimin) 1 % cream APPLY TO SKIN AND TOENAILS DAILY FOR 12 WEEKS Active Jardiance 10 MG Take 10 mg by mouth Once per day. Active Advair HFA 115-21 MCG/ACT inhaler INHALE 2 PUFFS BY MOUTH TWICE DAILY EVERY MORNING AND AT BEDTIME 12 g 1 Active pravastatin (Pravachol) 40 MG tablet TAKE 1 TABLET BY MOUTH EVERY DAY 90 tablet Active acetaminophen (Tylenol 8 Hour) 650 MG ER tablet TAKE 1 TABLET BY MOUTH EVERY 8 HOURS NEEDED FOR MILD PAIN DO NOT BREAK, CRUSH, DISSOLVE OR CHEW 60 tablet 1 Active omeprazole (PriLOSEC) [address] capsule TAKE 1 CAPSULE BY MOUTH EVERY DAY 90 capsule Active Lancets (Spriouch Delica Plus [id number]) misc TEST BLOOD SUGAR TWICE DAILY DIRECTED 100 each Active glucose blood (WellTouch Verio) test strip TEST BLOOD SUGAR TWICE A DAY 100 each 025 2025 Active losartan (Cozaar) 100 MG tablet TAKE 1 TABLET BY MOUTH EVERY DAY 90 tablet Active metFORMIN (Glucophage) 500 MG tablet TAKE 1 TABLET BY MOUTH TWICE DAILY IN THE MORNING AND IN THE EVENING WITH MEALS 60 tablet 3 Active Ventolin HFA 108 (90 Base) MCG/ACT inhalerIndicat ions:Dyspnea, unspecified,Po st covid-19 condition, unspecified INHALE 2 PUFFS BY MOUTH EVERY 4 HOURS NEEDED FOR WHEEZING OR SHORTNESS OF BREATH 18 g 1 Active sertraline (Zoloft) 50 MG tablet Take 1 tablet (50 mg) by mouth Once per day. 90 tablet 025 2025 Active amLODIPine (Norvasc) 5 MG tablet Take 1 tablet (5 mg) by mouth Once per day. 90 tablet 1 Active Semaglutide, 2 MG/DOSE, (Ozempic, 2 MG/DOSE,) 8 MG/3ML solution pen-injectorIn dications:Type 2 diabetes mellitus without complication, without long-term current use of insulin ([facility]) Inject 0.75 mL (2 mg) under the skin 1 (one) time per week. 3 mL 3 025 Active ketoconazole (NIZOral) 2 % shampoo Apply topically 2 (two) times a week. 120 mL 025 Active DULoxetine (Cymbalta) [address] capsule Take 30 mg by mouth in the morning. 023 2024 Discontinued(O ther) sertraline (Zoloft) 100 MG tablet Take 1 tablet (100 mg) by mouth Once per day. 90 tablet 024 2024 Discontinued(O ther) amLODIPine (Norvasc) 5 MG tablet TAKE 1 TABLET BY MOUTH EVERY DAY 90 tablet 1 024 2024 Discontinued(R eorder (will not trigger notification to Pharmacy)) Ventolin HFA 108 (90 Base) MCG/ACT inhalerIndicat ions:Dyspnea, unspecified,Po st covid-19 condition, unspecified INHALE 2 PUFFS BY MOUTH EVERY 4 HOURS NEEDED FOR WHEEZING OR SHORTNESS OF BREATH 18 g 1 024 2024 Discontinued semaglutide (Ozempic, 1 MG/DOSE,) 4 MG/3ML solution pen-injector Inject 1 mg under the skin 1 (one) time per week. INJECT 1 MG SUBCUTANEOUSLY ONCE PER WEEK 3 mL 5 025 2024 Discontinued Active Problems Problem Noted Date Diagnosed Date Stage 3b chronic kidney disease 10/25/2024 Ill-fitting dentures 09/08/2024 Great toe pain, left [...] share his emotions and concerns. clinician called [facility] / Sathya to book appointment for OP individual therapy. Unable to make appointment due to insurance. Pt was giving information for [facility] as they have more Tuval[place] speaking therapist which more insurance coverage. Pt states he will utilize the walk-in services with [facility]. clinician will follow-up w pt on referral and MH progress. Asthma 04/21/2023 Hypertension 04/21/2023 Type 2 diabetes mellitus wit hout complication, without long-term current use of insulin 04/21/2023 Health care maintenance 04/21/2023 Encounters Date Type Department Care Team Description 11/01/2024 Refill [facility] [address] [facility] [address] Shakira Nichols MD Right elbow pain 10/26/2024 Orders Only [facility] [address] [facility] [address] Shakira Nichols MD 10/26/2024 Telephone [facility] [address] [facility] [place] [address] Shakira Nichols MD Medication Question 10/25/2024 9:00 AM EDT Office Visit [facility] [address] [facility] [place] [address] Shakira Nichols MD Stage 3b chronic kidney disease (CMS/HCC) (Primary Dx); Type 2 diabetes mellitus without complication, without long-term current use of insulin (CMS/HCC); Depression, recurrent (CMS/HCC); Dietary counseling; Exercise counseling; Health care maintenance; Overweight (BMI 25.0-29.9); Hypertension, unspecified type 10/25/2024 Travel 10/19/2024 Refill [facility] [address] [place] [address] Piper Fitch ANP Dyspnea, unspecified; Post covid-19 condition, unspecified 10/13/2024 Patient Outreach [facility] [address] [place] [address] Shakira Nichols MD Pre-visit Planning (Pre-visit planning - LVM ) 10/12/2024 Telephone [facility] [address] [place] [phone] Shakira Nichols MD Chart prep 10/02/2024 Refill [facility] [address] [place] [address] Shakira Nichols MD 09/25/2024 Telephone [facility] [address] [place] [address] Shakira Nichols MD Med Refill 09/23/2024 Refill [facility] [address] [place] [address] Shakira Nichols MD 09/08/2024 8:00 AM EST Office Visit [facility] AD[facility] D[facility] [address] [place] [address] Flakito Kapadia DDS Ill-fitting dentures (Primary Dx) 09/01/2024 Refill [facility] [address] [place] [address] Shakira Nichols MD 08/29/2024 Refill [facility] [address] [place] [address] Shakira Nichols MD 08/27/2024 Refill [facility] [address] [place] [address] Shakira Nichols MD 08/04/2024 3:00 PM EST Office Visit [facility] [address] [place] [address] Tameka Barfield Periodontal disease (Primary Dx); Dental caries; Partial edentulism, unspecified edentulism class; Dental calculus from Last 3 Months Immunizations Name Administration [...] housing situation today? I have devijose negrete 05/16/[address] you [...] Sign Reading Time Taken Comments Blood Pressure 137/88 10/25/2024 9:13 AM EDT Pulse 83 10/25/2024 9:13 AM EDT Temperature 36.1 ??C (97 ??F) 10/25/2024 9:13 AM EDT Respiratory Rate 20 10/25/2024 9:13 AM EDT Oxygen Saturation 98% 10/25/2024 9:13 AM EDT Inhaled Oxygen Concentration - - Weight 82.3 kg (181 lb 6.4 oz) 10/25/2024 9:13 A M EDT Height 180.3 cm (5' 11 ) 10/25/2024 9:13 AM EDT Body Mass Index 25.3 10/25/2024 9:13 AM EDT Plan of Treatment Upcoming Encounters Date Type Department Care Team (Late st Contact Info) Description 01/24/2025 9:45 AM EDT Office Visit [facility] [address] [place] [address] [phone] Shakira Nichols MD [address] [place] [address] 02/05/2025 8:00 AM EDT Office Visit [facility] [address] [place] [address] [phone] [place] [address] Health Maintenance Due Date Last Done Comments CT Colonography 1962 FIT DNA/Cologuard 1962 FIT 1962 FOBT 1962 Sigmoidoscopy 1962 Diabetes: Foot Exam 1972 Eye Exam 1972 Dental Oral Exam 12/22/2023 06/21/2023 Dental X-Ray: Bitewings 06/22/2024 06/21/2023 Dental Prophylaxis 02/02/2025 08/04/2024, 07/22/2023 Diabetes: Hemoglobin A1C 04/26/2025 025, 05/24/2024, 03/08/2024, Additional history exists SDOH Screening 05/16/2025 05/16/2024 Diabetes: Urine Protein Screening 05/24/2025 05/24/2024, 01/18/2024, 04/27/2023 Lipid Panel 05/24/2025 05/24/2024, 0510/2023, 04/23/2023 Alcohol/Substance Use Screening 10/25/2025 10/25/2024 Depression Screening 10/25/2025 10/25/2024, 10/26/19 25 Tobacco Screening 10/25/2025 10/25/2024 Dental X-Ray: Full Mouth 06/22/2026 06/21/2023 Colonoscopy [...] Procedure Name Priority Date/Time Associated Diagnosis Comments POCT GLYCATED HEMOGLOBIN, TOTAL Routine 10/25/2024 9:15 AM EDT Type 2 diabetes mellitus without complication, without long-term current use of insulin ([facility]) POCT GLUCOSE Routine 10/25/2024 9:15 AM EDT Type 2 diabetes mellitus without complication, without long-term current use of insulin ([facility]) LIMITED ORAL EVALUATION - PROBLEM FOCUSED Routine [...] Recently Relevant to Health Maintenance Results * (ABNORMAL) POCT HGB A1C (10/25/2024 9:15 AM EDT) Hemoglobin A1C 6.7(A) 4.0 - 6.0 % QC Media Lot # [id number] Lot# Expiration Date [id number] Blood 10/25/2024 9:15 AM EDT Shakira Martinez MD POINT OF CARE CHRISTY T ENTER/EDIT ORDERABLES Final Result * POCT Glucose (10/25/2024 9:15 AM EDT) Glucose Blood, POC 168 60 - 200 mg/dL QC Media Lot # [id number] Lot# Expiration Date [id number] Blood Capillary blood specimen / Unknown 10/25/2024 9:15 AM EDT Shakira Martinez MD POINT OF CARE CHRISTY T ENTER/EDIT ORDERABLES Final Result * Albumin, Random Urine W/Creatinine (05/24/2024 9:15 AM EST) Creatinine, Urine 123.02 mg/dL [facility] Microalbumin Urine <5.0 mg/L [facility] Microalbum Creatinine Ratio Ur TNP <30 ug/mg cr [facility] Comment:Unable to calculate albumin/creatinine ratio due to lowmicroalbumin or creatinine result. Urine (Urine, Random) 05/24/2024 9:15 AM EST 05/24/2024 11:43 AM EST Shakira Martinez MD LAB URINE ORDERAB LES Final Result Performing Organization Address [facility]/ZIP Co de Phone Number [facility] [address] [place] [address] [phone] * Hepatitis C Antibody with Reflex to HCV, RNA, Quantitative, Real-Time PCR (05/24/2024 9:15 AM EST) Hepatitis C Antibody Nonreactive Nonreactive [facility] Comment:Antibodies to HCV no t detected; does not exclude early acuteHCV infection. Blood Venous blood specimen / Unknown 05/24/2024 9:15 AM EST 05/24/2024 11:25 AM EST Shakira Martinez MD LAB BLOOD ORDERAB LES Final Result Performing Organization Address City/[facility] Co de Phone Number [facility] [address] [place] [phone] * HIV-1/2 Antigen and Antibodies, Fourth Generation, with Reflexes (05/24/2024 9:15 AM EST) HIV AB/AG Nonreactive Nonreactive [facility] Comment:HIV-1 p24 Ag and/or HIV-1/HIV-2 Ab not detected.A test result that is nonreactive does not exclude thepossibility of exposure to or infection with HIV-1 and/orHIV-2. Nonreactive results in this assay for individualswith prior exposure to HIV-1 and/or HIV-2 may be due toantigen and antibody levels that are below the limit ofdetection of this assay.The [employer] HIV Ag/Ab Combo assay result andsupplemental assay results should be interpreted inconjunction with the patient's clinical presentation,history and other laboratory results. If the results areinconsistent with clinical evidence, additional testing issuggested to confirm the result. Blood Venous blood specimen / Unknown 05/24/2024 9:15 AM EST 05/24/2024 11:25 AM EST us Shakira Martinez MD LAB BLOOD ORDERAB LES Final Result Performing Organization Address City/[facility]/ZIP Co de Phone Number [facility] [address] [place] [phone] * (ABNORMAL) Lipid Panel, Standard (05/24/2024 9:15 AM EST) Triglycerides 97 <150 mg/dL [facility] Comment:Desirable Triglyceri de: less than 150 mg/dLBorderline High Triglyceride 150-199 mg/dLHigh Triglyceride: 200-499 mg/dLVery High Triglyceride: greater than or equal to 5OO mg/dL Cholesterol 174 <200 mg/dL [facility] Comment:Desirable Cholestero l: less than 200 mg/dLBorderline High Cholesterol: 200-239 mg/dLHigh Cholesterol: greater than 239 mg/dL LDL Cholesterol Calculated 110(H) <100 mg/dL [facility] Comment:Desirable LDL: less than 100 mg/dLNear Optimal/Above Optimal LDL: 110- 129 mg/dLBorderline High LDL: 130-159 mg/dLHigh LDL: 160-189 mg/dLVery High LDL: greater than or equal to 190 mg/dL HDL Cholesterol 45 >40 mg/dL [facility] Comment:Desirable HDL: great er than 40 mg/dL Note: This HDL assay may give artificially low results in patients with liver disease. Blood Venous blood specimen / Unknown 05/24/2024 9:15 AM EST 05/24/2024 11:25 AM EST us Shakira Martinez MD LAB BLOOD ORDERAB LES Final Result Performing Organization Address City/[facility]/ZIP Co de Phone Number [facility] [address] [place] [phone] * Hm Colonoscopy (11/02/2023 8:45 AM EDT) us Historical Provider HEALTH MAINTENANCE Final Result from Last 3 Months or Most Recently Relevant to Health Maintenance Insurance [facility] STANDARD [employer] MEDICARE REPLACEMENT DENTAL-[facility] MEDICAID STAND ADULT DENTAL - [employer]ET[employer] DENTAL PPO Care Teams Learning And Development Associate Relationship Specialty Start Date End Date Shakira Nichols MD [address] [place] [phone] PCP - General Internal Medicine 03/24/23
--- OUTSIDE RECORDS SUMMARY | 2024-11-01 15:52 | XMS_ITS | Encounter Summary ---
Author Organization [employer] Address [address] [place] [address] Care Team Providers Care Chlorine Operator Name Role Phone Shakira Nichols MD Primary Care Pro vider Encounter Details Date Type Department Care Team (Late st Contact Info) Description 07/06/2024 Orders Only [facility] [address] [place] [address] Provider, MD Refugio Social History Tobacco Use [...] 9:45 AM EDT Office Visit [facility] [address] [place] [phone] Shakira Nichols MD [address] [place] [address] 02/05/2025 8:00 AM EDT Office Visit [facility] ADULT DENT[facility] [address] [place] [address] Dieter Barfieldaris [address] [place] [address] documented as of this encounter Procedures Procedure [...] documented as of this encounter Care Teams Chlorine Operator Relationship Specialty Start Date End Date Shakira Nichols MD [address] [place] [phone] PCP - General Internal Medicine 03/24/23 documented as of this encounter
--- OUTSIDE RECORDS SUMMARY | 2024-11-01 15:52 | XMS_ITS | Encounter Summary ---
Author Organization [employer] Address [address] [place] [address] Care Team Providers Care Watch Inspector Name Role Phone Shaikra Nichols MD Primary Care Pro vider Reason for Visit * Reason Comments Med Refill Encounter Details Date Type Department Care Team ([facility] st Contact Info) Description 11/30/2023 Refill [facility] [address] [place], [place] [phone] Raiza Walker MD [address] [place] [address] Social History Tobacco Use Types Packs/Day Years [...] Description 01/24/2025 9:45 AM EDT Office Visit [facility] [address] [place] [address] Shakira Nichols MD [address] [place] [address] 02/05/2025 8:00 AM EDT Office Visit [facility] ADULT DENTAL [address] [place] [address] LicoTameka [address] [place] [address] documented as of this encounter Visit Diagnoses Not on filedocumented in this encounter Additional Health Concerns Assessment Noted Time PHQ-9 Depression Total Score: 6 04/21/20 9:40 AM EDT documented as of this encounter Care Teams Watch Inspector Relationship Specialty Start Date End Date Shakira Nichols MD [address] [place] [phone] PCP - General Internal Medicine 03/24/23 documented as of this encounter
--- OUTSIDE RECORDS SUMMARY | 2024-11-01 15:52 | XMS_ITS | Encounter Summary ---
Author Organization [employer] Address [address] [place] [address] 7t [place] [address] Care Team Providers Care Client Service Representative Name Role Phone Shakira Nichols MD Primary Care Pro vider Reason for Visit * Reason Comments Med Refill Encounter Details Date Type Department Care Team ([facility] st Contact Info) Description 10/12/[address] [facility] [address] [place], [place] [phone] Shakira Nichols MD [address] [place] [address] Social History Tobacco Use Types Packs/Day Years [...] Description 01/24/2025 9:45 AM EDT Office Visit [facility] [address] [place] [address] Shakira Nichols MD [address] [place] [address] 02/05/2025 8:00 AM EDT Office Visit [facility] ADULT DENTAL [address] [place] [address] Lico[facility]ameka [address] [place] [address] documented as of this encounter Visit Diagnoses Not on filedocumented in this encounter Additional Health Concerns Assessment Noted Time PHQ-9 Depression Total Score: 6 04/21/20 9:40 AM EDT documented as of this encounter Care Teams Client Service Representative Relationship Specialty Start Date End Date Shakira Nichols MD [address] [place] [address] PCP - General Internal Medicine 03/24/23 documented as of this encounter
--- OUTSIDE RECORDS SUMMARY | 2024-11-01 15:52 | XMS_ITS | Encounter Summary ---
Author Organization [employer] Address [address] [place] [address] [address]t [place] [address] Care Team Providers Care Wood Floor Refinisher Name Role Phone Shakira Nichols MD Primary Care Pro vider Reason for Visit * Reason Comments Med Change Request Encounter Details Date Type Department Care Team ([facility] Contact Info) Description 09/16/2023 Refill [facility] [address] [place], [place] [phone] Shakira Nichols MD [address] [place] [address] Social History Tobacco Use Types Packs/Day Years [...] Description 01/24/2025 9:45 AM EDT Office Visit [facility] [address] [place] [phone] Shakira Nichols MD [address] [place] [address] 02/05/2025 8:00 AM EDT Office Visit [facility] ADULT DENTAL [address] [place] [address] Lico, Tameka [address] [place] [address] documented as of this encounter Visit Diagnoses Not on filedocumented in this encounter Additional Health Concerns Assessment Noted Time PHQ-9 Depression Total Score: 6 04/21/20 9:40 AM EDT documented as of this encounter Care Teams Wood Floor Refinisher Relationship Specialty Start Date End Date Shakira Nichols MD [address] [place] [phone] PCP - General Internal Medicine 03/24/23 documented as of this encounter
--- OUTSIDE RECORDS SUMMARY | 2024-11-01 15:52 | XMS_ITS | Encounter Summary ---
Author Organization [employer] Address [address] [place] [address] 7t [place] [address] Care Team Providers Care Special Order Jeweler Name Role Phone Shakira Nichols MD Primary Care Pro vider Reason for Visit * Reason Comments Med Change Request Encounter Details Date Type Department Care Team ([facility] Contact Info) Description 07/09/2023 Refill [facility] [address] [place], [place] [phone] Shakira Nichols MD [address] [place] [address] Social History Tobacco Use Types Packs/Day Years [...] Description 01/24/2025 9:45 AM EDT Office Visit [facility] [address] [place] [address] Shakira Nichols MD [address] [place] [address] 02/05/2025 8:00 AM EDT Office Visit [facility] ADULT DENTAL [address] [place] [address] [facility]ameka [address] [place] [address] documented as of this encounter Visit Diagnoses Not on filedocumented in this encounter Additional Health Concerns Assessment Noted Time PHQ-9 Depression Total Score: 6 04/21/20 9:40 AM EDT documented as of this encounter Care Teams Special Order Jeweler Relationship Specialty Start Date End Date Shakira Nichols MD [address] [place] [address] PCP - General Internal Medicine 03/24/23 documented as of this encounter
--- OUTSIDE RECORDS SUMMARY | 2024-11-01 15:52 | XMS_ITS | Encounter Summary ---
Author Organization [employer] Address [address] [place] [address] Care Team Providers Care Pound Keeper Name Role Phone Shakira Nichols MD Primary Care Pro vider Encounter Details Date Type Department Care Team (Late st Contact Info) Description 07/28/[address] [facility] ADULT DENTAL [address] [place] [address] Jose L Malave, BRENDON [address] [place] [address] Social History Tobacco Use Types Packs/Day Years [...] Description 01/24/2025 9:45 AM EDT Office Visit [facility] [address] [place] [address] Shakira Nichols MD [address] [place] [address] 02/05/2025 8:00 AM EDT Office Visit [facility] ADULT DENTAL [address] [place] [address] Tameka Barfield [address] [place] [address] documented as of this encounter Visit Diagnoses Not on filedocumented in this encounter Additional Health Concerns Assessment Noted Time PHQ-9 Depression Total Score: 6 04/21/20 9:40 AM EDT documented as of this encounter Care Teams Pound Keeper Relationship Specialty Start Date End Date Shakira Nichols MD [address] [place] [phone] PCP - General Internal Medicine 03/24/23 documented as of this encounter
--- OUTSIDE RECORDS SUMMARY | 2024-11-01 15:52 | XMS_ITS | Encounter Summary ---
Author Organization [employer] Address [address] [place] [address] 7t [place] [address] Care Team Providers Care Asp Net Programmer Name Role Phone Shakira Nichols MD Primary Care Pro vider Reason for Visit * Reason Comments Med Refill Encounter Details Date Type Department Care Team ([facility] st Contact Info) Description 10/27/2023 Refill [facility] [address] [place], [place] [phone] Shakira Nichols MD [address] [place] [address] Social History Tobacco Use Types Packs/Day Years [...] Description 01/24/2025 9:45 AM EDT Office Visit [facility] [address] [place] [address] Shakira Nichols MD [address] [place] [address] 02/05/2025 8:00 AM EDT Office Visit [facility] ADULT DENTAL [address] [place] [address] LicoTameka [address] [place] [address] documented as of this encounter Visit Diagnoses Not on filedocumented in this encounter Additional Health Concerns Assessment Noted Time PHQ-9 Depression Total Score: 6 04/21/20 9:40 AM EDT documented as of this encounter Care Teams Asp Net Programmer Relationship Specialty Start Date End Date Shakira Nichols MD [address] [place] [address] PCP - General Internal Medicine 03/24/23 documented as of this encounter
--- OUTSIDE RECORDS SUMMARY | 2024-11-01 15:52 | XMS_ITS | Encounter Summary ---
Author Organization [facility] Address [address] [facility] [address] [facility] [address] [place] [address] Care Team Providers Care Integrated Campaign Manager Name Role Phone Shakira Nichols MD Primary Care Pro vider Reason for Visit * Reason Comments Med Refill Encounter Details Date Type Department Care Team ([facility] st Contact Info) Description 09/20/2023 Refill [facility] ADULT DENTAL [address] [place], [place] [phone] Flakito Kapadia, DDSuresh [address] [place] [address] Social History Tobacco Use Types Packs/Day Years [...] Description 01/24/2025 9:45 AM EDT Office Visit [facility] MEDICINE [address] [place] [address] Shakira Nichols MD [address] [place] [address] 02/05/2025 8:00 AM EDT Office Visit [facility] ADULT DENTAL [address] [place] [address] Lico, Tameka [address] [place] [address] documented as of this encounter Visit Diagnoses Not on filedocumented in this encounter Additional Health Concerns Assessment Noted Time PHQ-9 Depression Total Score: 6 04/21/20 9:40 AM EDT documented as of this encounter Care Teams Integrated Campaign Manager Relationship Specialty Start Date End Date Shakira Nichols MD [address] [place] [address] PCP - General Internal Medicine 03/24/23 documented as of this encounter
--- OUTSIDE RECORDS SUMMARY | 2024-11-01 15:52 | XMS_ITS | Encounter Summary ---
Author Organization [employer] Address [address] [place] [address] 7t [place] [address] Care Team Providers Care Melter Supervisor Electric Arc Furnace Name Role Phone Shakira Nichols MD Primary Care Pro vider Reason for Visit * Reason Comments Med Refill Encounter Details Date Type Department Care Team ([facility] st Contact Info) Description 10/18/2023 Refill [facility] MEDICINE [address] [place], [place] [phone] Shakira Nichols MD [address] [place] [address] Social History Tobacco Use Types Packs/Day Years [...] Office Visit [facility] MEDICINE [address] [place] [address] Shakira Nichols MD [address] [place] [address] 02/05/2025 8:00 AM EDT Office Visit [facility] ADULT DENTAL [address] [place] [address] LicoTameka [address] [place] [address] documented as of this encounter Visit Diagnoses Not on filedocumented in this encounter Additional Health Concerns Assessment Noted Time PHQ-9 Depression Total Score: 6 04/21/20 9:40 AM EDT documented as of this encounter Care Teams Melter Supervisor Electric Arc Furnace Relationship Specialty Start Date End Date Shakira Nichols MD [address] [place] [address] PCP - General Internal Medicine 03/24/23 documented as of this encounter
--- OUTSIDE RECORDS SUMMARY | 2024-11-01 15:52 | XMS_ITS | Encounter Summary ---
Author Organization [employer] Address [address] [facility] 7t [place] [address] Care Team Providers Care Obstetrics Specialist Name Role Phone Shakira Nichols MD Primary Care Pro vider Reason for Visit * Reason Comments Med Refill Encounter Details Date Type Department Care Team ([facility] st Contact Info) Description 02/06/2024 Refill [facility] MED & PEDS [address] [place], [place] [phone] Shakira Nichols MD [address] [place] [address] Social History Tobacco Use Types Packs/Day Years [...] Description 01/24/2025 9:45 AM EDT Office Visit [facility] MEDICINE [address] [place] [address] Shakira Nichols MD [address] [place] [address] 02/05/2025 8:00 AM EDT Office Visit [facility] ADULT DENTAL [address] [place] [address] Lico, Tameka [address] [place] [address] documented as of this encounter Visit Diagnoses Not on filedocumented in this encounter Additional Health Concerns Assessment Noted Time PHQ-9 Depression Total Score: 19 024 10:06 AM EDT documented as of this encounter Care Teams Obstetrics Specialist Relationship Specialty Start Date End Date Shakira Nichols MD [address] [place] [address] PCP - General Internal Medicine 03/24/23 documented as of this encounter
== END 2024-11-01 13:46 | disposition home or self-care (01) ==
LOC: HO.HKAM 13:21
PROVIDERS: PCP Student in an Organized Health Care Education/Training Program; Visit Provider Internal Medicine Hypertension Specialist
DX: I12.9 Hypertensive chronic kidney disease with stage 1 through stage 4 chronic kidney disease, or unspecified chronic kidney disease (principal); E11.22 Type 2 diabetes mellitus with diabetic chronic kidney disease; N18.9 Chronic kidney disease, unspecified
CPT/HCPCS: 99214

== ENCOUNTER → 2024-11-01 13:21 | Outpatient (BNVA) | payer MEDICARE, MEDICAID, SELFPAY | PROVIDERS: PCP Student in an Organized Health Care Education/Training Program; Visit Provider Internal Medicine Hypertension Specialist | DX: E11.22 Type 2 diabetes mellitus with diabetic chronic kidney disease (principal); I12.9 Hypertensive chronic kidney disease with stage 1 through stage 4 chronic kidney disease, or unspecified chronic kidney disease; N18.9 Chronic kidney disease, unspecified | CPT/HCPCS: 99212 ==

== ENCOUNTER 2025-01-24 10:48 | Outpatient (REF) | payer MEDICARE, MEDICAID, SELFPAY ==
--- OUTSIDE RECORDS SUMMARY | 2025-01-24 11:53 | XMS_ITS | Clinical Summary ---
Author Organization [facility] Address 175 [place] [address] Phone Care Team Providers Care Spinning Frame Changer Name Role Phone Gil Suazo DO Primary Care Provider [phone] Allergies Active Allergy Reactions Criticality Noted Date Comments Dapagliflozin 08/20/2023 Mx urinary symptoms, not well tolerated Medications terbinafine (LamISIL) 250 mg tablet Take 1 tablet (250 mg total) by mouth 1 (one) time each day. 90 each 11/13/2024 Active Encounters Date Type Department Care Team Description 12/27/2024 3:00 PM EDT Office Visit [facility] [address] [phone] Jet Guerrier DPM Dermatophytosis of nail (Primary Dx); Tinea pedis of both feet; Diabetic mononeuropathy simplex (CMS/HCC V24, CMS/HCC V28) 11/13/2024 1:00 PM EDT Office Visit [facility] [address] [phone] Jet Guerrier DPM Dermatophytosis of nail (Primary Dx); Tinea pedis of both feet; Diabetic mononeuropathy simplex (CMS/HCC V24, CMS/HCC V28) from Last 3 Months [...] Care Team (Late st Contact Info) Description 03/29/2025 3:00 PM EDT Office Visit [facility] [place] [address] [phone] Jet Guerrier, MATHEUS [address] [address] Health Maintenance Due Date Last Done Comments Diabetes: Annual Foot Exam 1972 Diabetes: Annual Retina Eye Exam 1972 Colorectal Cancer Screening: Colonoscopy 04/27/2024 Medicare Annual Wellness Visit 04/27/2024 Social Influencers of Health Screening 04/27/2024 Diabetes: Annual Urine Albumin-Creatinine Ratio (uACR) 08/14/2024 Influenza Vaccine (#1) 2025 , 04/19/2023, 05/15/2020 Diabetes: Blood Sugar Control Test (HGBA1C) 04/26/2025 10/25/2024, 05/24/2024 Diabetes: Annual GFR (Glomerular Filtration Rate) 05/24/2025 05/24/2024 Hypertension/CHF/CAD Annual BMP Blood Test 05/24/2025 05/24/2024 Depression Screening 10/25/2025 10/25/2024 Cholesterol Screening (Lipid Panel) 05/24/2029 05/24/2024 DTaP,Tdap,and Td Vaccines (3 - Td or Tdap) 01/14/2033 01/14/2023, 05/08/2016 Zoster Vaccines Completed 01/21/2023, 11/17/2022 Pneumococcal Vaccine: 50+ Years Completed 04/19/2023, 10/08/2014 RSV Immunization Adult Patients Completed 11/10/2023 Hepatitis B Vaccines Completed 12/09/2023, 06/17/2023, 05/20/2023 COVID-19 Vaccine Completed 05/23/2024, 08/2023, 05/21/2022, Additional history exists HIV Screening Completed 05/24/2024 Hepatitis C Screening [...] MEDICARE ADVANTAGE MEDICAID - [place] Care Teams Spinning Frame Changer Relationship Specialty Start Date End Date Gil Suazo DO [facility] [address] PCP - General Family Medicine 09/16/18
--- OUTSIDE RECORDS SUMMARY | 2025-01-24 11:53 | XMS_ITS | Encounter Summary ---
Author Organization [employer] Address [address] [place] [address] [place] [address] Care Team Providers Care Store Associate Name Role Phone Shakira Nichols MD Primary Care Pro vider Reason for Visit * Reason Onset Date Comments CHART PREP 01/23/2025 Encounter Details Date Type Department Care Team ([facility] st Contact Info) Description 01/23/2025 Telephone [facility] MEDICINE [address] [place] [address] Shakira Nichols MD [address] [place] [address] CHART PREP Social History Tobacco Use Types Packs/Day Years [...] encounter Miscellaneous Notes * Telephone Encounter - Eusebia Guerra [place] - 01/23/2025 1:23 PM EDT Chart Prep Labs: not applicable Images: not applicable Referrals: not applicable Vaccines due: not applicable Screenings: eye exam and foot exam Overdue care gaps: A1c and Glucose documented in this encounter Plan of Treatment Upcoming Encounters Date Type Department Care Team (Late st Contact Info) Description 02/05/2025 8:00 AM EDT Office Visit [facility] ADULT DENTAL [address] [place] [address] Tameka Barfield [address] [place] [address] 02/14/2025 10:30 AM EDT Office Visit [facility] ADULT DENTAL [address] [place] [address] Flakito Kapadia DDS [address] [place] [address] documented as of this encounter Visit Diagnoses Not on filedocumented in this encounter Additional Health Concerns Assessment Noted Time PHQ-9 Depression Total Score: 0 10/26/19 25 9:14 AM EDT documented as of this encounter Care Teams Store Associate Relationship Specialty Start Date End Date Shakira Nichols MD [address] [place] [address] PCP - General Internal Medicine 03/24/23 documented as of this encounter
[2025-01-24 12:25] LABS: Hemoglobin A1C 168.1838 umol/L; Total Hemoglobin (HGBA1C) 4298.6978 umol/L
[2025-01-24 12:31] LABS: Alanine Aminotransferase 32 U/L (0-40); Albumin Level 4.9 g/dL (3.5-5.0); Alkaline Phosphatase 64 U/L (39-117); Anion Gap 12 (12-20); Aspartate Amino Transferase 27 U/L (5-37); Blood Urea Nitrogen 17 mg/dL (9-16); Calcium 9.5 mg/dL (8.4-10.2); Carbon Dioxide 27 mmol/L (22-29); Chloride 108 mmol/L (96-108); Cholesterol 137 mg/dL (<200); Estimated Glomerular Filt Rate 53; HDL Cholesterol 45 mg/dL (>40); Potassium 4.2 mmol/L (3.3-5.1); Sodium 143 mmol/L (135-145); Total Protein 7.3 g/dL (6.5-8.0); Triglycerides 112 mg/dL (<150)
[2025-01-24 13:07] LABS: Folate 11.8 ng/mL (> or = 4.0); Vitamin B12 494 pg/mL (200-900)
== END 2025-01-24 10:49 | disposition home or self-care (01) ==
LOC: HO.HHCL 10:48
PROVIDERS: PCP Student in an Organized Health Care Education/Training Program; Visit Provider Student in an Organized Health Care Education/Training Program
DX: E11.9 Type 2 diabetes mellitus without complications (principal)
CPT/HCPCS: 36415; 80053; 80061; 82570; 82607; 82746; 83036

== ENCOUNTER 2025-03-05 13:01 | Outpatient (AMB) | payer MEDICARE, MEDICAID, SELFPAY ==
[2025-03-05 13:15] VITALS: BP 110/62; PULSE 88; O2SAT 98; BMI 24.4
--- NOTE | 2025-03-05 13:15 | HO.NEPHOV_ITS ---
Vital Signs 03/05/25 13:15 Height 5 ft 11 in Weight 175 lb BMI 24.4 BP 110/62 Blood Pressure Location Lt brachial Position Sitting Pulse 88 Pulse Source Pulse Oximeter Pulse Oximetry (%) 98 Oxygen Delivery Method Room Air Intake Visit Reasons: follow up/ Conf What Job Titles Mean Required: No What Job Titles Mean Services: What Job Titles Mean Offered & Declined Accompanied by: Self / Same As Patient Allergies No Known Allergies Allergy (Verified 03/05/25 13:17) Medication List - Last Reconciled 03/05/25 by Ha Haynes MD acetaminophen ER 650 mg PO Q8H PRN albuterol sulfate 90 mcg/actuation (Ventolin HFA) 2 puffs PO Q4H PRN amlodipine 5 mg PO DAILY blood pressure test kit-large As directed blood sugar diagnostic (Nitric Bio Verio test strips) As directed cyclobenzaprine 5 mg PO BEDTIME PRN empagliflozin (Jardiance) 10 mg PO DAILY fluticasone propion-salmeterol 115-21 mcg/actuation (Advair HFA) 2 puffs inhalation BID ibuprofen 800 mg PO Q8H PRN 30 days lancets (Nitric Bio Delica Lancets) As directed lidocaine-prilocaine 2.5-2.5 % topical DAILY losartan 100 mg PO DAILY metformin 500 mg PO BID omeprazole 20 mg PO DAILY pravastatin 40 mg PO DAILY salmeterol (Serevent Diskus) 1 inh PO BID 1 month semaglutide (Ozempic) 2 mg subcut sertraline 50 mg PO DAILY HPI Comments Details: Bernardo Shook is a pleasant 63-year-old man with a history of diabetes mellitus for almost 8 years along with hypertension. He has been referred for chronic kidney disease. Up until 05/07/2023 serum creatinine is around 1.2 mg/dL. In June of 2023 creatinine bumped up to 1.6 and for the last 6 months creatinine has been staying around 1.5-1.6 mg/dL. He has been referred for evaluation of chronic kidney disease. Recent urine studies did not reveal any significant proteinuria/microalbuminuria or any hematuria. A renal ultrasonogram which was unremarkable. No obstruction. Renal sizes were acceptable with normal echogenicity. He was on losartan 100/12.5. Recently the HCTZ has been dropped and he is currently on losartan 100 mg a day. He has been monitoring his blood pressure at home. Recent blood pressure readings are excellent. Prior to this systolic blood pressure was in the 140s and 150s. He was on Trulicity. Recently this was changed to Ozempic. He is lost about 35 lb. Today he has no specific complaints like headache nausea or vomiting. No shortness of breath. No edema. No urinary symptoms. He does have chronic low back pain. 03/05/25: Doing well. BP well controlled. No new issues [facility] Medical History HTN (hypertension) Diabetes GERD (gastroesophageal reflux disease) Back pain Depression Surgical History H/O colonoscopy History of removal of cyst History of shoulder surgery Family History Father No problems noted. Mother Colon cancer Diabetes Sister Diabetes Social History Housing: House Alcohol intake: current Alcohol intake frequency: holidays/special occasions only Alcohol type: beer Patient Tobacco Use Status: Former Tobacco user Tobacco use type: Cigarette Years Smoked: 20 +/- e-Cigarette/Vaping Use: Never Used Second Hand Smoke Exposure: No service: No Current occupational status: retired Current occupation: right hand dominant Current occupational exposures/hazards: No Cognitive needs: No Hearing needs: No Vision needs: No Physical Exam Vital Signs: Last Vital Signs Pulse 88 03/05/25 13:15 BP 110/62 03/05/25 13:15 Pulse Ox 98 03/05/25 13:15 Oxygen Delivery Method Room Air 03/05/25 13:15 BMI result Body Mass Index 24.4 Comfortable Neck supple no JVD. Lungs entry equal no rales. Heart S1-S2 heard no gallop or rub. Abdomen soft nontender. Neuro alert awake oriented. No asterixis. Extremities no edema. Results Reviewed Nephrology Results: Hgb, (14.0-18.0) 15.7 g/dl 05/24/24 WBC, (4.8-10.8) 6.0 X10*3/uL 05/24/24 Plt Count, (160-400) 221 X10*3/uL 05/24/24 Sodium, (135-145) 143 mmol/L 01/24/25 Potassium, (3.3-5.1) 4.2 mmol/L 01/24/25 Chloride, (96-108) 108 mmol/L 01/24/25 Carbon Dioxide, (22-29) 27 mmol/L 01/24/25 BUN, (9-16) 17 mg/dL H 01/24/25 Creatinine, (0.5-1.4) 1.36 mg/dL 01/24/25 Calcium, (8.4-10.2) 9.5 mg/dL 01/24/25 Urine Creatinine 125.81 mg/dL 01/24/25 Renal US 12/08/23 Assessment & Plan Assessment & Plan (1) CKD (chronic kidney disease): Code(s): N18.9 - Chronic kidney disease, unspecified Category: Medical (2) Hypertension, essential: Code(s): I10 - Essential (primary) hypertension Category: Medical (3) Diabetes type 2, controlled: Code(s): E11.9 - Type 2 diabetes mellitus without complications Category: Medical Plan Boone has CKD 3 in the setting of longstanding diabetes mellitus and hypertension. He probably has underlying hypertensive diabetic kidney disease. However he could have sustained acute kidney injury primarily due to hypoperfusion. No evidence of obstruction. No reason to suspect that he has any active glomerulo nephritis or interstitial disease at this time. Goal is to slow the portion of renal disease. Continue to maintain blood pressure less than 130/80. Maintain hemoglobin A1c less than 7%. Agree with losartan for now. He had be a good candidate for SGLT2 inhibitors. In the past he was intolerant to Farxiga. Keep Jardiance. Continue to avoid nephrotoxic agents including NSAIDs. Hypertension Blood pressure is well controlled with the current regimen. Encouraged him to stand low-sodium diet and continue monitoring his blood pressure at home. There has been no significant of anemia or secondary hyperparathyroidism at this time and I will continue to monitor as needed. No changes were made. Orders: Orders Basic Metabolic Panel 4 Months N18.9 - Chronic kidney disease, unspecified Total Protein Urine Random 4 Months N18.9 - Chronic kidney disease, unspecified Creatinine Urine 4 Months N18.9 - Chronic kidney disease, unspecified Coding Level of Care Code Est Pt Level 4 (68380) Diagnoses CKD (chronic kidney disease) N18.9 Hypertension, essential I10 Diabetes type 2, controlled E11.9
--- OUTSIDE RECORDS SUMMARY | 2025-03-05 13:55 | XMS_ITS | Clinical Summary ---
Author Organization 175 [facility] Address [address] [place] [address] Phone Care Team Providers Care Insurance Office Supervisor Name Role Phone Gil Suazo DO Primary Care Provider [phone] Allergies Active Allergy Reactions Criticality Noted Date Comments Dapagliflozin 08/20/2023 Mx urinary symptoms, not well tolerated Medications terbinafine (LamISIL) 250 mg tablet Take 1 tablet (250 mg total) by mouth 1 (one) time each day. 90 each 11/13/2024 Encounters Date Type Department Care Team Description 12/27/2024 3:00 PM EDT Office Visit [facility] - [place] 250 175 [facility] [address] [place] [phone] Jet Guerrier, DPM Dermatophytosis of nail [...] PM EDT Office Visit [facility] - [place] [address] [phone] Jet Guerrier, DPM [address] [address] Health Maintenance Due Date Last Done Comments Diabetes: Annual Foot Exam 1972 Diabetes: Annual Retina Eye Exam 1972 Colorectal Cancer Screening: Colonoscopy 04/27/2024 Medicare Annual Wellness Visit 04/27/2024 Social Influencers of Health Screening 04/27/2024 Depression Screening 07/19/2024 Diabetes: Annual Urine Albumin-Creatinine Ratio (uACR) 08/14/2024 [...] MEDICARE ADVANTAGE MEDICAID - [place] Care Teams Insurance Office Supervisor Relationship Specialty Start Date End Date Gil Suazo DO [address] [address] PCP - General Family Medicine 09/16/18
--- OUTSIDE RECORDS SUMMARY | 2025-03-05 13:55 | XMS_ITS | Encounter Summary ---
Author Organization [employer] Address [address] [place] [address] 7 [place] [address] Care Team Providers Care Disease Control Inspector Name Role Phone Shakira Nichols MD Primary Care Pro vider Reason for Visit * Reason Comments Med Refill Encounter Details Date Type Department Care Team ([facility] st Contact Info) Description 12/14/2023 Refill [facility] MEDICINE [address] [place], [place] [phone] Shakira Nichols MD [address] [place], [place] [phone] Chronic low back pain without sciatica, unspecified [...] Care Team (Late st Contact Info) Description 03/12/2025 9:30 AM EDT Office Visit [facility] ADULT DENTAL [address] [place] [address] Flakito Kapadia DDS [address] [place] [address] 04/04/2025 9:00 AM EDT Office Visit [facility] MEDICINE [address] [place] [address] Shakira Nichols MD [address] [place] [address] documented as of this encounter Visit Diagnoses Diagnosis Chronic low back pain without sciatica, unspecified back pain laterality documented in this encounter Additional Health Concerns Assessment Noted Time PHQ-9 Depression Total Score: 6 04/21/20 9:40 AM EDT documented as of this encounter Care Teams Disease Control Inspector Relationship Specialty Start Date End Date Shakira Nichols MD [address] [place] [phone] PCP - General Internal Medicine 03/24/23 documented as of this encounter
== END 2025-03-05 13:25 | disposition home or self-care (01) ==
LOC: HO.HKA 13:02
PROVIDERS: PCP Student in an Organized Health Care Education/Training Program; Visit Provider Internal Medicine Hypertension Specialist
DX: I12.9 Hypertensive chronic kidney disease with stage 1 through stage 4 chronic kidney disease, or unspecified chronic kidney disease (principal); N18.9 Chronic kidney disease, unspecified; E11.9 Type 2 diabetes mellitus without complications
CPT/HCPCS: 99214

== ENCOUNTER → 2025-03-05 13:01 | Outpatient (BNVA) | payer MEDICARE, MEDICAID, SELFPAY | PROVIDERS: PCP Student in an Organized Health Care Education/Training Program; Visit Provider Internal Medicine Hypertension Specialist | DX: I10 Essential (primary) hypertension (principal); N18.9 Chronic kidney disease, unspecified; E11.9 Type 2 diabetes mellitus without complications | CPT/HCPCS: 99212 ==

== ENCOUNTER 2025-07-02 12:57 | Outpatient (AMB) | payer MEDICARE, MEDICAID, SELFPAY ==
--- OUTSIDE RECORDS SUMMARY | 2025-06-28 14:00 | XMS_ITS | Encounter Summary ---
Author Organization [facility] Address [address] [place] [address] Care Team Providers Care Estate Planning Attorney Name Role Phone Gil Suazo DO Primary Care Provider [phone] Reason for Visit * Reason Comments DM Foot Care Encounter Details Date Type Department Care Team (Late st Contact Info) Description 06/28/2025 2:00 PM EST Office Visit Orthopedic Surgery - [place] [address] [phone] Jet Guerrier DPM [address] [address] Dermatophytosis of nail (Primary Dx); Tinea pedis of both feet; Diabetic mononeuropathy simplex (CMS/HCC V24, CMS/HCC V28) Social History Tobacco Use Types Packs/Day Years Used Date Smoking Tobacco: Never Assessed Sex and Gender Information Value Date Recorded Sex Assigned at Not on file Legal Sex Male 5:36 AM EST Gender Identity Not on file Sexual Orientation Not on file documented as of this encounter Progress Notes * Jet Guerrier DPM - 06/28/2025 2:00 PM EST S Patient states he is doing well with the Lamisil has finished course of oral medication has noted his nails continue to improve does note his nails are longer painful thickened actively cutting himself he is prediabetic endorses occasional tingling to his feet reports the medication continues to improve he states his nails started grow back completely normal he is excited with relative improved nail plate Last PCP visit 01/24/[address] Abhijeet HUITRON ROS: GENERAL: Pt denies nausea, fever, vomiting, chills, or shortness of breath. Pt in NAD. CARDIOLOGY: pt denies chest pain, palpitations LUNGS: pt denies shortness of breath MUSCULOSKELETAL: See HPI, otherwise no joint pain or swelling, back pain, or muscle pain. SKIN: see HPI, otherwise no lesions, rash or itching NEURO: No persistent headache, weakness or numbness The remainder of the review of systems is noncontributory PAST MEDICAL HISTORY: There is no problem list on file for this patient. SOCIAL HISTORY: Social History Tobacco Use Smoking status: Not on file Smokeless tobacco: Not on file Substance Use Topics Alcohol use: Not on file History Never marked as reviewed. ACTIVE MEDICATIONS: Current Outpatient Medications Medication Sig Dispense Refill clotrimazole (LOTRIMIN) 1 % cream Apply to skin and toenails daily for 12 weeks 45 g 3 Ciclopirox 0.77 % Gel Apply topically daily 30 g 2 No current facility-administered medications for this visit. ALLERGIES: Patient has no known allergies. PHYSICAL EXAM: Weight 174 lb (78.9 kg). Estimated body mass index is 24.27 kg/m?? as calculated from the following: Height as of 02/09/24: 5' 11 (1.803 m). Weight as of this encounter: 174 lb (78.9 kg). PODIATRIC EXAMINATION: GENERAL: Patient appears well nourished, with NAD. VASCULAR: Dorsalis pedis pulses are 2/4 bilaterally and Posterior tibial pulses are 2/4 bilaterally. Capillary filling time within normal limits the digits. No pallor on elevation or rubor on dependency. Positive hair growth. No varicosities. Denies rest pain or claudication pain. NEUROLOGICAL: Sharp/dull sensation intact, protective sensation intact 10/10 with 5.07 semmes lynette bilaterally, vibratory sensation with tuning fork intact to the tibial tuberosity. ORTHOPEDIC: Good muscle strength 5/5 of all flexors and extensors. Dorsi flexion of ankle ,10 degrees, plantar flexion WNL. No muscle atrophy. DERMATOLOGICAL:.Annular scaling both feet resolved Toenails: Left Toenail(s) 1-5: subungual debris, discoloration, hypertrophic, elongation, mycotic appearance, onychomycosis, pain and thickening. Distal 30% of margin Right Toenail(s) 1-5: subungual debris, discoloration, hypertrophic, elongation, mycotic appearance, onychomycosis, pain and thickening. Distal 30% of margin BIOMECHANICS: STJ ROM wnl, MTJ ROM wnl, 1st MPJ ROM wnl. IMAGING: IMPRESSION: 1. Dermatophytosis of nail 2. Tinea pedis of both feet 3. Diabetic mononeuropathy simplex ([facility] V24, [facility] V28) PLAN: Pt was seen and examined, history reviewed. Patient is worsening patient has worsening fungus has failed topical therapy CMP reviewed from May 2024 normal ALT ALT alk phos Patient finished course of Lamisil as prescribed Discussed and educated that Lamisil should stay in his system for another 3 to 6 months after finishing course Nails can optimize therapy Discussed with patient regarding proper glucose control, exercise, and diet. Explained to patient proper shoe gear, and importance of daily foot checks. I reviewed neuropathy and why it occurs in diabetics. I educated the patient on proper blood sugar control and the importance of an HgBA1c of less than 7.0%. I reviewed the signs and symptoms of neuropathy with the patient Pt to return for another evaluation in 2 to 3 months Jet Guerrier DPM documented in this encounter Plan of Treatment Upcoming Encounters Date Type Department Care Team (Late st Contact Info) Description 09/26/2025 1:30 PM EDT Office Visit Orthopedic Surgery - [place] [address] [phone] Jet Guerrier DPM [address] [phone] documented as of this encounter Visit Diagnoses Diagnosis Dermatophytosis of nail- Primary Tinea pedis of both feet Diabetic mononeuropathy simplex ([facility] V24, [facility] V28) Type II or unspecified type diabetes mellitus with neurological manifestations, not stated as uncontrolled documented in this encounter Historical Medications * This list may reflect changes made after this encounter. terbinafine (LamISIL) 250 mg tablet Take 1 tablet (250 mg total) by mouth daily. sertraline (ZOLOFT) 50 mg tablet Take 1 tablet (50 mg total) by mouth 1 (one) time each day. 10/25/2024 Ozempic 1 mg/dose (4 mg/3 mL) injection pen Inject 1 MG SUBCUTANEOUSLY EVERY 7 DAYS IN THE ABDOMEN, THIGHS OR UPPER ARM. ROTATE INJECTION SITES. 10/09/2024 pravastatin (PRAVACHOL) 40 mg tablet Take 1 tablet (40 mg total) by mouth daily. 05/18/2025 omeprazole (PriLOSEC) [address] capsule Take 1 capsule (20 mg total) by mouth 1 (one) time each day. 05/29/2025 metFORMIN (GLUCOPHAGE) 500 mg tablet TAKE 1 TABLET BY MOUTH TWICE DAILY IN THE MORNING AND IN THE EVENING WITH MEALS 04/26/2025 lidocaine-prilo david (EMLA) 2.5-2.5 % cream APPLY TOPICALLY TO THE AFFECTED AREA(S) EVERY TWELVE HOURS NEEDED FOR MILD PAIN 11/01/2024 ibuprofen (ADVIL,MOTRIN) 400 mg tablet Take 1 tablet (400 mg total) by mouth. 02/14/2025 Breo Ellipta 100-25 mcg/dose inhaler INHALE 1 PUFF BY MOUTH EVERY DAY AT THE SAME TIME RINSE MOUTH AFTER USING 01/17/2025 Advair HFA 115-21 mcg/actuation inhaler INHALE 2 PUFFS BY MOUTH TWICE DAILY EVERY MORNING AND AT BEDTIME 07/10/2024 diclofenac (VOLTAREN) 1 % topical gel Apply up to 4x/d to affected joint(s) for pain/swelling 04/07/2024 clotrimazole (LOTRIMIN) 1 % cream apply topically to the affected area(s) twice daily for fourteen days 06/06/2025 bisacodyL (DULCOLAX) 5 mg EC tablet TAKE 4 TABLETS BY MOUTH AT NOON THE DAY BEFORE YOUR COLONOSCOPY 07/06/2023 amLODIPine (NORVASC) 5 mg tablet Take 1 tablet (5 mg total) by mouth daily. 04/16/2025 Easy Touch Alcohol Prep Pads pads, medicated See administration instructions. 05/21/2023 Ventolin HFA 90 mcg/actuation inhaler Take 2 puffs by mouth every 4 (four) hours if needed. 12/28/2024 acetaminophen (TYLENOL) 500 mg tablet Take 1 tablet (500 mg total) by mouth every 8 hours as needed. 02/14/2025 added in this encounter Care Teams Estate Planning Attorney Relationship Specialty Start Date End Date Gil Suazo DO [address] [facility] [address] [place] [address] PCP - General Family Medicine 09/16/18 documented as of this encounter
[2025-07-02 13:10] VITALS: BP 110/54; PULSE 81; O2SAT 98; BMI 25.1
--- NOTE | 2025-07-02 13:10 | HO.NEPHOV_ITS ---
Vital Signs 07/02/25 13:10 Height 5 ft 11 in Weight 180 lb BMI 25.1 BP 110/54 L Blood Pressure Location Lt brachial Position Sitting Pulse 81 Pulse Source Pulse Oximeter Pulse Oximetry (%) 98 Oxygen Delivery Method Room Air Intake Visit Reasons: 4 MO FU Vocational Rehab Consultant Required: No Vocational Rehab Consultant Services: Vocational Rehab Consultant Offered & Declined (Patient understands Upper Sorbian ) Accompanied by: Self / Same As Patient Allergies No Known Allergies Allergy (Verified 07/02/25 13:12) Medication List - Last Reconciled 07/02/25 by Ha Haynes MD acetaminophen ER 650 mg PO Q8H PRN albuterol sulfate 90 mcg/actuation (Ventolin HFA) 2 puffs PO Q4H PRN amlodipine 5 mg PO DAILY blood pressure test kit-large As directed blood sugar diagnostic ([employer] test strips) As directed cyclobenzaprine 5 mg PO BEDTIME PRN empagliflozin (Jardiance) 10 mg PO DAILY fluticasone propion-salmeterol 115-21 mcg/actuation (Advair HFA) 2 puffs inhalation BID ibuprofen 800 mg PO Q8H PRN lancets (FormattaTouch Delica Lancets) As directed lidocaine-prilocaine 2.5-2.5 % topical DAILY losartan 100 mg PO DAILY metformin 500 mg PO BID omeprazole 20 mg PO DAILY pravastatin 40 mg PO DAILY salmeterol (Serevent Diskus) 1 inh PO BID 1 month semaglutide (Ozempic) 2 mg subcut QWEEK sertraline 50 mg PO DAILY HPI Comments Details: History of Present Illness The patient is a 64 year old male presenting for a follow-up visit for hypertension and heart disease. He reports taking all his medications, which include Jardiance, Ozempic (semaglutide), amlodipine 5 mg, metformin, and losar cee 100 mg. His blood sugar is reported to be okay. The patient denies any current problems, including trouble urinating or swelling in his legs. He last saw his primary care physician one month ago, at which time no changes were made to his medications. He denies the use of ibuprofen. [facility] Medical History HTN (hypertension) Diabetes GERD (gastroesophageal reflux disease) Back pain Depression Surgical History H/O colonoscopy History of removal of cyst History of shoulder surgery Family History Father No problems noted. Mother Colon cancer Diabetes Sister Diabetes Social History Housing: House Alcohol intake: current Alcohol intake frequency: holidays/special occasions only Alcohol type: beer Patient Tobacco Use Status: Former Tobacco user Tobacco use type: Cigarette Years Smoked: 20 +/- e-Cigarette/Vaping Use: Never Used Second Hand Smoke Exposure: No service: No Current occupational status: retired Current occupation: right hand dominant Current occupational exposures/hazards: No Cognitive needs: No Hearing needs: No Vision needs: No Physical Exam Exam Exam: Physical Exam General: Awake. Comfortable. HENT: Neck supple. Mucosa moist. Pulmonary: Lungs aeration equal. No rales. Cardiology: Heart S1-S2 heard. No gallop. Abdomen: Soft. Non tender. Bowel sounds normal. Neurologic: No involuntary movements. No myoclonus. Extremities: No edema. No rash. Vital Signs: Last Vital Signs Pulse 81 07/02/25 13:10 BP 110/54 L 07/02/25 13:10 Pulse Ox 98 07/02/25 13:10 Oxygen Delivery Method Room Air 07/02/25 13:10 BMI result Body Mass Index 25.1 Results Reviewed Nephrology Results: Hgb, (14.0-18.0) 15.7 g/dl 05/24/24 WBC, (4.8-10.8) 6.0 X10*3/uL 05/24/24 Plt Count, (160-400) 221 X10*3/uL 05/24/24 Sodium, (135-145) 143 mmol/L 01/24/25 Potassium, (3.3-5.1) 4.2 mmol/L 01/24/25 Chloride, (96-108) 108 mmol/L 01/24/25 Carbon Dioxide, (22-29) 27 mmol/L 01/24/25 BUN, (9-16) 17 mg/dL H 01/24/25 Creatinine, (0.5-1.4) 1.36 mg/dL 01/24/25 Calcium, (8.4-10.2) 9.5 mg/dL 01/24/25 Urine Creatinine 125.81 mg/dL 01/24/25 Renal US 12/08/23 Assessment & Plan Assessment & Plan (1) CKD (chronic kidney disease): Code(s): N18.9 - Chronic kidney disease, unspecified Category: Medical (2) Hypertension, essential: Code(s): I10 - Essential (primary) hypertension Category: Medical (3) Diabetes type 2, controlled: Code(s): E11.9 - Type 2 diabetes mellitus without complications Category: Medical Plan Plan 1. Hypertension - The patient's blood pressure is well-controlled. - Continue amlodipine 5 mg and losartan 100 mg, noting that losartan is also beneficial for the kidneys. 2. Type 2 Diabetes Mellitus - The patient reports his blood sugars are okay. - Continue current medications including Jardiance, semaglutide (Ozempic), and metformin. - Jardiance is noted to be beneficial for kidney protection. 3. Chronic Kidney Disease In a setting of HTN/DM - The patient is clinically stable, denying any swelling or urinary issues. - An order will be placed for blood work to be done today to check kidney function. - Continue Jardiance and losartan for their renal protective effects. - The patient was advised to avoid ibuprofen. Orders: Orders Basic Metabolic Panel Today N18.9 - Chronic kidney disease, unspecified Creatinine Urine Today N18.9 - Chronic kidney disease, unspecified UA and rflx microscopic Today N18.9 - Chronic kidney disease, unspecified Total Protein Urine Random Today N18.9 - Chronic kidney disease, unspecified Medications: Discontinued ibuprofen Discontinued Reason: Doctor's Order 800 mg PO Q8H PRN 90 tabs 3RF for pain Coding Level of Care Code Est Pt Level 4 (18661) Diagnoses CKD (chronic kidney disease) N18.9 Hypertension, essential I10 Diabetes type 2, controlled E11.9
--- OUTSIDE RECORDS SUMMARY | 2025-07-02 18:51 | XMS_ITS | Clinical Summary ---
Author Organization 175 [facility] Address 175 [place] [address] Phone Care Team Providers Care Experimental Display Builder Name Role Phone Gil Suazo DO Primary Care Provider [phone] Allergies Active Allergy Reactions Criticality Noted Date Comments Dapagliflozin 08/20/2023 Mx urinary symptoms, not well tolerated Medications acetaminophen (TYLENOL) 500 mg tablet Take 1 tablet (500 mg total) by mouth every 8 hours as needed. 5 Active Ventolin HFA 90 mcg/actuation inhaler Take 2 puffs by mouth every 4 (four) hours if needed. 5 Active Easy Touch Alcohol Prep Pads pads, medicated See administration instructions. 3 Active amLODIPine (NORVASC) 5 mg tablet Take 1 tablet (5 mg total) by mouth daily. 5 Active bisacodyL (DULCOLAX) 5 mg EC tablet TAKE 4 TABLETS BY MOUTH AT NOON THE DAY BEFORE YOUR COLONOSCOPY 3 Active clotrimazole (LOTRIMIN) 1 % cream apply topically to the affected area(s) twice daily for fourteen days 5 Active diclofenac (VOLTAREN) 1 % topical gel Apply up to 4x/d to affected joint(s) for pain/swelling 4 Active Advair HFA 115-21 mcg/actuation inhaler INHALE 2 PUFFS BY MOUTH TWICE DAILY EVERY MORNING AND AT BEDTIME 4 Active Breo Ellipta 100-25 mcg/dose inhaler INHALE 1 PUFF BY MOUTH EVERY DAY AT THE SAME TIME RINSE MOUTH AFTER USING 5 Active ibuprofen (ADVIL,MOTRIN) 400 mg tablet Take 1 tablet (400 mg total) by mouth. 5 Active lidocaine-pril ocaine (EMLA) 2.5-2.5 % cream APPLY TOPICALLY TO THE AFFECTED AREA(S) EVERY TWELVE HOURS NEEDED FOR MILD PAIN Active metFORMIN (GLUCOPHAGE) 500 mg tablet TAKE 1 TABLET BY MOUTH TWICE DAILY IN THE MORNING AND IN THE EVENING WITH MEALS Active omeprazole (PriLOSEC) [address] capsule Take 1 capsule (20 mg total) by mouth 1 (one) time each day. Active pravastatin (PRAVACHOL) 40 mg tablet Take 1 tablet (40 mg total) by mouth daily. Active Ozempic 1 mg/dose (4 mg/3 mL) injection pen Inject 1 MG SUBCUTANEOUSLY EVERY 7 DAYS IN THE ABDOMEN, THIGHS OR UPPER ARM. ROTATE INJECTION SITES. Active sertraline (ZOLOFT) 50 mg tablet Take 1 tablet (50 mg total) by mouth 1 (one) time each day. Active terbinafine (LamISIL) 250 mg tablet Take 1 tablet (250 mg total) by mouth daily. Active Encounters Date Type Department Care Team Description 06/28/2025 2:00 PM EST Office Visit Orthopedic Surgery - [address] [phone] Jet Gurerier, DPM Dermatophytosis of nail (Primary Dx); Tinea pedis of both feet; Diabetic mononeuropathy simplex (CMS/HCC V24, CMS/HCC V28) from Last 3 Months Immunizations Immunization Administration Dates Next Due Moderna SARS-CoV-2 COVID-19, [...] PM EDT Office Visit Orthopedic Surgery - [place] [address] [phone] Jet Guerrier, DPM [address] [phone] Health Maintenance Due Date Last Done Comments Colorectal Cancer Screening: Colonoscopy 1962 Diabetes: Annual Foot Exam 1972 Diabetes: Annual Retina Eye Exam 1972 Medicare Annual Wellness Visit 04/27/2024 Social Influencers of Health Screening 04/27/2024 Depression Screening 07/19/2024 Diabetes: Annual Urine Albumin-Creatinine Ratio (uACR) 08/14/2024 Diabetes: Blood Sugar Control Test (HGBA1C) 12/04/2025 06/06/2025, 01/24/2025, 01/24/2025, Additional history exists Diabetes: Annual GFR (Glomerular Filtration Rate) 01/24/2026 01/24/2025, 05/24/2024 Hypertension/CHF/CAD Annual BMP Blood Test 01/24/2026 01/24/2025, 05/24/2024 Cholesterol Screening (Lipid Panel) 01/24/2030 01/24/2025, 05/24/2024 DTaP,Tdap,and Td Vaccines (3 - Td or Tdap) 01/14/2033 01/14/2023, 05/08/2016 Zoster Vaccines Completed 01/21/2023, 11/17/2022 Pneumococcal Vaccine: 50+ Years Completed 04/19/2023, 10/08/2014 RSV Immunization Adult Patients Completed 11/10/2023 Hepatitis B Vaccines Completed 12/09/2023, 06/17/2023, 05/20/2023 HIV Screening Completed 05/24/2024 Hepatitis C Screening Completed 05/24/2024 COVID-19 Vaccine Completed 06/06/2025, 11/2023, 07/20/2023, Additional history exists Influenza Vaccine Completed 06/06/2025, , 04/19/2023, Additional history exists HIB Vaccines Aged Out No longer eligi [...] MEDICARE ADVANTAGE [place]ICAID - [place] Care Teams Experimental Display Builder Relationship Specialty Start Date End Date Gil Suazo DO [address] [place] [phone] PCP - General Family Medicine 09/16/18
== END 2025-07-02 13:21 | disposition home or self-care (01) ==
LOC: HO.HKA 12:57
PROVIDERS: PCP Student in an Organized Health Care Education/Training Program; Visit Provider Internal Medicine Hypertension Specialist
DX: N18.9 Chronic kidney disease, unspecified (principal); I12.9 Hypertensive chronic kidney disease with stage 1 through stage 4 chronic kidney disease, or unspecified chronic kidney disease; E11.9 Type 2 diabetes mellitus without complications
CPT/HCPCS: 99214

== ENCOUNTER → 2025-07-02 12:57 | Outpatient (BNVA) | payer MEDICARE, MEDICAID, SELFPAY | PROVIDERS: PCP Student in an Organized Health Care Education/Training Program; Visit Provider Internal Medicine Hypertension Specialist | DX: I12.9 Hypertensive chronic kidney disease with stage 1 through stage 4 chronic kidney disease, or unspecified chronic kidney disease (principal); E11.22 Type 2 diabetes mellitus with diabetic chronic kidney disease; N18.9 Chronic kidney disease, unspecified; Z79.899 Other long term (current) drug therapy; Z79.84 Long term (current) use of oral hypoglycemic drugs; Z79.85 Long-term (current) use of injectable non-insulin antidiabetic drugs; Z87.891 Personal history of nicotine dependence | CPT/HCPCS: 99212 ==

== ENCOUNTER 2025-07-03 07:25 | Outpatient (REF) | payer MEDICARE, MEDICAID, SELFPAY ==
--- OUTSIDE RECORDS SUMMARY | 2025-06-28 14:00 | XMS_ITS | Encounter Summary ---
[facility] Address [address] [place] [address] Care Team Providers Care Matcher Name Role Phone Gil Suazo DO Primary Care Provider [phone] Reason for Visit * Reason Comments DM Foot Care Encounter Details Date Type Department Care Team (Late st Contact Info) Description 06/28/2025 2:00 PM EST Office Visit Orthopedic Surgery - [place] [address] [phone] Jet Guerrier DPM [address] [phone] Dermatophytosis of nail (Primary Dx); [...] of both feet 3. Diabetic mononeuropathy simplex ([facility] V24, [facility] V28) PLAN: Pt was seen and examined, [...] PM EDT Office Visit Orthopedic Surgery - [place] [address] [phone] Jet Guerrier DPM [address] [phone] documented as of this encounter Visit Diagnoses Diagnosis Dermatophytosis of nail- Primary Tinea pedis of both feet Diabetic mononeuropathy simplex ([facility] V24, [facility] V28) Type II or unspecified type diabetes [...] 02/14/2025 added in this encounter Care Teams Matcher Relationship Specialty Start Date End Date Gil Suazo DO [address] [facility] [address] [place] [address] PCP - General Family Medicine 09/16/18 documented as of this encounter
--- OUTSIDE RECORDS SUMMARY | 2025-07-03 07:29 | XMS_ITS | Encounter Summary ---
Author Organization [employer] Address [address] [facility] [address] [place] [address] Care Team Providers Care Sports Photographer Name Role Phone Shakira Nichols MD Primary Care Pro vider Reason for Visit * Reason Comments Med Refill Encounter Details Date Type Department Care Team ([facility] st Contact Info) Description 11/29/2023 Refill [facility] [address] [place], [place] [phone] Raiza Walker MD 230 [place], [place] [phone] Social History Tobacco Use Types Packs/Day Years [...] Care Team (Late st Contact Info) Description 09/06/2025 10:45 AM EST Office Visit [facility] [address] [place] [phone] Shakira Nichols MD [address] [place] [phone] 11/09/2025 10:15 AM EDT Office Visit [facility] ADULT DENTAL [address] [place] [address] Tameka Barfield [address] [place] [address] documented as of this encounter Visit Diagnoses Not on filedocumented in this encounter Additional Health Concerns Assessment Noted Time PHQ-9 Depression Total Score: 6 04/21/20 9:40 AM EDT documented as of this encounter Care Teams Sports Photographer Relationship Specialty Start Date End Date Shakira Nichols MD [address] [place] [phone] PCP - General Internal Medicine 03/24/23 documented as of this encounter
--- OUTSIDE RECORDS SUMMARY | 2025-07-03 07:29 | XMS_ITS | Encounter Summary ---
Author Organization [employer] Address [address] [place] [address] 7t [place] [address] Care Team Providers Care Vat House Laborer Name Role Phone Shakira Nichols MD Primary Care Pro vider Reason for Visit * Reason Comments Med Refill Encounter Details Date Type Department Care Team ([facility] st Contact Info) Description 10/06/2023 Refill [facility] [address] [place] [address] Shakira Nichols MD [address] [place] [address] Social History Tobacco Use Types Packs/Day Years [...] Description 09/06/2025 10:45 AM EST Office Visit [facility] [address] [place] [phone] Shakira Nichols MD [address] [place] [phone] 11/09/2025 10:15 AM EDT Office Visit [facility] ADULT DENTAL [address] [place] [address] Tameka Barfield [address] [place] [address] documented as of this encounter Visit Diagnoses Not on filedocumented in this encounter Additional Health Concerns Assessment Noted Time PHQ-9 Depression Total Score: 6 04/21/20 9:40 AM EDT documented as of this encounter Care Teams Vat House Laborer Relationship Specialty Start Date End Date Shakira Nichols MD [address] [place] [phone] PCP - General Internal Medicine 03/24/23 documented as of this encounter
--- OUTSIDE RECORDS SUMMARY | 2025-07-03 07:29 | XMS_ITS | Encounter Summary ---
Author Organization [employer] Address [address] [place] [address] [address] [place] [address] Care Team Providers Care Pocketed Spring Assembler Name Role Phone Shakira Nichols MD Primary Care Pro vider Reason for Visit * Reason Comments Med Refill Encounter Details Date Type Department Care Team ([facility] st Contact Info) Description 10/18/2023 Refill [facility] [address] [place] [address] Shakira Nichols MD [address] [place] [address] Social History Tobacco Use Types Packs/Day Years [...] Description 09/06/2025 10:45 AM EST Office Visit [facility] [address] [place] [address] Shakira Nichols MD [address] [place] [phone] 11/09/2025 10:15 AM EDT Office Visit [facility] ADULT DENTAL [address] [place] [address] Tameka Barfield [address] [place] [address] documented as of this encounter Visit Diagnoses Not on filedocumented in this encounter Additional Health Concerns Assessment Noted Time PHQ-9 Depression Total Score: 6 04/21/20 9:40 AM EDT documented as of this encounter Care Teams Pocketed Spring Assembler Relationship Specialty Start Date End Date Shakira Nichols MD [address] [place] [phone] PCP - General Internal Medicine 03/24/23 documented as of this encounter
--- OUTSIDE RECORDS SUMMARY | 2025-07-03 07:29 | XMS_ITS | Encounter Summary ---
Author Organization [employer] Address [address] [place] [address] 7t [place] [address] Care Team Providers Care Pl Sql Programmer Name Role Phone Shakira Nichols MD Primary Care Pro vider Reason for Visit * Reason Comments Med Refill Encounter Details Date Type Department Care Team ([facility] st Contact Info) Description 10/12/2023 Refill [facility] [address] [place] [address] Shakira Nichols MD 230 [place] [address] Social History Tobacco Use Types Packs/Day Years [...] Description 09/06/2025 10:45 AM EST Office Visit [facility] [address] [place] [phone] Shakira Nichols MD [address] [place] [address] 11/09/2025 10:15 AM EDT Office Visit [facility] ADULT DENTAL [address] [place] [address] Tameka Barfield [address] [place] [address] documented as of this encounter Visit Diagnoses Not on filedocumented in this encounter Additional Health Concerns Assessment Noted Time PHQ-9 Depression Total Score: 6 04/21/20 9:40 AM EDT documented as of this encounter Care Teams Pl Sql Programmer Relationship Specialty Start Date End Date Shakira Nichols MD [address] [place] [phone] PCP - General Internal Medicine 03/24/23 documented as of this encounter
--- OUTSIDE RECORDS SUMMARY | 2025-07-03 07:29 | XMS_ITS | Encounter Summary ---
Author Organization [email or web address] Address [address] [place] [address] 7t [place] [address] Care Team Providers Care Recreation Therapy Aides Teacher Name Role Phone Shakira Nichols MD Primary Care Pro vider Reason for Visit * Reason Comments Med Refill Encounter Details Date Type Department Care Team ([facility] st Contact Info) Description 02/06/2024 Refill [facility] [address] [place], [place] [phone] Shakira Nichols MD 230 [place] [address] Social History Tobacco Use Types Packs/Day Years [...] Description 09/06/2025 10:45 AM EST Office Visit [facility] [address] [place] [address] Shakira Nichols MD 230 [place] [address] 11/09/2025 10:15 AM EDT Office Visit [facility] ADULT DENTAL [address] [place] [address] Dieter Barfieldaris [address] [place] [address] documented as of this encounter Visit Diagnoses Not on filedocumented in this encounter Additional Health Concerns Assessment Noted Time PHQ-9 Depression Total Score: 19 024 10:06 AM EDT documented as of this encounter Care Teams Recreation Therapy Aides Teacher Relationship Specialty Start Date End Date Shakira Nichols MD [address] [place] [address] PCP - General Internal Medicine 03/24/23 documented as of this encounter
--- OUTSIDE RECORDS SUMMARY | 2025-07-03 07:29 | XMS_ITS | Encounter Summary ---
Author Organization [employer] Address [address] [place] [address] 7t [place] [address] Care Team Providers Care Paper Grader Name Role Phone Shakira Nichols MD Primary Care Pro vider Reason for Visit * Reason Comments Med Refill Encounter Details Date Type Department Care Team ([facility] st Contact Info) Description 12/14/2023 Refill [facility] [address] [place], [place] [phone] Shakira Nichols MD 230 [place] [address] Chronic low back pain without sciatica, unspecified [...] Description 09/06/2025 10:45 AM EST Office Visit [facility] [address] [place] [address] Shakira Nichols MD [address] [place] [address] 11/09/2025 10:15 AM EDT Office Visit [facility] ADULT DENTAL [address] [place] [address] LicoTameka [address] [place] [address] documented as of this encounter Visit Diagnoses Diagnosis Chronic low back pain without sciatica, unspecified back pain laterality documented in this encounter Additional Health Concerns Assessment Noted Time PHQ-9 Depression Total Score: 6 04/21/20 9:40 AM EDT documented as of this encounter Care Teams Paper Grader Relationship Specialty Start Date End Date Shakira Nichols MD [address] [place] [phone] PCP - General Internal Medicine 03/24/23 documented as of this encounter
--- OUTSIDE RECORDS SUMMARY | 2025-07-03 07:29 | XMS_ITS | Encounter Summary ---
Author Organization [employer] Address [address] [place] [address] 7t [place] [address] Care Team Providers Care Safety Companion Name Role Phone Shakira Nichols MD Primary Care Pro vider Reason for Visit * Reason Comments Med Refill Encounter Details Date Type Department Care Team ([facility] st Contact Info) Description 10/27/2023 Refill [facility] [address] [place] [address] Shakira Nichols MD 230 [place] [address] Social History Tobacco Use Types Packs/Day Years [...] Description 09/06/2025 10:45 AM EST Office Visit [facility] MED[facility] [address] [place] [phone] Shakira Nichols MD [address] [place] [address] 11/09/2025 10:15 AM EDT Office Visit [facility] ADULT DENTAL [address] [place] [address] Tameka Barfield 230 [place] [address] documented as of this encounter Visit Diagnoses Not on filedocumented in this encounter Additional Health Concerns Assessment Noted Time PHQ-9 Depression Total Score: 6 04/21/20 9:40 AM EDT documented as of this encounter Care Teams Safety Companion Relationship Specialty Start Date End Date Shakira Nichols MD [address] [place] [phone] PCP - General Internal Medicine 03/24/23 documented as of this encounter
--- OUTSIDE RECORDS SUMMARY | 2025-07-03 07:29 | XMS_ITS | Encounter Summary ---
Author Organization [employer] Address [address] [place] [address] 7t [place] [address] Care Team Providers Care Color Specialist Name Role Phone Shakira Nichols MD Primary Care Pro vider Reason for Visit * Reason Comments Med Refill Encounter Details Date Type Department Care Team ([facility] st Contact Info) Description 12/09/2023 Refill [facility] [address] [place] [address] Shakira Nichols MD 230 [place] [address] Dyspnea, unspecified; Post covid-19 condition, unspecified Social [...] Description 09/06/2025 10:45 AM EST Office Visit [facility] MED[facility] [address] [place] [address] Shakira Nichols MD [address] [place] [address] 11/09/2025 10:15 AM EDT Office Visit [facility] ADULT DENTAL 230 [place] [address] LicoTameka [address] [place] [address] documented as of this encounter Visit Diagnoses Diagnosis Dyspnea, unspecified Post covid-19 condition, unspecified documented in this encounter Additional Health Concerns Assessment Noted Time PHQ-9 Depression Total Score: 6 04/21/20 9:40 AM EDT documented as of this encounter Care Teams Color Specialist Relationship Specialty Start Date End Date Shakira Nichols MD [address] [place] [phone] PCP - General Internal Medicine 03/24/23 documented as of this encounter
--- OUTSIDE RECORDS SUMMARY | 2025-07-03 07:29 | XMS_ITS | Encounter Summary ---
Author Organization [employer] Address [address] [place] [address] 7t [place] [address] Care Team Providers Care Steel Roller Name Role Phone Shakira Nichols MD Primary Care Pro vider Reason for Visit * Reason Comments Med Refill Encounter Details Date Type Department Care Team ([facility] st Contact Info) Description 10/18/2023 Refill [facility] 230 [place] [address] Shakira Nichols MD 230 [place] [address] Social History Tobacco Use Types Packs/Day Years [...] Description 09/06/2025 10:45 AM EST Office Visit [facility] MED[facility] [address] [place] [address] Shakira Nichols MD [address] [place] [address] 11/09/2025 10:15 AM EDT Office Visit [facility] ADULT DENTAL [address] [place] [address] Tameka Barfield [address] [place] [address] documented as of this encounter Visit Diagnoses Not on filedocumented in this encounter Additional Health Concerns Assessment Noted Time PHQ-9 Depression Total Score: 6 04/21/20 9:40 AM EDT documented as of this encounter Care Teams Steel Roller Relationship Specialty Start Date End Date Shakira Nichols MD [address] [place] [phone] PCP - General Internal Medicine 03/24/23 documented as of this encounter
--- OUTSIDE RECORDS SUMMARY | 2025-07-03 07:29 | XMS_ITS | Encounter Summary ---
Author Organization [employer] Address [address] [facility] 7t [place] [address] Care Team Providers Care Residential Program Director Name Role Phone Shakira Nichols MD Primary Care Pro vider Reason for Visit * Reason Comments Med Refill Encounter Details Date Type Department Care Team ([facility] st Contact Info) Description 11/30/2023 Refill [facility] 230 [place], [place] [phone] Raiza Walker MD 230 [place], [place] [phone] Social History Tobacco Use Types Packs/Day Years [...] Description 09/06/2025 10:45 AM EST Office Visit [facility] MED[facility]INE [address] [place] [address] Shakira Nichols MD [address] [place] [address] 11/09/2025 10:15 AM EDT Office Visit [facility] ADULT DENTAL [address] [place] [address] Tameka Barfield 230 [place] [address] documented as of this encounter Visit Diagnoses Not on filedocumented in this encounter Additional Health Concerns Assessment Noted Time PHQ-9 Depression Total Score: 6 04/21/20 9:40 AM EDT documented as of this encounter Care Teams Residential Program Director Relationship Specialty Start Date End Date Shakira Nichols MD [address] [place] [phone] PCP - General Internal Medicine 03/24/23 documented as of this encounter
--- OUTSIDE RECORDS SUMMARY | 2025-07-03 07:30 | XMS_ITS | Encounter Summary ---
Author Organization [employer] Address [address] [facility] 7t [place] [address] Care Team Providers Care Clinical Staff Pharmacist Name Role Phone Shakira Nichols MD Primary Care Pro vider Encounter Details Date Type Department Care Team ([facility] st Contact Info) Description 07/06/2024 Orders Only [facility] MED[facility] [address] [place] [address] Provider, MD [employer] Social History Tobacco Use Types Packs/Day Years [...] Description 09/06/2025 10:45 AM EST Office Visit [facility] MED[facility] [address] [place] [address] Shakira Nichols MD [address] [place] [address] 11/09/2025 10:15 AM EDT Office Visit [facility] ADULT DENTAL [address] [place] [address] Tameka Barfield [address] [place] [address] documented as of this encounter Procedures Procedure [...] documented as of this encounter Care Teams Clinical Staff Pharmacist Relationship Specialty Start Date End Date Shakira Nichols MD [address] [place] [phone] PCP - General Internal Medicine 03/24/23 documented as of this encounter
--- OUTSIDE RECORDS SUMMARY | 2025-07-03 07:30 | XMS_ITS | Encounter Summary ---
Author Organization [employer] Address [address] [place] [address] 7t [place] [address] Care Team Providers Care Bail Bonding Agent Name Role Phone Shakira Nichols MD Primary Care Pro vider Reason for Visit * Reason Comments Med Change Request Encounter Details Date Type Department Care Team ([facility] st Contact Info) Description 09/16/2023 Refill [facility] [address] [place] [address] Shakira Nichols MD [address] [place] [address] Social History Tobacco Use Types Packs/Day Years [...] Description 09/06/2025 10:45 AM EST Office Visit [facility] MEDIC[facility] [address] [place] [address] Shakira Nichols MD [address] [place] [address] 11/09/2025 10:15 AM EDT Office Visit [facility] ADULT DENTAL [address] [place] [address] Lico, Tameka [address] [place] [address] documented as of this encounter Visit Diagnoses Not on filedocumented in this encounter Additional Health Concerns Assessment Noted Time PHQ-9 Depression Total Score: 6 04/21/20 9:40 AM EDT documented as of this encounter Care Teams Bail Bonding Agent Relationship Specialty Start Date End Date Shakira Nichols MD [address] [place] [address] PCP - General Internal Medicine 03/24/23 documented as of this encounter
--- OUTSIDE RECORDS SUMMARY | 2025-07-03 07:30 | XMS_ITS | Encounter Summary ---
Author Organization [employer] Address [address] [facility] 7t [place] [address] Care Team Providers Care Head Nurse Name Role Phone Shakira Nichols MD Primary Care Pro vider Reason for Visit * Reason Comments Med Refill Encounter Details Date Type Department Care Team (Late st Contact Info) Description 09/20/2023 Refill [facility] ADULT D[facility]AL [address] [place], [place] [phone] Flakito Kapadia DDS [address] [place] [address] Social History Tobacco Use Types Packs/Day Years [...] 10:45 AM EST Office Visit [facility] [address] [place] [address] Shakira Nichols MD 230 [place] [address] 11/09/2025 10:15 AM EDT Office Visit [facility] ADULT DENTAL [address] [place] [address] Lico, Tameka [address] [place] [address] documented as of this encounter Visit Diagnoses Not on filedocumented in this encounter Additional Health Concerns Assessment Noted Time PHQ-9 Depression Total Score: 6 04/21/20 9:40 AM EDT documented as of this encounter Care Teams Head Nurse Relationship Specialty Start Date End Date Shakira Nichols MD 230 [place] [address] PCP - General Internal Medicine 03/24/23 documented as of this encounter
--- OUTSIDE RECORDS SUMMARY | 2025-07-03 07:30 | XMS_ITS | Clinical Summary ---
Author Organization [employer] Address [address] [place] [address] 7[address] [place] [address] Care Team Providers Care Panel Fitter Name Role Phone Shakira Nichols MD Primary Care Pro vider Allergies Active Allergy Reactions Criticality Noted Date Comments Dapagliflozin 08/20/2023 Mx urinary symptoms, not well tolerated Medications * This document contains information received from the source organization and may not represent a complete record from that organization. Alcohol Sheets (Alcoh-Wipe) sheet Test daily before all meals/snacks and once before bedtime. 100 each 2 05/21/20 23 Active glucose blood (FREESTYLE LITE) test strip Use bid. Dx diabetes 100 each 2 05/21/20 23 Active Blood Glucose Monitoring Suppl (Bizen Verio) w/Device kit Inject 1 Device under the skin 2 times daily. TEST BLOOD SUGAR TWICE DAILY DIRECTED 1 kit 07/09/20 23 Active Alcohol Swabs (Easy Touch Alcohol Prep Medium) 70 % pads USE DIRECTED 100 each 11 09/07/19 24 Active Bisacodyl EC 5 MG EC tablet TAKE 4 TABLETS BY MOUTH AT NOON THE DAY BEFORE YOUR COLONOSCOPY 07/06/20 23 Active Diclofenac Sodium (Voltaren) 1 % gelIndications: Great toe pain, left Apply up to 4x/d to affected joint(s) for pain/swelling 100 g 2 04/07/20 24 Active clotrimazole (Lotrimin) 1 % cream APPLY TO SKIN AND TOENAILS DAILY FOR 12 WEEKS 04/21/20 24 Active Jardiance 10 MG Take 10 mg by mouth Once per day. 05/04/20 24 Active Lancets (AGV Mediauch Delica Plus [id number]) misc TEST BLOOD SUGAR TWICE DAILY DIRECTED 100 each 5 1:11 PM EST 08/29/19 25 Active glucose blood (OneTouch Verio) test strip TEST BLOOD SUGAR TWICE A DAY 100 each 5 1:11 PM EST 08/29/19 25 026 Active lidocaine-prilo david (Emla) 2.5-2.5 % creamIndication s:Right elbow pain APPLY TOPICALLY TO THE AFFECTED AREA(S) EVERY TWELVE HOURS NEEDED FOR MILD PAIN 30 g 2 11/02/19 25 Active Ventolin HFA 108 (90 Base) MCG/ACT inhalerIndicati ons:Dyspnea, unspecified,Pos t covid-19 condition, unspecified INHALE 2 PUFFS BY MOUTH EVERY 4 HOURS NEEDED FOR WHEEZING OR SHORTNESS OF BREATH 18 g 1 12/29/19 25 Active Additional Information Patient not taking.Reported on 06/18/2025 terbinafine (LamISIL) 250 MG tablet Take 250 mg by mouth Once per day. Active acetaminophen (Tylenol) 500 MG tablet Take 1 tablet (500 mg) by mouth every 8 (eight) hours if needed for mild pain. 30 tablet 02/15/20 25 Active omeprazole (PriLOSEC) [address] capsule TAKE 1 CAPSULE BY MOUTH EVERY DAY 90 capsule 1 02/28/20 25 Active amLODIPine (Norvasc) 5 MG tablet TAKE 1 TABLET BY MOUTH EVERY DAY 90 tablet 1 04/16/20 25 Active metFORMIN (Glucophage) 500 MG tablet TAKE 1 TABLET BY MOUTH TWICE DAILY IN THE MORNING AND IN THE EVENING WITH MEALS 60 tablet 3 5 1:11 PM EST 04/26/20 25 Active pravastatin (Pravachol) 40 MG tablet TAKE 1 TABLET BY MOUTH EVERY DAY 90 tablet 1 05/18/20 25 Active losartan (Cozaar) 100 MG tablet TAKE 1 TABLET BY MOUTH EVERY DAY 90 tablet 1 5 1:11 PM EST 05/28/20 25 Active Ozempic, 2 MG/DOSE, 8 MG/3ML solution pen-injectorInd ications:Type 2 diabetes mellitus without complication, without long-term current use of insulin (HCC) Inject 2 MG SUBCUTANEOUSLY EVERY 7 DAYS IN THE ABDOMEN, THIGHS OR UPPER ARM. ROTATE INJECTION SITES. 3 mL 3 5 11:08 AM EST 06/01/20 25 Active ibuprofen 400 MG tablet Take 1 tablet (400 mg) by mouth 3 times daily. 20 tablet 02/15/20 25 025 Discontinu ed(Other) clotrimazole (Lotrimin) 1 % cream Apply topically 2 times daily for 14 days. 30 g 5 3:10 PM EST 06/06/20 25 025 Active Problems Problem Noted Date Diagnosed Date Balanitis 06/06/2025 Dental plaque 05/10/2025 Bone spicules of jaw 04/30/2025 Pain, dental 01/10/2025 Stage 3b chronic kidney disease (CMS/HCC) 2024 Ill-fitting dentures 09/08/2024 Great toe pain, left 03/08/2024 Right elbow pain 03/08/2024 CKD (chronic kidney disease) 01/18/2024 Dental caries 12/15/2023 Lumbago 12/07/2023 Dental root caries 09/28/2023 Missing teeth, acquired 06/21/2023 GERD (gastroesophageal reflux disease) Left hand [...] information for [facility] as they have more Faroese speaking therapist which more insurance coverage. Pt states he will utilize the walk-in services with [facility]. clinician will follow-up w pt on referral and MH progress. Asthma 04/21/2023 Hypertension 04/21/2023 Type 2 diabetes mellitus wit hout complication, without long-term current use of insulin 04/21/2023 Health care maintenance 04/21/2023 Encounters Date Type Department Care Team Description 06/18/2025 3:00 PM EST Office Visit [facility] [address] [place] [phone] Flakito Kapadia DDS Dental caries (Primary Dx) 06/06/2025 9:00 AM EST Office Visit [facility] [address] [place] [phone] Shakira Nichols MD Hypertension, unspecified type (Primary Dx); Type 2 diabetes mellitus without complication, without long-term current use of insulin (HCC); Encounter for immunization; Health care maintenance; Depression, recurrent (CMS/HCC); Balanitis 06/06/2025 Travel 06/05/2025 Telephone [facility] [address] [place] [phone] Shakira Nichols MD chart prep 06/01/2025 Refill [facility] [address] [place], [place] [phone] Shakira Nichols MD Type 2 diabetes mellitus without complication, without long-term current use of insulin (HCC) 05/30/2025 Patient Outreach [facility] [address] [place] [phone] Shakira Nichols MD Care Coordination (W outreach for SDOH housing search-referral completed /) 05/30/2025 Patient Outreach [facility] [address] [place] [phone] Shakira Nichols MD Pre-visit Planning (SDOH Screening positive and Tobacco screening negative) 05/27/2025 Refill [facility] [address] [place] [phone] Shakira Nichols MD 05/18/2025 Refill [facility] [address] [place], [place] [phone] Shakira Nichols MD 05/10/2025 9:30 AM EDT Office Visit [facility] [address] [place] [address] Tameka Barfield Dental caries (Primary Dx); Missing teeth, acquired; Dental plaque 05/09/2025 Telephone [facility] [address] [place] [address] Shakira Nichols MD olinda recall 04/30/2025 3:30 PM EDT Office Visit [facility] [address] [place] [address] Flakito Kapadia, DIANNE Bone spicules of jaw (Primary Dx) 04/26/2025 Refill [facility] [address] [place] [address] Shakira Nichols MD 04/15/2025 Refill [facility] [address] [place] [address] Shakira Nichols MD from Last 3 Months Immunizations Immunization Administration Dates Next Due Hep B, adult 12/09/2023,06/17/2023,05/20/2023 Influenza injectable quadriv alent preservative free 05/15/2020 Influenza, IIV3, injectable 04/19/2023 Influenza, seasonal, injecta ble, preservative free 06/06/2025,05/23/2024 Moderna Covid-19 Vaccine 12+ 05/21/2022 Pfizer Covid-19 Vaccine 12+ 06/06/2025,1 07/23/2023,07/20/2023,07/22,11/06/2020,10/15/2020 Pfizer Covid-19 Vaccine 12+ Bivalent 05/21/2022 Pneumococcal [...] = 0.6 oz pur e alcohol) social Alcohol Answer Date Recorded How often do you have a drink containing alcohol ? 0 06/18/2025 Average Number of Drinks Not on file 025 How often do you have six or more drinks on one occasion? 0 06/18/2025 Depression Answer Date Recorded Patient Health Questionnaire-9 Score 0 10/25/2024 Patient Health Questionnaire-9 Score 0 10/25/2024 Last PHQ-9: Questionnaire Data Not on file 0 10/25/2024 Housing Stability Answer Date Recorded What is your housing situation today? I have devi negrete 05/30/[address] you li ve. Do you have problems with any of the following? None of the above 05/30/2025 Food Insecurity Answer Date Recorded Within the past 12 months, y ou worried that your food would run out before you got money to buy more: Sometimes True 2024 Within the past 12 months,th e food you bought just didn't last and you didn't have enough money to get more: Sometimes True 05/30/2025 Transportation Answer Date Recorded In the past 12 months, has l ack of transportation kept you from medical appts, meetings, work or from getting things needed for daily living? No 05/30/2025 Utilities Answer Date Recorded In the past 12 months, has t he [employer]ib[employer], gas, oil or water company threatened to shut off services in your home? No 05/30/2025 Depression Answer Date Recorded Patient Health Questionnaire-2 Score 0 10/25/2024 Internet Access Answer Date Recorded Internet Access Q1 Yes 05/30/2025 Internet Access Q2 Not on file 05/30/2025 Sex and Gender Information Value Date Recorded Sex Assigned at Male 05/18/2022 10:39 AM EDT Legal Sex Male 10:39 AM EDT Gender Identity Male 05/18/2022 10:39 AM EDT Sexual Orientation Straight 04/21/2023 9: 45 AM EDT Last Filed Vital Signs Vital Sign Reading Time Taken Comments Blood Pressure 132/74 06/18/2025 2:56 PM EST Pulse 70 06/18/2025 2:56 PM EST Temperature 36.3 C (97.3 F) 06/06/2025 9:14 AM EST Respiratory Rate 20 06/06/2025 9:14 AM EST Oxygen Saturation 99% 06/06/2025 9:14 AM EST Inhaled Oxygen Concentration - - Weight 79.4 kg (175 lb) 06/06/2025 9:14 AM EST Height 180.3 cm (5' 11 ) 06/06/2025 9:14 AM EST Body Mass Index 24.41 06/06/2025 9:14 AM EST Plan of Treatment Upcoming Encounters Date Type Department Care Team (Late st Contact Info) Description 09/06/2025 10:45 AM EST Office Visit [facility] [address] [place] [phone] Shakira Nichols MD [address] [place] [address] 11/09/2025 10:15 AM EDT Office Visit [facility] [address] [place] [address] Dieter Barfieldaris [address] [place] [address] Health Maintenance Due Date Last Done Comments CT Colonography 1962 FIT DNA/Cologuard 1962 FIT 1962 FOBT 1962 Sigmoidoscopy 1962 Diabetes: Foot Exam 1972 Eye Exam 1972 Diabetes: Hemoglobin A1C 09/06/2025 025, 01/24/2025, 01/24/2025, Additional history exists Alcohol/Substance Use Screening 10/25/2025 10/25/2024 Depression Screening 10/25/2025 10/25/2024, 10/26/19 25 Disability Screening 10/25/2025 10/25/2024 Dental Oral Exam 11/09/2025 05/10/2025, 06/21/2023 Dental Prophylaxis 11/09/2025 05/10/2025, 0 08/04/2024, 07/22/2023 Diabetes: Urine Protein Screening 01/24/2026 01/24/2025, 05/24/2024, 01/18/2024, Additional history exists Lipid Panel 01/24/2026 01/24/2025, 12/2023, 11/30/2023, Additional history exists Dental X-Ray: Bitewings 05/11/2026 05/10/2025, 06/21 SDOH Screening 05/30/2026 05/30/2025 Tobacco Screening 06/18/2026 06/18/2025 Dental X-Ray: Full Mouth 01/12/2028 01/10/2025, 10/2022 Colonoscopy 11/01/2028 11/02/2023 Colorectal Cancer Screening 11/01/2028 DTaP/Tdap/Td Vaccines (3 - Td or Tdap) 01/14/2033 01/14/2023, 05/08/2016 Zoster Vaccines Completed 01/21/2023, 11/17/2022 Pneumococcal Vaccine: 50+ Years Completed 04/19/2023, 10/08/2014 RSV Patients and Patients Aged 60 years or older Completed 11/10/2023 Hepatitis B Vaccines Completed 12/09/2023, 06/17/2023, 05/20/2023 HIV Screening Completed 05/24/2024, 04/23/2023 Hepatitis C Screening Completed 05/24/2024, 023 COVID-19 Vaccine Completed 06/06/2025, 11/2023, 07/20/2023, Additional [...] on patient's age to complete this topic Goals Goal Patient Goal Type Associated Problems Recent Progress Patient-Stated? Author Help patients manage their type 2 diabetes Care Plan Help patients manage their type 2 diabetes No Florinda Joshi Weekly blood pressure task Care Plan Weekly blood pressure task No Florinda Joshi Help patients manage their type 2 diabetes Care Plan Help patients manage their type 2 diabetes No Florinda Joshi Patient has chronic kidney disease Care Plan Patient has chronic kidney disease No Florinda Joshi Weekly blood pressure task Care Plan Weekly blood pressure task No Florinda Joshi Patient has chronic kidney disease Care Plan Patient has chronic kidney disease No Florinda Joshi Weekly blood pressure task Care Plan Weekly blood pressure task No Darryn Beal Weekly blood pressure task Care Plan Weekly blood pressure task No Darryn Beal Patient has chronic kidney disease Care Plan Patient has chronic kidney disease No Darryn Beal Patient has chronic kidney disease Care Plan Patient has chronic kidney disease No Darryn Beal Weekly blood pressure task Care Plan Weekly blood pressure task No Sarah Dowell MA Weekly blood pressure task Care Plan Weekly blood pressure task No Sarah Dowell MA Patient has chronic kidney disease Care Plan Patient has chronic kidney disease No Sarah Dowell MA Patient has chronic kidney disease Care Plan Patient has chronic kidney disease No Sarah Dowell MA Weekly blood pressure task Care Plan Weekly blood pressure task No Sarah Dowell MA Weekly blood pressure task Care Plan Weekly blood pressure task No Sarah Dowell MA Patient has chronic kidney disease Care Plan Patient has chronic kidney disease No Sarah Dowell MA Patient has chronic kidney disease Care Plan Patient has chronic kidney disease No Sarah Dowell MA Weekly blood pressure task Care Plan Weekly blood pressure task No Flakito Kapadia DDS Weekly blood pressure task Care Plan Weekly blood pressure task No Flakito Kapadia DDS Patient has chronic kidney disease Care Plan Patient has chronic kidney disease No Flakito Kapadia DDS Patient has chronic kidney disease Care Plan Patient has chronic kidney disease No Flakito Kapadia DDS Procedures Procedure Name Priority Date/Time Associated Diagnosis Comments CASE PRESENTATION, DETAILED AND EXTENSIVE TREATMENT PLANNING Routine 06/18/2025 3:00 PM EST 3 M RESIN-BASED COMPOSITE - 1 SURF, POSTERIOR Routine 06/18/2025 3:00 PM EST 16 O RESIN-BASED COMPOSITE - 1 SURF, POSTERIOR Routine 06/18/2025 3:00 PM EST POCT GLYCATED HEMOGLOBIN, TOTAL Routine 06/06/2025 9:18 AM EST Type 2 diabetes mellitus without complication, without long-term current use of insulin ([facility]) POCT GLUCOSE Routine 06/06/2025 9:18 AM EST Type 2 diabetes mellitus without complication, without long-term current use of insulin ([facility]) 17 ADD TOOTH TO EXISTING PARTIAL DENTURE Routine 05/10/2025 9:30 AM EDT PERIODIC ORAL EVALUATION - ESTABLISHED PATIENT Routine 05/10/2025 9:30 AM EDT INTRAORAL - PERIAPICAL EACH ADDITIONAL RADIOGRAPHIC IMAGE Routine 05/10/2025 9:30 AM EDT Dental caries Missing teeth, acquired Dental plaque ORAL HYGIENE INSTRUCTIONS Routine 05/10/2025 9:30 AM EDT Dental caries Missing teeth, acquired Dental plaque PROPHYLAXIS - ADULT Routine 05/10/2025 9 :30 AM EDT Dental plaque INTRAORAL - PERIAPICAL EACH ADDITIONAL RADIOGRAPHIC IMAGE Routine 05/10/2025 9:30 AM EDT INTRAORAL - PERIAPICAL FIRST RADIOGRAPHIC IMAGE Routine 05/10/2025 9:30 AM EDT BITEWINGS - 4 RADIOGRAPHIC IMAGES Routine 05/10/2025 9:30 AM EDT Dental caries Missing teeth, acquired ADJUST PARTIAL DENTURE - MAXILLARY Routine 04/30/2025 3:30 PM EDT DENTURE IMPRESSION Routine 04/30/2025 3: 30 PM EDT ALBUMIN, RANDOM URINE W/CREATININE Routine 01/24/2025 10:51 AM EDT Type 2 diabetes mellitus without complication, without long-term current use of insulin ([facility]/HCC) LIPID PANEL, STANDARD Routine 01/24/2025 10:51 AM EDT Type 2 diabetes mellitus without complication, without long-term current use of insulin (CMS/HCC) PANORAMIC RADIOGRAPHIC IMAGE Routine 01/10/2025 11:30 AM EDT HEPATITIS C AB W/REFL TO HCV RNA, QN, PCR Routine 05/24/2024 9:15 AM EST Annual physical exam HIV 1/2 ANTIGEN/ANTIBODY, FOURTH GENERATION W/RFL Routine 05/24/2024 9:15 AM EST Annual physical exam HM COLONOSCOPY Routine 11/02/2023 8:45 AM EDT from Last 3 Months or Most Recently Relevant to Health Maintenance Results * (ABNORMAL) POCT Hgb A1c (06/06/2025 9:18 AM EST) Hemoglobin A1C 6.0(A) 4.0 - 5.7 % QC Media Lot # [id number] Lot# Expiration Date Blood 06/06/2025 9:18 AM EST Shakira Martinez MD POINT OF CARE CHRISTY T ENTER/EDIT ORDERABLES Final Result * POCT Glucose (06/06/2025 9:18 AM EST) Glucose Blood, POC 143 60 - 200 mg/dL QC Media Lot # [id number] Lot# Expiration Date Blood Capillary blood specimen / Unknown 06/06/2025 9:18 AM EST Shakira Martinez MD POINT OF CARE CHRISTY T ENTER/EDIT ORDERABLES Final Result * Albumin, Random Urine W/Creatinine (01/24/2025 10:51 AM EDT) Creatinine, Urine 125.81 mg/dL [facility] Microalbumin Urine <5.0 mg/L [facility] Microalbum Creatinine Ratio Ur TNP <30 ug/mg cr [facility] Comment:Unable to calculate albumin/creatinine ratio due to lowmicroalbumin or creatinine result. Urine (Urine, Random) 01/24/2025 10:51 AM EDT 01/24/2025 12:04 PM EDT us Shakira Martinez MD LAB URINE ORDERAB LES Final Result Performing Organization Address [facility] Co de Phone Number [facility] [address] [place] [phone] * Lipid Panel, Standard (01/24/2025 10:51 AM EDT) Triglycerides 112 <150 mg/dL [facility] Comment:Desirable Triglyceri de: less than 150 mg/dLBorderline High Triglyceride 150-199 mg/dLHigh Triglyceride: 200-499 mg/dLVery High Triglyceride: greater than or equal to 5OO mg/dL Cholesterol 137 <200 mg/dL [facility] Comment:Desirable Cholestero l: less than 200 mg/dLBorderline High Cholesterol: 200-239 mg/dLHigh Cholesterol: greater than 239 mg/dL LDL Cholesterol Calculated 70 <100 mg/dL [facility] Comment:Desirable LDL: less than 100 mg/dLNear Optimal/Above Optimal LDL: 110- 129 mg/dLBorderline High LDL: 130-159 mg/dLHigh LDL: 160-189 mg/dLVery High LDL: greater than or equal to 190 mg/dL HDL Cholesterol 45 >40 mg/dL [facility] Comment:Desirable HDL: great er than 40 mg/dL Note: This HDL assay may give artificially low results in patients with liver disease. Blood Venous blood specimen / Unknown 01/24/2025 10:51 AM EDT 01/24/2025 12:00 PM EDT us Shakira Martinez MD LAB BLOOD ORDERAB LES Final Result Performing Organization Address [facility]/ZIP Co de Phone Number [facility] [address] [place] [address] [phone] * Hepatitis C Antibody with Reflex to HCV, RNA, Quantitative, Real-Time PCR (05/24/2024 9:15 AM EST) Hepatitis C Antibody Nonreactive Nonreactive [facility] Comment:Antibodies to HCV no t detected; does not exclude early acuteHCV infection. Blood Venous blood specimen / Unknown 05/24/2024 9:15 AM EST 05/24/2024 11:25 AM EST Shakira Martinez MD LAB BLOOD ORDERAB LES Final Result Performing Organization Address City/[facility]/ZIP Co de Phone Number [facility] [address] [place] [address] [phone] * HIV-1/2 Antigen and Antibodies, Fourth Generation, with Reflexes (05/24/2024 9:15 AM EST) [facility] HIV AB/AG Nonreactive Nonreactive [facility] Comment:HIV-1 p24 Ag and/or HIV-1/HIV-2 Ab not detected.A test result that is nonreactive does not exclude thepossibility of exposure to or infection with HIV-1 and/orHIV-2. Nonreactive results in this assay for individualswith prior exposure to HIV-1 and/or HIV-2 may be due toantigen and antibody levels that are below the limit ofdetection of this assay.The Stamp[employer]it HIV Ag/Ab Combo assay result andsupplemental assay results should be interpreted inconjunction with the patient's clinical presentation,history and other laboratory results. If the results areinconsistent with clinical evidence, additional testing issuggested to confirm the result. Blood Venous blood specimen / Unknown 05/24/2024 9:15 AM EST 05/24/2024 11:25 AM EST us Shakira Martinez MD LAB BLOOD ORDERAB LES Final Result Performing Organization Address City/[facility]/ZIP Co de Phone Number [facility] [address] [place] [phone] [phone] * Hm Colonoscopy (11/02/2023 8:45 AM EDT) us Refugio Fried MD HEALTH MAINTENANCE Final Result from Last 3 Months or Most Recently Relevant to Health Maintenance Additional Health Concerns Active Problems Noted Date Diagnosed Date Help patients manage their type 2 diabetes 05/30 Weekly blood pressure task 05/30/2025 Help patients manage their type 2 diabetes 05/30 Patient has chronic kidney disease 05/30/2025 Weekly blood pressure task 05/30/2025 Patient has chronic kidney disease 05/30/2025 Weekly blood pressure task 05/30/2025 Weekly blood pressure task 05/30/2025 Patient has chronic kidney disease 05/30/2025 Patient has chronic kidney disease 05/30/2025 Weekly blood pressure task 06/05/2025 Weekly blood pressure task 06/05/2025 Patient has chronic kidney disease 06/05/2025 Patient has chronic kidney disease 06/05/2025 Weekly blood pressure task 06/05/2025 Weekly blood pressure task 06/05/2025 Patient has chronic kidney disease 06/05/2025 Patient has chronic kidney disease 06/05/2025 Weekly blood pressure task 06/18/2025 Weekly blood pressure task 06/18/2025 Patient has chronic kidney disease 06/18/2025 Patient has chronic kidney disease 06/18/2025 [address] [place] [address] [facility] STANDARD [employer] MEDICARE REPLACEMENT DENTAL[place] STAND ADULT DENTAL - [employer] MEDICARE Care Teams Panel Fitter Relationship Specialty Start Date End Date Shakira Nichols MD [address] [place] [address] PCP - General Internal Medicine 03/24/23
--- OUTSIDE RECORDS SUMMARY | 2025-07-03 07:30 | XMS_ITS | Encounter Summary ---
Author Organization [employer] Address [address] [place] [address] [address] [place] [address] Care Team Providers Care Pocket Builder Name Role Phone Shakira Nichols MD Primary Care Pro vider Reason for Visit * Reason Comments Med Change Request Encounter Details Date Type Department Care Team ([facility] Contact Info) Description 07/09/2023 Refill [facility] [address] [place] [address] Shakira Nichols MD [address] [place] [address] Social History Tobacco Use Types Packs/Day Years [...] EST Office Visit [facility] [address] [place] [phone] Shakira Nichols MD [address] [place] [phone] 11/09/2025 10:15 AM EDT Office Visit [facility] [address] [place] [phone] Tameka Barfield [address] [place] [address] documented as of this encounter Visit Diagnoses Not on filedocumented in this encounter Additional Health Concerns Assessment Noted Time PHQ-9 Depression Total Score: 6 04/21/20 9:40 AM EDT documented as of this encounter Care Teams Pocket Builder Relationship Specialty Start Date End Date Shakira Nichols MD [address] [place] [phone] PCP - General Internal Medicine 03/24/23 documented as of this encounter
--- OUTSIDE RECORDS SUMMARY | 2025-07-03 07:30 | XMS_ITS | Encounter Summary ---
Author Organization [employer] Address [address] [facility] [address] [place] [address] Care Team Providers Care Band Builder Name Role Phone Shakira Nichols MD Primary Care Pro vider Encounter Details Date Type Department Care Team (Late st Contact Info) Description 07/28/2023 Abstract [facility] [address] [place] [address] Jose L Malave, DMD [address] [place] [address] Social History Tobacco Use Types Packs/Day Years [...] 10:45 AM EST Office Visit [facility] [address] [place] [address] Shakira Nichols MD [address] [place] [address] 11/09/2025 10:15 AM EDT Office Visit [facility] [address] [place] [address] Lico, Tameka [address] [place] [address] documented as of this encounter Visit Diagnoses Not on filedocumented in this encounter Additional Health Concerns Assessment Noted Time PHQ-9 Depression Total Score: 6 04/21/20 9:40 AM EDT documented as of this encounter Care Teams Band Builder Relationship Specialty Start Date End Date Shakira Nichols MD [address] [place] [phone] PCP - General Internal Medicine 03/24/23 documented as of this encounter
--- OUTSIDE RECORDS SUMMARY | 2025-07-03 07:30 | XMS_ITS | Clinical Summary ---
Author Organization [address] [facility] Address [address] [place] [address] Phone Care Team Providers Care Manager Residential Name Role Phone Gil Suazo DO Primary Care Provider Allergies Active Allergy Reactions Criticality Noted Date [...] PM EST Office Visit Orthopedic Surgery - [address] [id number] Jet Gurerier, DPM Dermatophytosis of [...] PM EDT Office Visit Orthopedic Surgery - [place] [address] [address] Jet Guerrier, DPM [address] [address] Health Maintenance Due Date Last [...] MEDICARE ADVANTAGE MEDICAID - [place] Care Teams Manager Residential Relationship Specialty Start Date End Date Gil Suazo DO [address] [place] [id number] PCP - General Family Medicine 09/16/18
[2025-07-03 07:59] LABS: Appearance Urine Clear; Glucose Urine UA >=1000 mg/dL (Negative); PH 6.0 (5.0-9.0); Specific Gravity - Urine >= 1.030 (1.005-1.025); UMIC TRIGGER UA YES
[2025-07-03 08:22] LABS: Total Protein Urine Random < 7 mg/dL (<12)
[2025-07-03 08:48] LABS: Anion Gap 11 (12-20); Blood Urea Nitrogen 15 mg/dL (9-16); Calcium 9.4 mg/dL (8.4-10.2); Carbon Dioxide 26 mmol/L (22-29); Chloride 109 mmol/L (96-108); Estimated Glomerular Filt Rate 59; Potassium 4.3 mmol/L (3.3-5.1); Sodium 142 mmol/L (135-145)
== END 2025-07-03 07:26 | disposition home or self-care (01) ==
LOC: HO.LAB 07:25
PROVIDERS: PCP Student in an Organized Health Care Education/Training Program; Visit Provider Internal Medicine Hypertension Specialist
DX: N18.9 Chronic kidney disease, unspecified (principal)
CPT/HCPCS: 36415; 80048; 81001; 81003; 82570; 84156